=== PATIENT | female | born 1995 | race Caucasian/White ===

== ENCOUNTER 2025-02-25 21:28 | Outpatient (CLI) | payer MEDICAID, SELFPAY ==
--- OUTSIDE RECORDS SUMMARY | 2025-02-25 21:33 | XMS RPT_ITS | CCD ---
Author Organization [facility] Inform ion [facility] Care Team Providers Care Drug Abuse Worker Name Role Phone Major KETTLE COOK, Maren E Unavailable Unavailable Major KETTLE COOK, Maren E Unavailable Unavailable ARNOLD DIAL Attending Unavailable KELSEA WHITE Primary Care Unava ilable KELSEA WHITE Primary Care Unava ilable KAL SALVADOR, JANICE Attending Unavailabl e KELSEA WHITE Primary Care Unava ilable ARNOLD DIAL Attending Unavailable KELSEA WHITE Attending Unava ilable KELSEA WHITE Primary Care Unava ilable Amy Meyers CNM Attending Provider Halle Barker CNM Attending Provider Halle Barker CNM Referring Provider Dr. Kelsea Luz DO Attending Provider Jo WATTS, Dr. Moreno Attending Provider [phone] KELSEA WHITE DO Primary Care [facility] KELSEA DON Primary Care Unava ilable MAGDA SUAZO Attending Unavailable KELSEA VASQUEZ Referring Unavailab le KELSEA DON Primary Care Unava ilable KARI KAY Attending Unavailable KELSEA VASQUEZ Referring Unavailab le KELSEA WHITE DO Primary Care Un available DR JAY RAINES MD Attending Unavailab le JHON-KELSEA FLORENTINO DO Primary Care Un available KELSEA WHITE DO Attending Un available Heather Webber Attending Provider Dr. Tiffanie Osorio MD Referring Provider [phone] Amy Meyers CNM Attending Provider [phone] Kelsea Luz Attending UnavailTiffanie Pizano Attending Unavailable Jack HUERTA, Heather Attending Unavailable Amy Meyers Attending Unavailable Halle aBrker Attending Unavailable Halle Barker Referring Unavailable Tiffanie Osorio Attending Unavailable Amy Meyers Attending Unavailable Amy Meyers Attending Unavailable Kelsea Luz Attending UnavailAmy Roberts Attending Unavailable Amy Meyers Referring Unavailable Tiffanie Osorio Referring Unavailable Tiffanie Osorio Attending Unavailable Luigi, Amy Attending Unavailable Tiffanie Osorio Attending Unavailable Jack HUERTA, Heather Attending Unavailable Medications Current Medications Medication Drug Class(es) Dates Sig (Normalized) Sig (Original) Multivit 83-Btbx-Shclvu 1-Dha (Pnv-Dha) 27 mg iron-1 mg -300 mg capsule (9 sources) Start: 08-04-2024 Multivit 36-Rjxh-Rqfdjt 1-Dha (Pnv-Dha) 27 mg iron-1 mg -300 mg capsule Active NMA PO August 04, 2024 1:00am ondansetron 4 mg oral tablet (1 source) Serotonin-3 Receptor Antagonist Start: 10-30-2024 End: 11-02-2024 Zofran 4 mg oral tablet Dose : 4 mg = 1 tab(s), Oral, q8h, PRN Nausea/Vomiting, X 3 day(s), # 9 tab(s), 0 Refill(s), 11/02/24 4:30:00 PM EDT Start Date: 10/30/24 Stop Date: 11/02/24 Status: Ordered Quantity: 9.0 Unit: tab(s) Repeat number: 1 vitamin b6 10 mg oral tablet (9 sources) Start: 08-04-2024 take 1 tablet by mouth three times daily Pyridoxine (Vitamin B6) 10 mg tablet Active 10 mg PO THREE TIMES A DAY August 04, 2024 1:00am Completed/Discontinued Medications Medication Drug Class(es) Dates Sig (Normalized) Sig (Original) ibuprofen 200 mg oral tablet (2 sources) Nonsteroidal Anti-inflammatory Drug Start: 01-15-2017 ADDAPRIN 200 MG TABS PRN IBUPROFEN [id number] Maren E Pedrito KETTLE COOK Problems Active Problems Problem Classification Problem Date Documented Da te Episodic/Chronic Headache; including migraine (2 sources) Headache; including migraine; Translations: [Headache, unspecified] Onset: 05-22-2022 Immunizations and screening for infectious disease (1 source) Encounter for immunization; Translations: [Encounter for immunization] Onset: 01-01-2025 Episodic Nausea and vomiting (1 source) Nausea 07-13-2024 Episodic Nutritional deficiencies (1 source) Vitamin D deficiency 04-01-2022 Chronic Other complications of (20 sources) Maternal obesity complicating , childbirth and the puerperium, antepartum; Translations: [Obesity complicating , unspecified trimester] 08-21-2024 Chronic Comment on above: [id number] Other complications of (1 source) Obesity complicating , second trimester; Translations: [Obesity complicating , second trimester] Onset: 02-22-2025 Chronic Other complications of (1 source) Obesity complicating , unspecified trimester; Translations: [Obesity complicating , unspecified trimester] Onset: 10-20-2024 Chronic Other complications of (20 sources) H/O: depression; Translations: [History of depression, currently ] 08-04-2024 Episodic Other complications of (20 sources) RhD negative; Translations: [Other specified related conditions, unspecified trimester] 08-04-2024 Episodic Comment on above: O-, Rhogam @ 28wks(H usband is O+) O-, Rhogam @ 28wks(H usband is O+) given 12/20/24 Other complications of (1 source) Vomiting of ; Translations: [Vomiting of , unspecified] Onset: 10-30-2024 Episodic Other complications of (1 source) Vomiting of , unspecified; Translations: [Vomiting of , unspecified] Onset: 10-30-2024 Episodic Other complications of (1 source) Other specified related conditions, unspecified trimester; Translations: [Other specified related conditions, unspecified trimester] Onset: 02-22-2025 Episodic Other nutritional; endocrine; and metabolic disorders (1 source) Body mass index 30+ - obesity 04-01-2023 Chronic Other nutritional; endocrine; and metabolic disorders (1 source) Obesity 04-01-2023 Chronic Other and delivery including normal (20 sources) Normal ; Translations: [Encounter for supervision of normal , unspecified, unspecified trimester] Onset: 10-20-2024 08-21-2024 Episodic Comment on above: PRR, , DIANDRA 03/14, ADAM Olivares, Julio declined NIPT & Simon ier testing declined NIPT & Simon ier testing. low normal CL-repeat US 2 weeks. PRR, , DIANDRA 03/14,boy herve PC Elise, Julio Other upper respiratory disease (1 source) Allergic rhinitis 03-31-2021 Chronic Other upper respiratory disease (2 sources) Pain in throat; Translations: [Pain in throat] Onset: 05-22-2022 Episodic Other upper respiratory disease (2 sources) Nasal congestion; Translations: [Nasal congestion] Onset: 05-22-2022 Episodic Residual codes; unclassified (20 sources) Family history of malignant neoplasm of breast in first degree relative; Translations: [Family history of malignant neoplasm of breast] 08-04-2024 Episodic Comment on above: Mother 35yo- , Unknown if genetic testing was done Residual codes; unclassified (1 source) Family history of malignant neoplasm of breast; Translations: [Family history of malignant neoplasm of breast] Onset: 02-22-2025 Episodic Residual codes; unclassified (1 source) Unspecified blood type, Rh negative; Translations: [Unspecified blood type, Rh negative] Onset: 02-22-2025 Episodic Residual codes; unclassified (1 source) 37 weeks gestation of ; Translations: [37 weeks gestation of ] Onset: 02-22-2025 Episodic Residual codes; unclassified (1 source) 36 weeks gestation of ; Translations: [36 weeks gestation of ] Onset: 02-16-2025 Episodic Residual codes; unclassified (1 source) 31 weeks gestation of ; Translations: [31 weeks gestation of ] Onset: 01-15-2025 Episodic Residual codes; unclassified (1 source) 29 weeks gestation of ; Translations: [29 weeks gestation of ] Onset: 01-01-2025 Episodic Residual codes; unclassified (1 source) 28 weeks gestation of ; Translations: [28 weeks gestation of ] Onset: 12-20-2024 Episodic Screening and history of mental health and substance abuse codes (1 source) Personal history of other mental and behavioral disorders; Translations: [Personal history of other mental and behavioral disorders] Onset: 02-22-2025 Episodic Unclassified (1 source) Contact with and (suspected) exposure to COVID-19; Translations: [Contact with and (suspected) exposure to COVID-19] Onset: 06-30-2021 Unclassified (1 source) Patient encounter status 03-31-2021 Unclassified (1 source) Other specified diseases and conditions complicating ; Translations: [Other specified diseases and conditions complicating ] Onset: 02-22-2025 Past or Other Problems Problem Classification Problem Date Documented Da te Episodic/Chronic Crushing injury or internal injury (2 sources) Crushing injury of right ring finger, initial encounter; Translations: [Crushing injury of right ring finger, initial encounter] Onset: 01-03-2017 01-15-2017 Episodic Open wounds of extremities (2 sources) Unspecified open wound of right ring finger with damage to nail, initial encounter; Translations: [Unspecified open wound of right ring finger with damage to nail, initial encounter] Onset: 01-15-2017 01-15-2017 Episodic Other screening for suspected conditions (not mental disorders or infectious disease) (1 source) Encounter for screening for malignant neoplasm of cervix; Translations: [Encounter for screening for malignant neoplasm of cervix] Onset: 08-30-2024 Episodic Residual codes; unclassified (1 source) 19 weeks gestation of ; Translations: [19 weeks gestation of ] Onset: 10-20-2024 Episodic Residual codes; unclassified (1 source) 10 weeks gestation of ; Translations: [10 weeks gestation of ] Onset: 08-30-2024 Episodic Unclassified (1 source) Contact with and (suspected) exposure to COVID-19; Translations: [Contact with and (suspected) exposure to COVID-19] Onset: 06-30-2021 Results Test Name Value Interpretation Reference Range Facility Chief Inspector Office Visit Reporton 02-22-2025 Chief Inspector Office Visit Report [facility] [address] [place] [id number] OFFICE VISIT Date of Service: 02/22/25 MR#: [id number] Acct: [id number] Name: RADHA DOUGLAS Rep #: [id number] : 1995 Provider: Dr. Kelsea Matthews DO Age/Sex: 29/F Location: [facility] [place] Status: Signed Intake Vital Signs 01/15/25 10:03 02/16/25 09:25 02/22/25 09:59 Height 5 ft 8 in 5 ft 8 in 5 ft 8 in Weight: 213 lb 2 oz BMI 32.3 BP 122/75 H Intake Visit Reasons: 37 wk ob Chief Complaint: 37 Week OB Clerk To Justice Required: No Is patient in pain?: No Allergies No Known Allergies Allergy (Unverified 02/22/25 10:00) Medications ???Medication ???Instructions ???Recorded ???Confirmed ???Type multivitamin no.47-iron fum 27 cap PO 08/04/24 02/22/25 History mg-folate no.1 1 mg-dha 300 mg capsule (PNV-DHA) pyridoxine (vitamin B6) 10 mg 10 mg PO TID 08/04/24 02/22/25 His tory tablet Last Menstrual Period: 06/07/24 Zika: Zika virus screening: Negative : No PFSH PFSH Medical History Seasonal allergies Family History Mother Cancer, Onset Age: 19 cervical Breast cancer, Onset Age: 35 Grandmother Diabetes Maternal Type 1 Social History adopted: No household members: spouse and children housing: house number of children: 1 current occupational status: employed 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 pets and animals: Yes pets and animals: dog(s) history of recent travel: No sexually active: Yes Smoking Status: Never smoker alcohol intake: never substance use type: does not use well-balanced diet: daily or most days caffeine: No eating out: 1-3 times/week during the past year weight has: remained stable what type of physical activity do you participate in: none cristobal/mormon: Yarsanism seatbelt use: always do you feel safe at home: Yes additional social history: Julio History 2 Elective abortions Hx Para 1 Spontaneous abortions Hx # Term Pregnancies Ectopic pregnancies Hx # Pregnancies Multiple births # of living children 1 Past Pregnancies Del. Date Name GA/Weeks Outcome Route Bth Weight Infant Gen Labor Lgth Anesthesia Del Locatn Provider FOB 12/15/20 [facility] 37 live - full term 7#8oz Male epidural Mónica C noemy Kim HPI 37 wk ob Details: RADHA DOUGLAS is a 29 year old who presents for routine OB visit. OB Visit DIANDRA Calculator Estimated Delivery Date Method Current WG Current Estimate 03/14/25 LMP (Certain) 37w 1d Other Estimates 03/20/25 Ultrasound #1 36w 2d Expected Delivery Route/Plan Labor Preferences- CB/BF classes: no labor support person: Enrique labor intervention preferences: [] pain management options preferred: limited cut cord/dad catch: yes : yes PP control planned: discussed discussed possible routes of delivery and associated risks: [] special requests: [] Specific Issue/Plans Covid status: [] Flu vaccine: [] Tdap vaccine: given Rhogam: given 12/20/24 LARC form signed: given 01/01/25 Problem list reviewed and updated with the most current plan of care details and appropriate orders placed. Relevant counseling for the gestational age provided. Continue routine care and follow up unless otherwise noted in visit notes/problem list details Initial Weight: 195 lb Date -???-???-???-???- ???-???-???-???-? ??-???-???-???- EGA Weight BP Urine Prot -???-???-???-???- ???-???-???-???-? ??-???-???-???- Glucose FHR FuHt Pres Dilation -???-???-???-???- ???-???-???-???-? ??-???-???-???- Effaced St Visit Note 08/18/24 -???-???-???-???- ???-???-???-???-? ??-???-???-???- 10w 2d 195 lb 6 oz (+6 oz) 122/57 -???-???-???-???- ???-???-???-???-? ??-???-???-???- 178 -???-???-???-???- ???-???-???-???-? ??-???-???-???- KW- CRL 2.63 cm. measuring 9.3 weeks. Declines NIPT. 09/21/24 -???-???-???-???- ???-???-???-???-? ??-???-???-???- 15w 1d 191 lb 6 oz (-3 lb 10 oz) 122/73 Negative -???-???-???-???- ???-???-???-???-? ??-???-???-???- Negative 145 -???-???-???-???- ???-???-???-???-? ??-???-???-???- JV- no cramp ing or spotting. has the complaint of shortness of breath at times. has some air hunger of complaints. 10/20/24 -???-???-???-???- ???-???-???-???-? ??-???-???-???- 19w 2d 193 lb 8 oz (-1 lb 8 oz) 107/61 Negative -???-???-???-???- ???-???-???-???-? ??-???-???-???- Negative 145 -???-???-???-???- ???-???-???-???-? ??-???-???-???- Sm- no vb cr amping 11/13/24 -???-???-???-???- ???-???-???-???-? ??-???-???-???- 22w 5d 197 lb 2 oz (+2 lb 2 oz) 110 (more content not included)... Normal [facility] Rule out Beta Strep (Grp. B) on 02-18-2025 HARJEET Group B Beta Streptococcus is not isolated. Normal [facility] Comment on above: Performed By: #### M [id number] #### [facility] [address] [place], [place], [address] Chief Inspector Office Visit Reporton 02-16-2025 Chief Inspector Office Visit Report [facility] [address], [address] [place] [address] OFFICE VISIT Date of Service: 02/16/25 MR#: [id number] Acct: [id number] Name: RADHA DOUGLAS Antonette Rep #: [id number] : 1995 Provider: LUIS Brar ams Age/Sex: 29/F Location[place] [facility] Status: Signed Intake Vital Signs 01/15/25 10:03 01/29/25 08:53 02/16/25 09:25 Height 5 ft 8 in 5 ft 8 in 5 ft 8 in Weight: 210 lb 3 oz BMI 31.9 BP 121/80 H Intake Visit Reasons: 36 wk ob Chief Complaint: 36wk OB Clerk To Justice Required: No Is patient in pain?: No Allergies No Known Allergies Allergy (Unverified 02/16/25 09:22) Medications ???Medication ???Instructions ???Recorded ???Confirmed ???Type multivitamin no.47-iron fum 27 cap PO 08/04/24 02/16/25 History mg-folate no.1 1 mg-dha 300 mg capsule (PNV-DHA) pyridoxine (vitamin B6) 10 mg 10 mg PO TID 08/04/24 02/16/25 His tory tablet Last Menstrual Period: 06/07/24 : No PFSH PFSH Medical History Seasonal allergies Family History Mother Cancer, Onset Age: 19 cervical Breast cancer, Onset Age: 35 Grandmother Diabetes Maternal Type 1 Social History adopted: No household members: spouse and children housing: house number of children: 1 current occupational status: employed 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 pets and animals: Yes pets and animals: dog(s) history of recent travel: No sexually active: Yes Smoking Status: Never smoker alcohol intake: never substance use type: does not use well-balanced diet: daily or most days caffeine: No eating out: 1-3 times/week during the past year weight has: remained stable what type of physical activity do you participate in: none cristobal/mormon: Yarsanism seatbelt use: always do you feel safe at home: Yes additional social history: Julio History 2 Elective abortions Hx Para 1 Spontaneous abortions Hx # Term Pregnancies Ectopic pregnancies Hx # Pregnancies Multiple births # of living children 1 Past Pregnancies Del. Date Name GA/Weeks Outcome Route Bth Weight Infant Gen Labor Lgth Anesthesia Del Locatn Provider FOB 12/15/20 [facility] 37 live - full term 7#8oz Male epidural Mónica Kim HPI 36 wk ob Details: RADHA DOUGLAS is a 29 year old who presents for routine OB visit. OB Visit DIANDRA Calculator Estimated Delivery Date Method Current WG Current Estimate 03/14/25 LMP (Certain) 36w 2d Other Estimates 03/20/25 Ultrasound #1 35w 3d Expected Delivery Route/Plan Labor Preferences- CB/BF classes: no labor support person: Enrique labor intervention preferences: [] pain management options preferred: limited cut cord/dad catch: yes : yes PP control planned: discussed discussed possible routes of delivery and associated risks: [] special requests: [] Specific Issue/Plans Covid status: [] Flu vaccine: [] Tdap vaccine: given Rhogam: given 12/20/24 LARC form signed: given 01/01/25 Problem list reviewed and updated with the most current plan of care details and appropriate orders placed. Relevant counseling for the gestational age provided. Continue routine care and follow up unless otherwise noted in visit notes/problem list details Initial Weight: 195 lb Date -???-???-???-???- ???-???-???-???-? ??-???-???-???- EGA Weight BP Urine Prot -???-???-???-???- ???-???-???-???-? ??-???-???-???- Glucose FHR FuHt Pres Dilation -???-???-???-???- ???-???-???-???-? ??-???-???-???- Effaced St Visit Note 08/18/24 -???-???-???-???- ???-???-???-???-? ??-???-???-???- 10w 2d 195 lb 6 oz (+6 oz) 122/57 -???-???-???-???- ???-???-???-???-? ??-???-???-???- 178 -???-???-???-???- ???-???-???-???-? ??-???-???-???- KW- CRL 2.63 cm. measuring 9.3 weeks. Declines NIPT. 09/21/24 -???-???-???-???- ???-???-???-???-? ??-???-???-???- 15w 1d 191 lb 6 oz (-3 lb 10 oz) 122/73 Negative -???-???-???-???- ???-???-???-???-? ??-???-???-???- Negative 145 -???-???-???-???- ???-???-???-???-? ??-???-???-???- JV- no cramp ing or spotting. has the complaint of shortness of breath at times. has some air hunger of complaints. 10/20/24 -???-???-???-???- ???-???-???-???-? ??-???-???-???- 19w 2d 193 lb 8 oz (-1 lb 8 oz) 107/61 Negative -???-???-???-???- ???-???-???-???-? ??-???-???-???- Negative 145 -???-???-???-???- ???-???-???-???-? ??-???-???-???- Sm- no vb cr amping 11/13/24 -???-???-???-???- ???-???-???-???-? ??-???-???-???- 22w 5d 197 lb 2 oz (+2 lb 2 oz) 110/68 Negative -???-???-???-???- ???-???-???-???-? ??-???-???-???- Neg (more content not included)... Normal [facility] - Chemistry and C hemistry - challengeOrdered By: Amy Meyers on 01-29-2025 Glucose Ql (U) Negative [facility] - UrinalysisOrder ed By: Amy Meyers on 01-29-2025 Protein Ql (U) Negative [facility] Chief Inspector Office Visit Reporton 01-29-2025 Chief Inspector Office Visit Report [facility] [address], [address] [place] [address] OFFICE VISIT Date of Service: 01/29/25 MR#: [id number] Acct: [id number] Name: RADHA DOUGLAS Rep #: [id number] : 1995 Provider: LUIS Brar ams Age/Sex: 29/F Location: [facility] [place] Status: Signed Intake Vital Signs 11/13/24 13:28 01/15/25 10:03 01/29/25 08:53 Height 5 ft 8 in 5 ft 8 in 5 ft 8 in Weight: 204 lb 8 oz BMI 31.1 BP 121/72 H Intake Visit Reasons: 34wk ob Chief Complaint: 34wk ob Clerk To Justice Required: No Is patient in pain?: No Allergies No Known Allergies Allergy (Unverified 01/29/25 08:51) Medications ???Medication ???Instructions ???Recorded ???Confirmed ???Type multivitamin no.47-iron fum 27 cap PO 08/04/24 01/29/25 History mg-folate no.1 1 mg-dha 300 mg capsule (PNV-DHA) pyridoxine (vitamin B6) 10 mg 10 mg PO TID 08/04/24 01/29/25 His tory tablet Last Menstrual Period: 06/07/24 : No PFSH PFSH Medical History Seasonal allergies Family History Mother Cancer, Onset Age: 19 cervical Breast cancer, Onset Age: 35 Grandmother Diabetes Maternal Type 1 Social History adopted: No household members: spouse and children housing: house number of children: 1 current occupational status: employed 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 pets and animals: Yes pets and animals: dog(s) history of recent travel: No sexually active: Yes Smoking Status: Never smoker alcohol intake: never substance use type: does not use well-balanced diet: daily or most days caffeine: No eating out: 1-3 times/week during the past year weight has: remained stable what type of physical activity do you participate in: none cristobal/mormon: Yarsanism seatbelt use: always do you feel safe at home: Yes additional social history: Julio History 2 Elective abortions Hx Para 1 Spontaneous abortions Hx # Term Pregnancies Ectopic pregnancies Hx # Pregnancies Multiple births # of living children 1 Past Pregnancies Del. Date Name GA/Weeks Outcome Route Bth Weight Gen Labor Lgth Anesthesia Del Locatn Provider FOB 12/15/20 [facility] 37 live - full term 7#8oz Male epidural Mónica Hart noemy Kim HPI 34wk ob Details: RADHA DOUGLAS is a 29 year old who presents for routine OB visit. OB Visit DIANDRA Calculator Estimated Delivery Date Method Current WG Current Estimate 03/14/25 LMP (Certain) 33w 5d Other Estimates 03/20/25 Ultrasound #1 32w 6d Expected Delivery Route/Plan Labor Preferences- CB/BF classes: no labor support person: Enrique labor intervention preferences: [] pain management options preferred: limited cut cord/dad catch: yes : yes PP control planned: discussed discussed possible routes of delivery and associated risks: [] special requests: [] Specific Issue/Plans Covid status: [] Flu vaccine: [] Tdap vaccine: given Rhogam: given 12/20/24 LARC form signed: given 01/01/25 Problem list reviewed and updated with the most current plan of care details and appropriate orders placed. Relevant counseling for the gestational age provided. Continue routine care and follow up unless otherwise noted in visit notes/problem list details Initial Weight: 195 lb Date -???-???-???-???- ???-???-???-???-? ??-???-???-???- EGA Weight BP Urine Prot -???-???-???-???- ???-???-???-???-? ??-???-???-???- Glucose FHR FuHt Pres Dilation -???-???-???-???- ???-???-???-???-? ??-???-???-???- Effaced St Visit Note 08/18/24 -???-???-???-???- ???-???-???-???-? ??-???-???-???- 10w 2d 195 lb 6 oz (+6 oz) 122/57 -???-???-???-???- ???-???-???-???-? ??-???-???-???- 178 -???-???-???-???- ???-???-???-???-? ??-???-???-???- KW- CRL 2.63 cm. measuring 9.3 weeks. Declines NIPT. 09/21/24 -???-???-???-???- ???-???-???-???-? ??-???-???-???- 15w 1d 191 lb 6 oz (-3 lb 10 oz) 122/73 Negative -???-???-???-???- ???-???-???-???-? ??-???-???-???- Negative 145 -???-???-???-???- ???-???-???-???-? ??-???-???-???- JV- no cramp ing or spotting. has the complaint of shortness of breath at times. has some air hunger of complaints. 10/20/24 -???-???-???-???- ???-???-???-???-? ??-???-???-???- 19w 2d 193 lb 8 oz (-1 lb 8 oz) 107/61 Negative -???-???-???-???- ???-???-???-???-? ??-???-???-???- Negative 145 -???-???-???-???- ???-???-???-???-? ??-???-???-???- Sm- no vb cr amping 11/13/24 -???-???-???-???- ???-???-???-???-? ??-???-???-???- 22w 5d 197 lb 2 oz (+2 lb 2 oz) 110/68 Negative -???-???-???-???- ???-???-???-???-? ??-???-???-???- Negat (more content not included)... Normal [facility] - Chemistry and C hemistry - challengeOrdered By: Tiffanie Osorio on 01-15-2025 Glucose Ql (U) Negative [facility] - UrinalysisOrder ed By: Tiffanie Osorio on 01-15-2025 Protein Ql (U) Negative [facility] Chief Inspector Office Visit Reporton 01-15-2025 Chief Inspector Office Visit Report [facility] [address], [address] [place] [address] OFFICE VISIT Date of Service: 01/15/25 MR#: [id number] Acct: [id number] Name: EDELRADHA STEVENSON Antonette Rep #: [id number] : 1995 Provider: Dr. Tiffanie rahman MD Age/Sex: 29/F Location: [facility] [place] Status: Signed Intake Vital Signs 11/13/24 13:28 01/01/25 10:03 01/15/25 10:03 Height 5 ft 8 in 5 ft 8 in 5 ft 8 in Weight: 205 lb 3 oz BMI 31.1 BP 120/74 Intake Visit Reasons: 32wk ob Clerk To Justice Required: No Is patient in pain?: No Allergies No Known Allergies Allergy (Unverified 01/15/25 10:04) Medications ???Medication ???Instructions ???Recorded ???Confirmed ???Type multivitamin no.47-iron fum 27 cap PO 08/04/24 01/15/25 History mg-folate no.1 1 mg-dha 300 mg capsule (PNV-DHA) pyridoxine (vitamin B6) 10 mg 10 mg PO TID 08/04/24 01/15/25 His tory tablet Last Menstrual Period: 06/07/24 Zika: Zika virus screening: Negative : No PFSH PFSH Medical History Seasonal allergies Family History Mother Cancer, Onset Age: 19 cervical Breast cancer, Onset Age: 35 Grandmother Diabetes Maternal Type 1 Social History adopted: No household members: spouse and children housing: house number of children: 1 current occupational status: employed 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 pets and animals: Yes pets and animals: dog(s) history of recent travel: No sexually active: Yes Smoking Status: Never smoker alcohol intake: never substance use type: does not use well-balanced diet: daily or most days caffeine: No eating out: 1-3 times/week during the past year weight has: remained stable what type of physical activity do you participate in: none cristobal/mormon: Yarsanism seatbelt use: always do you feel safe at home: Yes additional social history: Julio History 2 Elective abortions Hx Para 1 Spontaneous abortions Hx # Term Pregnancies Ectopic pregnancies Hx # Pregnancies Multiple births # of living children 1 Past Pregnancies Del. Date Name GA/Weeks Outcome Route Bth Weight Infant Gen Labor Lgth Anesthesia Del Locatn Provider FOB 12/15/20 Elise 37 live - full term 7#8oz Male epidural Mónica Kim HPI 32wk ob Details: RADHA DOUGLAS is a 29 year old who presents for routine OB visit. OB Visit DIANDRA Calculator Estimated Delivery Date Method Current WG Current Estimate 03/14/25 LMP (Certain) 31w 5d Other Estimates 03/20/25 Ultrasound #1 30w 6d Expected Delivery Route/Plan Labor Preferences- CB/BF classes: no labor support person: Enrique labor intervention preferences: [] pain management options preferred: limited cut cord/dad catch: yes : yes PP control planned: discussed discussed possible routes of delivery and associated risks: [] special requests: [] Specific Issue/Plans Covid status: [] Flu vaccine: [] Tdap vaccine: given Rhogam: given 12/20/24 LARC form signed: given 01/01/25 Problem list reviewed and updated with the most current plan of care details and appropriate orders placed. Relevant counseling for the gestational age provided. Continue routine care and follow up unless otherwise noted in visit notes/problem list details Initial Weight: 195 lb Date -???-???-???-???- ???-???-???-???-? ??-???-???-???- EGA Weight BP Urine Prot -???-???-???-???- ???-???-???-???-? ??-???-???-???- Glucose FHR FuHt Pres Dilation -???-???-???-???- ???-???-???-???-? ??-???-???-???- Effaced St Visit Note 08/18/24 -???-???-???-???- ???-???-???-???-? ??-???-???-???- 10w 2d 195 lb 6 oz (+6 oz) 122/57 -???-???-???-???- ???-???-???-???-? ??-???-???-???- 178 -???-???-???-???- ???-???-???-???-? ??-???-???-???- KW- CRL 2.63 cm. measuring 9.3 weeks. Declines NIPT. 09/21/24 -???-???-???-???- ???-???-???-???-? ??-???-???-???- 15w 1d 191 lb 6 oz (-3 lb 10 oz) 122/73 Negative -???-???-???-???- ???-???-???-???-? ??-???-???-???- Negative 145 -???-???-???-???- ???-???-???-???-? ??-???-???-???- JV- no cramp ing or spotting. has the complaint of shortness of breath at times. has some air hunger of complaints. 10/20/24 -???-???-???-???- ???-???-???-???-? ??-???-???-???- 19w 2d 193 lb 8 oz (-1 lb 8 oz) 107/61 Negative -???-???-???-???- ???-???-???-???-? ??-???-???-???- Negative 145 -???-???-???-???- ???-???-???-???-? ??-???-???-???- Sm- no vb cr amping 11/13/24 -???-???-???-???- ???-???-???-???-? ??-???-???-???- 22w 5d 197 lb 2 oz (+2 lb 2 oz) 110/68 Negative -???-???-???-???- ???-???-???-? (more content not included)... Normal [facility] - Chemistry and C hemistry - challengeOrdered By: Heather Santiago on 01-01-2025 Glucose Ql (U) Negative [facility] - UrinalysisOrder ed By: Heather Santiago on 01-01-2025 Protein Ql (U) Negative [facility] Chief Inspector Office Visit Reporton 01-01-2025 Chief Inspector Office Visit Report [facility] [address], [address] [place] [address] OFFICE VISIT Date of Service: 01/01/25 MR#: [id number] Acct: [id number] Name: RADHA DOUGLAS Rep #: [id number] : 1995 Provider: ESTEBAN guallpa Age/Sex: 29/F Location: [facility] Status: Signed with Addenda ADDENDUM by Alexandra Saucedo on 01/01/25 at 1020 Office Procedure Documentation entered by Alexandra Saucedo 01/01/25 10:20: Immunizations Adacel(Tdap Adolesn/Adult)(PF ) 2 Lf-(2.5-5-3-5)-5 Lf/0.5 mL IM syringe Performing Provider: Heather Santiago NP, ESTEBAN Performing Location: [facility] Administered by: Alexandra Saucedo on 01/01/25 10:19 Dose Route Admin Location Dispensed Lot Number Expiration Date NDC Man ufacturer 0.5 mL IM Left Arm (SQ) 0.5 mL [id number] 11/05/26 05063-180-51 [employer] PASTEUR VIS Given Date VIS Provided VIS Publication Date 01/01/25 Single Vaccine 24 Eligibility Eligibility Date Funding Source None Date _ cc: * Signed Intake Vital Signs 11/13/24 13:28 12/20/24 14:57 01/01/25 10:03 Height 5 ft 8 in 5 ft 8 in 5 ft 8 in Weight: 201 lb BMI 30.5 BP 123/81 H Intake Visit Reasons: 30wk ob Clerk To Justice Required: No Is patient in pain?: No Allergies No Known Allergies Allergy (Unverified 01/01/25 10:04) Medications ???Medication ???Instructions ???Recorded ???Confirmed ???Type multivitamin no.47-iron fum 27 cap PO 08/04/24 01/01/25 History mg-folate no.1 1 mg-dha 300 mg capsule (PNV-DHA) pyridoxine (vitamin B6) 10 mg 10 mg PO TID 08/04/24 01/01/25 His tory tablet Last Menstrual Period: 06/07/24 Zika: Zika virus screening: Negative : No Have you fallen in the past year?: No PFSH PFSH Medical History Seasonal allergies Family History Mother Cancer, Onset Age: 19 cervical Breast cancer, Onset Age: 35 Grandmother Diabetes Maternal Type 1 Social History adopted: No household members: spouse and children housing: house number of children: 1 current occupational status: employed 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 pets and animals: Yes pets and animals: dog(s) history of recent travel: No sexually active: Yes Smoking Status: Never smoker alcohol intake: never substance use type: does not use well-balanced diet: daily or most days caffeine: No eating out: 1-3 times/week during the past year weight has: remained stable what type of physical activity do you participate in: none cristobal/mormon: Yarsanism seatbelt use: always do you feel safe at home: Yes additional social history: Julio History 2 Elective abortions Hx Para 1 Spontaneous abortions Hx # Term Pregnancies Ectopic pregnancies Hx # Pregnancies Multiple births # of living children 1 Past Pregnancies Del. Date Name GA/Weeks Outcome Route Bth Weight Gen Labor Lgth Anesthesia Del Locatn Provider FOB 12/15/20 Elise 37 live - full term 7#8oz Male epidural Mónica Kim HPI 30wk ob Details: RADHA DOUGLAS is a 29 year old who presents for routine OB visit. OB Visit DIANDRA Calculator Estimated Delivery Date Method Current WG Current Estimate 03/14/25 LMP (Certain) 29w 5d Other Estimates 03/20/25 Ultrasound #1 28w 6d Expected Delivery Route/Plan Labor Preferences- CB/BF classes: no labor support person: Enrique labor intervention preferences: [] pain management options preferred: limited cut cord/dad catch: yes : yes PP control planned: discussed discussed possible routes of delivery and associated risks: [] special requests: [] Specific Issue/Plans Covid status: [] Flu vaccine: [] Tdap vaccine: [] Rhogam: given 12/20/24 LARC form signed: given 01/01/25 Problem list reviewed and updated with the most current plan of care details and appropriate orders placed. Relevant counseling for the gestational age provided. Continue routine care and follow up unless otherwise noted in visit notes/problem list details Initial Weight: 195 lb Date -???-???-???-???- ???-???-???-???-? ??-???-???-???- EGA Weight BP Urine Prot -???-???-???-???- ???-???-???-???-? ??-???-???-???- Glucose FHR FuHt Pres Dilation -???-???-???-???- ???-???-???-???-? ??-???-???-???- Effaced St Visit Note 08/18/24 -???-???-???-???- ???-???-???-???-? ??-???-???-???- 10w 2d 195 lb 6 oz (+6 oz) 122/57 -???-???-???-???- ???-???-???-???-? ??-???-???-???- 178 -???-???-???-???- ???-???-???-???-? ??-???-???-???- KW- CRL 2.63 cm. measuring (more content not included)... Normal [facility] Absolute lymphocyte countOrd ered By: Tiffanie Osorio on 12-20-2024 Lymphocytes Auto (Unsp spec) [#/Vol] 2.22 10*3/uL 0.83-4.51 [facility] Absolute neutrophil countOrd ered By: Tiffanie Osorio on 12-20-2024 Neutrophils (Bld) [#/Vol] 10.5 10*3/uL High 2.0-7.7 [facility] Automated lymphocyte count a s percentage of total leukocytesOrdered By: Tiffanie Osorio on 12-20-2024 Lymphocytes/100 WBC Auto (Un sp spec) 16.0 % Low 19-41 [facility] Basophil percentageOrdered B y: Tiffanie Osorio on 12-20-2024 Basophils/100 WBC (Bld) 0.2 % 0-1 [facility] CBC W/Diff, Automatedon 12-05 Absolute Lymph 2.22 X10 3/uL Normal 0.83-4.51 [facility] Comment on above: Performed By: #### B TS, L501.9985, L3890.6006, L100.0100, L509.8002, L509.4006, L3890.6102, L3890.6301 #### [facility] [address] [facility] [place], [address] Absolute Neut 10.5 X10 3/uL High 2.0-7.7 [facility] Comment on above: Performed By: #### B TS, L501.9985, L3890.6006, L100.0100, L509.8002, L509.4006, L3890.6102, L3890.6301 #### [facility] [address] [place], [address] Basophils/100 WBC (Bld) 0.2 % Normal 0-1 [facility] Comment on above: Performed By: #### B TS, L501.9985, L3890.6006, L100.0100, L509.8002, L509.4006, L3890.6102, L3890.6301 #### [facility] [address] [place], [address] Eosinophils/100 WBC (Bld) 0.6 % Normal 0-5 [facility] Comment on above: Performed By: #### B TS, L501.9985, L3890.6006, L100.0100, L509.8002, L509.4006, L3890.6102, L3890.6301 #### [facility] [address] [place], [address] Erythrocyte distribution wid th (RBC) [Ratio] 14.2 % Normal 11.6-14.6 [facility] Comment on above: Performed By: #### B TS, L501.9985, L3890.6006, L100.0100, L509.8002, L509.4006, L3890.6102, L3890.6301 #### [facility] [address] [place], [address] Hematocrit (Bld) [Volume fraction] 38.3 % Normal 37-47 [facility] Comment on above: Performed By: #### B TS, L501.9985, L3890.6006, L100.0100, L509.8002, L509.4006, L3890.6102, L3890.6301 #### [facility] [address] [place], [address] Hemoglobin (Bld) [Mass/Vol] 12.9 g/dL Normal 12.0-15. 0 [facility] Comment on above: Performed By: #### B TS, L501.9985, L3890.6006, L100.0100, L509.8002, L509.4006, L3890.6102, L3890.6301 #### [facility] [address] [place], [address] IG% 0.800 Normal 0.0-0.9 [facility] Comment on above: Result Comment: IG% - Immature Granulocytes (promyelocytes, myelocytes and metamyelocytes) > 1% indicates that a LEFT SHIFT is Present. Performed By: #### B TS, L501.9985, L3890.6006, L100.0100, L509.8002, L509.4006, L3890.6102, L3890.6301 #### [facility] [address] [place], [address] Lymphocytes/100 WBC (Bld) 16.0 % Low 19-41 [facility] Comment on above: Performed By: #### B TS, L501.9985, L3890.6006, L100.0100, L509.8002, L509.4006, L3890.6102, L3890.6301 #### [facility] [address] [place], [address] MCH (RBC) [Entitic mass] 31.5 pg Normal 27.0-32.0 [facility] Comment on above: Performed By: #### B TS, L501.9985, L3890.6006, L100.0100, L509.8002, L509.4006, L3890.6102, L3890.6301 #### [facility] [address] [place], [address] MCHC (RBC) [Mass/Vol] 33.7 g/dL Normal 32-36 [facility] Comment on above: Performed By: #### B TS, L501.9985, L3890.6006, L100.0100, L509.8002, L509.4006, L3890.6102, L3890.6301 #### [facility] [address] [place], [address] MCV (RBC) [Entitic vol] 93.6 fL Normal 81-99 [facility] Comment on above: Performed By: #### B TS, L501.9985, L3890.6006, L100.0100, L509.8002, L509.4006, L3890.6102, L3890.6301 #### [facility] [address] [place], [address] Monocytes/100 WBC (Bld) 6.4 % Normal 0-10 [facility] Comment on above: Performed By: #### B TS, L501.9985, L3890.6006, L100.0100, L509.8002, L509.4006, L3890.6102, L3890.6301 #### [facility] [address] [place], [address] Neutrophils/100 WBC (Bld) 76.0 % High 47-70 [facility] Comment on above: Performed By: #### B TS, L501.9985, L3890.6006, L100.0100, L509.8002, L509.4006, L3890.6102, L3890.6301 #### [facility] [address] [place], [address] Nucleated RBC (Bld) [#/Vol] 0 10*3/uL Normal 0-5 [facility] Comment on above: Performed By: #### B TS, L501.9985, L3890.6006, L100.0100, L509.8002, L509.4006, L3890.6102, L3890.6301 #### [facility] [address] [place], [address] Platelet mean volume (Bld) [Entitic vol] 10.7 fL Normal 6.2-12.0 [facility] Comment on above: Performed By: #### B TS, L501.9985, L3890.6006, L100.0100, L509.8002, L509.4006, L3890.6102, L3890.6301 #### [facility] [address] [place], [address] Platelets (Bld) [#/Vol] 210 10*3/uL Normal 150-450 [facility] Comment on above: Performed By: #### B TS, L501.9985, L3890.6006, L100.0100, L509.8002, L509.4006, L3890.6102, L3890.6301 #### [facility] [address] [place], [address] RBC (Bld) [#/Vol] 4.09 10*6/uL Low 4.2-5.4 [facility] Comment on above: Performed By: #### B TS, L501.9985, L3890.6006, L100.0100, L509.8002, L509.4006, L3890.6102, L3890.6301 #### [facility] [address] [place], [address] RDW SD 48.9 fl High 35.1-43.9 [facility] Comment on above: Performed By: #### B TS, L501.9985, L3890.6006, L100.0100, L509.8002, L509.4006, L3890.6102, L3890.6301 #### [facility] [address] [place], [address] WBC (Bld) [#/Vol] 13.9 10*3/uL High 4.4-11.0 [facility] Comment on above: Performed By: #### B TS, L501.9985, L3890.6006, L100.0100, L509.8002, L509.4006, L3890.6102, L3890.6301 #### [facility] [address] [place], [address] Eosinophil percentageOrdered By: Tiffanie Osorio on 12-20-2024 Eosinophils/100 WBC (Bld) 0.6 % 0-5 [facility] Erythrocyte distribution wid th ratioOrdered By: Tiffanie Jo on 12-20-2024 Erythrocyte distribution wid th (RBC) [Ratio] 14.2 % 11.6-14.6 [facility] Erythrocyte distribution wid th standard deviationOrdered By: Tiffanie Jo on 12-20-2024 Erythrocyte distribution wid th (RBC) [Ratio] 48.9 fl High 35.1-43.9 [facility] Glucose Challenge Gest 1H 50 nathanael 12-20-2024 GLU GEST 50g 1H 108 mg/dL Normal 70-140 [facility] Comment on above: Performed By: #### B TS, L501.9985, L3890.6006, L100.0100, L509.8002, L509.4006, L3890.6102, L3890.6301 #### [facility] [address] [place], [address] Glucose measurement at [facility] post-dose gestational glucose tolerance testOrdered By: Tiffanie Osorio on 12-20-2024 Glucose [Mass/Vol] 108 mg/dL 70-140 [facility] HIVon 12-20-2024 HIV Non-Reactive Normal Nonreactive [facility] Comment on above: Result Comment: Non- Reactive Reactive Repeatedly reactive samples must be confirmed according to CDC recommended confirmatory algorithms. The subresults for either HIVAG or AHIV can be used as an aid in the selection of the confirmation algorithm for reactive samples. Send out specimens with Reactive results to [facility] for confirmation. Order the HIV antibody detection and differentiation: lc#[id number] Performed By: #### B TS, L501.9985, L3890.6006, L100.0100, L509.8002, L509.4006, L3890.6102, L3890.6301 #### [facility] [address] [place], [place], [address] Hematocrit Auto (Bld) [Volum e fraction]Ordered By: Tiffanie Osorio on 12-20-2024 Hematocrit (Bld) [Volume fraction] 38.3 % 37-47 [facility] Hemoglobin measurementOrdere d By: Tiffanie Osorio on 12-20-2024 Hemoglobin (Bld) [Mass/Vol] 12.9 g/dL 12.0-15. 0 [facility] Immature granulocytes/100 WB C Auto (Bld)Ordered By: Tiffanie Osorio on 12-20-2024 Immature granulocytes/100 WB C (Bld) 0.800 % 0.0-0.9 [facility] Comment on above: IG% - Immature Granu locytes (promyelocytes, myelocytes and metamyelocytes) > 1% indicates that a LEFT SHIFT is Present. Laboratory - Chemistry and C hemistry - challengeOrdered By: Tiffanie Osorio on 12-20-2024 Glucose Ql (U) Negative [facility] - UrinalysisOrder ed By: Tiffanie Osorio on 12-20-2024 Protein Ql (U) Negative [facility] MCV (mean corpuscular volume ) determinationOrdered By: Tiffanie Osorio on 12-20-2024 MCV (RBC) [Entitic vol] 93.6 fL 81-99 [facility] Mean corpuscular hemoglobin (MCH) determinationOrdered By: Tiffanie Osorio on 12-20-2024 MCH (RBC) [Entitic mass] 31.5 pg 27.0-32.0 [facility] Mean corpuscular hemoglobin concentration (MCHC) determinationOrdered By: Tiffanie Osorio on 12-20-2024 MCHC (RBC) [Mass/Vol] 33.7 g/dL 32-36 [facility] Mean platelet volume determi nationOrdered By: Tiffanie Osorio on 12-20-2024 Platelet mean volume (Bld) [Entitic vol] 10.7 fL 6.2-12.0 [facility] Monocyte percentageOrdered B y: Tiffanie Osorio on 12-20-2024 Monocytes/100 WBC (Bld) 6.4 % 0-10 [facility] Neutrophil percentageOrdered By: Tiffanie Osorio on 12-20-2024 Neutrophils/100 WBC (Bld) 76.0 % High 47-70 [facility] No Panel InformationOrdered By: Tiffanie Osorio on 12-20-2024 HIV (1&2) Antibody Non-Reactive Nonreactive [facility] Comment on above: Non-ReactiveReactive Repeatedly reactive samples must be confirmed according to CDC recommended confirmatory algorithms. The subresults for either HIVAG or AHIV can be used as an aid in the selection of the confirmation algorithm for reactive samples.Send out specimens with Reactive results to [facility] for confirmation.Order the HIV antibody detection and differentiation: #[id number] Nucleated red blood cell per centageOrdered By: Tiffanie Osorio on 12-20-2024 Nucleated RBC/100 WBC (Bld) [Ratio] 0 % 0-5 [facility] Chief Inspector Office Visit Reporton 12-20-2024 Chief Inspector Office Visit Report [facility], [address] [place] [address] OFFICE VISIT Date of Service: 12/20/24 MR#: [id number] Acct: [id number] Name: EDELRADHA STEVENSON Antonette Rep #: [id number] : 1995 Provider: Dr. Tiffanie rahman MD Age/Sex: 29/F Location: [facility] Status: Signed Intake Vital Signs 10/20/24 14:17 11/13/24 13:28 12/20/24 14:57 12/20/24 15:15 Height 5 ft 8 in 5 ft 8 in 5 ft 8 in Weight: 201 lb BMI 30.5 BP 117/7 L 117/74 Intake Visit Reasons: 28 WK OB GLUCOSE/RHOGAM Clerk To Justice Required: No Is patient in pain?: No Allergies No Known Allergies Allergy (Unverified 12/20/24 14:59) Medications ???Medication ???Instructions ???Recorded ???Confirmed ???Type multivitamin no.47-iron fum 27 cap PO 08/04/24 12/20/24 History mg-folate no.1 1 mg-dha 300 mg capsule (PNV-DHA) pyridoxine (vitamin B6) 10 mg 10 mg PO TID 08/04/24 12/20/24 His tory tablet Last Menstrual Period: 06/07/24 Zika: Zika virus screening: Negative : No PFSH PFSH Medical History Seasonal allergies Family History Mother Cancer, Onset Age: 19 cervical Breast cancer, Onset Age: 35 Grandmother Diabetes Maternal Type 1 Social History adopted: No household members: spouse and children housing: house number of children: 1 current occupational status: employed 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 pets and animals: Yes pets and animals: dog(s) history of recent travel: No sexually active: Yes Smoking Status: Never smoker alcohol intake: never substance use type: does not use well-balanced diet: daily or most days caffeine: No eating out: 1-3 times/week during the past year weight has: remained stable what type of physical activity do you participate in: none cristobal/mormon: Yarsanism seatbelt use: always do you feel safe at home: Yes additional social history: Julio History 2 Elective abortions Hx Para 1 Spontaneous abortions Hx # Term Pregnancies Ectopic pregnancies Hx # Pregnancies Multiple births # of living children 1 Past Pregnancies Del. Date Name GA/Weeks Outcome Route Bth Weight Gen Labor Lgth Anesthesia Del Locatn Provider FOB 12/15/20 [facility] 37 live - full term 7#8oz Male epidural Mónicaazael Woodward Julio HPI 28 WK OB GLUCOSE/RHOGAM Details: RADHA DOUGLAS is a 29 year old who presents for routine OB visit. OB Visit DIANDRA Calculator Estimated Delivery Date Method Current WG Current Estimate 03/14/25 LMP (Certain) 28w 0d Other Estimates 03/20/25 Ultrasound #1 27w 1d Expected Delivery Route/Plan Labor Preferences- CB/BF classes: [] labor support person: [] labor intervention preferences: [] pain management options preferred: [] cut cord/dad catch: [] : [] PP control planned: [] discussed possible routes of delivery and associated risks: [] special requests: [] Specific Issue/Plans Covid status: [] Flu vaccine: [] Tdap vaccine: [] Rhogam: [] LARC form signed: [] Problem list reviewed and updated with the most current plan of care details and appropriate orders placed. Relevant counseling for the gestational age provided. Continue routine care and follow up unless otherwise noted in visit notes/problem list details Initial Weight: 195 lb Date -???-???-???-???- ???-???-???-???-? ??-???-???-???- EGA Weight BP Urine Prot -???-???-???-???- ???-???-???-???-? ??-???-???-???- Glucose FHR FuHt Pres Dilation -???-???-???-???- ???-???-???-???-? ??-???-???-???- Effaced St Visit Note 08/18/24 -???-???-???-???- ???-???-???-???-? ??-???-???-???- 10w 2d 195 lb 6 oz (+6 oz) 122/57 -???-???-???-???- ???-???-???-???-? ??-???-???-???- 178 -???-???-???-???- ???-???-???-???-? ??-???-???-???- KW- CRL 2.63 cm. measuring 9.3 weeks. Declines NIPT. 09/21/24 -???-???-???-???- ???-???-???-???-? ??-???-???-???- 15w 1d 191 lb 6 oz (-3 lb 10 oz) 122/73 Negative -???-???-???-???- ???-???-???-???-? ??-???-???-???- Negative 145 -???-???-???-???- ???-???-???-???-? ??-???-???-???- JV- no cramp ing or spotting. has the complaint of shortness of breath at times. has some air hunger of complaints. 10/20/24 -???-???-???-???- ???-???-???-???-? ??-???-???-???- 19w 2d 193 lb 8 oz (-1 lb 8 oz) 107/61 Negative -???-???-???-???- ???-???-???-???-? ??-???-???-???- Negative 145 -???-???-???-???- ???-???-???-???-? ??-???-???-???- Sm- no vb cr amping 11/13/24 -???-???-???-???- ???-???-???-???-? ??-???-???-???- 22w 5d 197 lb 2 oz (+2 lb 2 oz) 110/68 Negative -???-???-???-???- ?? (more content not included)... Normal [facility] Platelet countOrdered By: Taran Osorio on 12-20-2024 Platelets (Bld) [#/Vol] 210 10*3/uL 150-450 [facility] RBC Auto (Bld) [#/Vol]Ordere d By: Tiffanie Osorio on 12-20-2024 RBC (Bld) [#/Vol] 4.09 10*6/uL Low 4.2-5.4 [facility] Syphilis Antibodieson 2024 Syphilis Abs Non-Reactive Normal Nonreactive [facility] Comment on above: Performed By: #### B TS, L501.9985, L3890.6006, L100.0100, L509.8002, L509.4006, L3890.6102, L3890.6301 #### [facility] [address] [place], [address] Type AND Screenon 12-20-2024 Ab SCREEN GEL Negative Normal [facility] Comment on above: Order Comment: PN Performed By: #### B TS, L501.9985, L3890.6006, L100.0100, L509.8002, L509.4006, L3890.6102, L3890.6301 #### [facility] [address] [place], [address] White blood cell (WBC) count Ordered By: Tiffanie Osorio on 12-20-2024 WBC (Bld) [#/Vol] 13.9 10*3/uL High 4.4-11.0 [facility] - Chemistry and C hemistry - challengeOrdered By: Heather Santiago on 11-13-2024 Glucose Ql (U) Negative [facility] - UrinalysisOrder ed By: Heather Santiago on 11-13-2024 Protein Ql (U) Negative [facility] Chief Inspector Office Visit Reporton 11-13-2024 Chief Inspector Office Visit Report [facility] [address], [address] [place] [address] OFFICE VISIT Date of Service: 11/13/24 MR#: [id number] Acct: [id number] Name: RADHA DOUGLAS Rep #: [id number] : 1995 Provider: ESTEBAN guallpa Age/Sex: 29/F Location: [facility] Status: Signed Intake Vital Signs 10/20/24 14:17 11/13/24 13:28 Height 5 ft 8 in 5 ft 8 in Weight: 197 lb 2 oz BMI 29.9 BP 110/68 Intake Visit Reasons: 22 WK OB Chief Complaint: 22 Week OB Clerk To Justice Required: No Is patient in pain?: No Allergies No Known Allergies Allergy (Unverified 11/13/24 13:29) Medications ???Medication ???Instructions ???Recorded ???Confirmed ???Type multivitamin no.47-iron fum 27 cap PO 08/04/24 11/13/24 History mg-folate no.1 1 mg-dha 300 mg capsule (PNV-DHA) pyridoxine (vitamin B6) 10 mg 10 mg PO TID 08/04/24 11/13/24 His tory tablet Last Menstrual Period: 06/07/24 Zika: Zika virus screening: Negative : No PFSH PFSH Medical History Seasonal allergies Family History Mother Cancer, Onset Age: 19 cervical Breast cancer, Onset Age: 35 Grandmother Diabetes Maternal Type 1 Social History adopted: No household members: spouse and children housing: house number of children: 1 current occupational status: employed 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 pets and animals: Yes pets and animals: dog(s) history of recent travel: No sexually active: Yes Smoking Status: Never smoker alcohol intake: never substance use type: does not use well-balanced diet: daily or most days caffeine: No eating out: 1-3 times/week during the past year weight has: remained stable what type of physical activity do you participate in: none cristobal/mormon: Yarsanism seatbelt use: always do you feel safe at home: Yes additional social history: Julio History 2 Elective abortions Hx Para 1 Spontaneous abortions Hx # Term Pregnancies Ectopic pregnancies Hx # Pregnancies Multiple births # of living children 1 Past Pregnancies Del. Date Name GA/Weeks Outcome Route Bth Weight Infant Gen Labor Lgth Anesthesia Del Locatn Provider FOB 12/15/20 Elise 37 live - full term 7#8oz Male epidural Mónica Kim HPI 22 WK OB Details: RADHA DOUGLAS is a 29 year old who presents for routine OB visit. OB Visit DIANDRA Calculator Estimated Delivery Date Method Current WG Current Estimate 03/14/25 LMP (Certain) 22w 5d Other Estimates 03/20/25 Ultrasound #1 21w 6d Expected Delivery Route/Plan Labor Preferences- CB/BF classes: [] labor support person: [] labor intervention preferences: [] pain management options preferred: [] cut cord/dad catch: [] : [] PP control planned: [] discussed possible routes of delivery and associated risks: [] special requests: [] Specific Issue/Plans Covid status: [] Flu vaccine: [] Tdap vaccine: [] Rhogam: [] LARC form signed: [] Problem list reviewed and updated with the most current plan of care details and appropriate orders placed. Relevant counseling for the gestational age provided. Continue routine care and follow up unless otherwise noted in visit notes/problem list details Initial Weight: 195 lb Date -???-???-???-???- ???-???-???-???-? ??-???-???-???- EGA Weight BP Urine Prot -???-???-???-???- ???-???-???-???-? ??-???-???-???- Glucose FHR FuHt Pres Dilation -???-???-???-???- ???-???-???-???-? ??-???-???-???- Effaced St Visit Note 08/18/24 -???-???-???-???- ???-???-???-???-? ??-???-???-???- 10w 2d 195 lb 6 oz (+6 oz) 122/57 -???-???-???-???- ???-???-???-???-? ??-???-???-???- 178 -???-???-???-???- ???-???-???-???-? ??-???-???-???- KW- CRL 2.63 cm. measuring 9.3 weeks. Declines NIPT. 09/21/24 -???-???-???-???- ???-???-???-???-? ??-???-???-???- 15w 1d 191 lb 6 oz (-3 lb 10 oz) 122/73 Negative -???-???-???-???- ???-???-???-???-? ??-???-???-???- Negative 145 -???-???-???-???- ???-???-???-???-? ??-???-???-???- JV- no cramp ing or spotting. has the complaint of shortness of breath at times. has some air hunger of complaints. 10/20/24 -???-???-???-???- ???-???-???-???-? ??-???-???-???- 19w 2d 193 lb 8 oz (-1 lb 8 oz) 107/61 Negative -???-???-???-???- ???-???-???-???-? ??-???-???-???- Negative 145 -???-???-???-???- ???-???-???-???-? ??-???-???-???- Sm- no vb cr amping 11/13/24 -???-???-???-???- ???-???-???-???-? ??-???-???-???- 22w 5d 197 lb 2 oz (+2 lb 2 oz) 110/68 Negative -???-???-???-???- ???-???-???-???-? ??-???-???-???- Negative 143 (more content not included)... Normal [facility] .Auto Diffon 10-30-2024 Basophil, Absolute 0.0 10 3/mcL Normal 0.0-0.3 [facility] MAIN Comment on above: Performed By: #### M DW, LIP, ANEU, GFR, ADIFF, CMP, CBC #### [address] [address] Basophils/100 WBC (Bld) 0.1 % Normal 0.0-2.5 [facility] MAIN Comment on above: Performed By: #### M DW, LIP, ANEU, GFR, ADIFF, CMP, CBC #### [address] [address] Eosinophil, Absolute 0.0 10 3/mcL Normal 0.0-0.7 [facility] MAIN Comment on above: Performed By: #### M DW, LIP, ANEU, GFR, ADIFF, CMP, CBC #### [address] [address] Eosinophils/100 WBC (Bld) 0.2 % Normal 0.0-6.0 [facility] MAIN Comment on above: Performed By: #### M DW, LIP, ANEU, GFR, ADIFF, CMP, CBC #### [address] [address] Lymphocyte, Absolute 0.5 10 3/mcL Low 0.9-4.3 [facility] MAIN Comment on above: Performed By: #### M DW, LIP, ANEU, GFR, ADIFF, CMP, CBC #### [address] [address] Lymphocytes/100 WBC (Bld) 2.8 % Low 20.0-40.0 [facility] MAIN Comment on above: Performed By: #### M DW, LIP, ANEU, GFR, ADIFF, CMP, CBC #### [address] [address] Monocyte, Absolute 0.7 10 3/mcL Normal 0.1-1.4 [facility] MA[facility] Comment on above: Performed By: #### M DW, LIP, ANEU, GFR, ADIFF, CMP, CBC #### [address] [address] Monocytes/100 WBC (Bld) 3.8 % Normal 2.0-13.0 [facility] MAIN Comment on above: Performed By: #### M DW, LIP, ANEU, GFR, ADIFF, CMP, CBC #### [address] [address] Neutrophils/100 WBC (Bld) 93.1 % High 50.0-75.0 [facility] MAIN Comment on above: Performed By: #### M DW, LIP, ANEU, GFR, ADIFF, CMP, CBC #### [address] [address] .GFRon 10-30-2024 GFR/1.73 sq M.predicted ilya g non-blacks MDRD (S/P/Bld) [Vol rate/Area] mL/min/{1.73_m2} Normal [facility] MAIN Comment on above: Result Comment: Stages of Chronic Kidney Disease (CKD) Stage Description eGFR(ml/min/1.73 sq.m.) CKD 1 Normal kidney function or >=90 normal kindney function with possible kidney damage (ex. Proteinuria) CKD 2 Kidney damage with mild loss 60-89 of kidney function CKD 3a Mild to moderate loss of kidney 45-59 function CKD 3b Moderate to severe loss of 30-44 of kindey function CKD 4 Severe loss of kidney function 15-29 CKD 5 Kidney failure <15 Note: (go live 2024) the eGFR calculation was updated to the 2020 CKD-EPI creatinine equation without a race factor to calculate the eGFR results. Performed By: #### M DW, LIP, ANEU, GFR, ADIFF, CMP, CBC #### [address] [address] .MDWon 10-30-2024 Monocyte Distribution Width 16.44 Normal 0.00-20. 00 [facility] MAIN Comment on above: Result Comment: For ED adult patients suspected of sepsis, MDW<=20.0 does not rule out sepsis or risk of sepsis Performed By: #### M DW, LIP, ANEU, GFR, ADIFF, CMP, CBC #### [address] [address] .NEUABSon 10-30-2024 Neutrophil, Absolute 17.0 10 3/mcL High 2.3-8.1 [facility] MAIN Comment on above: Performed By: #### M DW, LIP, ANEU, GFR, ADIFF, CMP, CBC #### [place] [address] CBCon 10-30-2024 Erythrocyte distribution wid th (RBC) [Ratio] 14.2 % Normal 11.5-15.5 [facility] MAIN Comment on above: Performed By: #### M DW, LIP, ANEU, GFR, ADIFF, CMP, CBC #### [place] [address] Hematocrit (Bld) [Volume fraction] 39.6 % Normal 34.0-46.0 [facility] MAIN Comment on above: Performed By: #### M DW, LIP, ANEU, GFR, ADIFF, CMP, CBC #### [place] [address] Hgb 13.4 G/dL Normal 12.0-16.0 [facility] MAIN Comment on above: Performed By: #### M DW, LIP, ANEU, GFR, ADIFF, CMP, CBC #### [place] [address] MCH (RBC) [Entitic mass] 31.1 pg Normal 27.0-33.0 [facility] MAIN Comment on above: Performed By: #### M DW, LIP, ANEU, GFR, ADIFF, CMP, CBC #### [place] [address] MCHC 33.9 G/dL Normal 32.0-36.0 [facility] MAIN Comment on above: Performed By: #### M DW, LIP, ANEU, GFR, ADIFF, CMP, CBC #### [place] [address] MCV (RBC) [Entitic vol] 92.0 fL Normal 80.0-99.0 [facility] MAIN Comment on above: Performed By: #### M DW, LIP, ANEU, GFR, ADIFF, CMP, CBC #### [place] [address] Platelet 189 10 3/mcL Normal 150-450 [facility] MA[facility] Comment on above: Performed By: #### M DW, LIP, ANEU, GFR, ADIFF, CMP, CBC #### [place] [address] Platelet mean volume (Bld) [Entitic vol] 8.6 fL Normal 6.6-10.5 [facility] MA[facility] Comment on above: Performed By: #### M DW, LIP, ANEU, GFR, ADIFF, CMP, CBC #### [place] [address] RBC 4.30 10 6/mcL Normal 4.10-5.30 [facility] MA[facility] Comment on above: Performed By: #### M DW, LIP, ANEU, GFR, ADIFF, CMP, CBC #### [place] [address] WBC 18.2 10 3/mcL High 4.5-10.8 [facility] Comment on above: Performed By: #### M DW, LIP, ANEU, GFR, ADIFF, CMP, CBC #### [place] [address] CMPon 10-30-2024 Albumin Level 3.1 G/dL Low 3.2-4.8 [facility] MA[facility] Comment on above: Performed By: #### M DW, LIP, ANEU, GFR, ADIFF, CMP, CBC #### [place] [address] Albumin/Globulin [Mass ratio] 0.9 {ratio} Normal 0.9-1 .6 [facility] MA[facility] Comment on above: Performed By: #### M DW, LIP, ANEU, GFR, ADIFF, CMP, CBC #### [place] [address] ALP [Catalytic activity/Vol] 58 U/L Normal 38-126 [facility] MA[facility] Comment on above: Performed By: #### M DW, LIP, ANEU, GFR, ADIFF, CMP, CBC #### [place] [address] ALT [Catalytic activity/Vol] 16 U/L Normal 10-49 [facility] MA[facility] Comment on above: Performed By: #### M DW, LIP, ANEU, GFR, ADIFF, CMP, CBC #### [address] [address] AST [Catalytic activity/Vol] 18 U/L Normal 8-34 [facility] MA[facility] Comment on above: Performed By: #### M DW, LIP, ANEU, GFR, ADIFF, CMP, CBC #### [address] [address] Bili Total 0.50 mg/dL Normal 0.20-1.20 [facility] MA[facility] Comment on above: Result Comment: Use of this assay is not recommended for patients undergoing treatment with eltrombopag due to the potential for falsely elevated results. Performed By: #### M DW, LIP, ANEU, GFR, ADIFF, CMP, CBC #### [place] [id number] BUN/Creatinine Ratio 16.3 ratio Normal 10.0-22.0 [facility] MA[facility] Comment on above: Performed By: #### M DW, LIP, ANEU, GFR, ADIFF, CMP, CBC #### [place] [id number] Calcium [Mass/Vol] 8.7 mg/dL Normal 8.7-10.4 [facility] MAIN Comment on above: Performed By: #### M DW, LIP, ANEU, GFR, ADIFF, CMP, CBC #### [address] [address] Chloride [Moles/Vol] 107 mmol/L Normal 98-110 [facility] MA[facility] Comment on above: Performed By: #### M DW, LIP, ANEU, GFR, ADIFF, CMP, CBC #### [address] [address] CO2 [Moles/Vol] 23 mmol/L Normal 22-32 [facility] MA[facility] Comment on above: Performed By: #### M DW, LIP, ANEU, GFR, ADIFF, CMP, CBC #### [address] [address] Creatinine [Mass/Vol] 0.49 mg/dL Low 0.50-1.20 [facility] MAIN Comment on above: Result Comment: Test ing performed on [employer] analyzer using enzymatic creatinine methodology. Performed By: #### M DW, LIP, ANEU, GFR, ADIFF, CMP, CBC #### [address] [address] Electrolyte Balance 9.0 mEq/L Normal 4.0-15.0 [facility] MAIN Comment on above: Performed By: #### M DW, LIP, ANEU, GFR, ADIFF, CMP, CBC #### [address] [address] Globulin 3.4 G/dL Normal 2.5-4.2 [facility] Comment on above: Performed By: #### M DW, LIP, ANEU, GFR, ADIFF, CMP, CBC #### [address] [address] Glucose [Mass/Vol] 107 mg/dL Normal 70-110 [facility] MAIN Comment on above: Performed By: #### M DW, LIP, ANEU, GFR, ADIFF, CMP, CBC #### [place] [id number] Potassium [Moles/Vol] 3.4 mmol/L Low 3.5-5.0 [facility] MAIN Comment on above: Performed By: #### M DW, LIP, ANEU, GFR, ADIFF, CMP, CBC #### [address] [address] Sodium [Moles/Vol] 139 mmol/L Normal 136-145 [facility] MAIN Comment on above: Performed By: #### M DW, LIP, ANEU, GFR, ADIFF, CMP, CBC #### [address] [address] Total Protein 6.5 G/dL Normal 5.7-8.2 [facility] MA[facility] Comment on above: Performed By: #### M DW, LIP, ANEU, GFR, ADIFF, CMP, CBC #### [address] [address] Urea nitrogen [Mass/Vol] 8.0 mg/dL Normal 8.0-22.0 [facility] MA[facility] Comment on above: Performed By: #### M DW, LIP, ANEU, GFR, ADIFF, CMP, CBC #### [address] [address] LABORATORYOrdered By: Sandy Gutierrez on 10-30-2024 Bilirubin Urine Dipstick 1+ Small (Abnormal) (10/30/24 2:57 PM) [facility] Work Phone: Blood Urine Dipstick Negative (10/30/24 2:57 PM) [facility] Work Phone: Glucose Urine Dipstick Negative (10/30/24 2:57 PM) [facility] Work Phone: Ketones Urine Dipstick 4+ (160 mg/dl) (Abnormal) (10/30/24 2:57 PM) [facility] Work Phone: Leukocytes Urine Dipstick Negative (10/30/24 2:57 PM) [facility] Work Phone: Nitrite Urine Dipstick Negative (10/30/24 2:57 PM) [facility] Work Phone: pH Urine Dipstick 6 (10/30/24 2:57 PM) [facility] Work Phone: Protein Urine Dipstick 1+ (30mg/dl) (Abnormal) (10/30/24 2:57 PM) [facility] Work Phone: Specific Dunning Urine Dipstick >=1.030 (10/30/24 2:57 PM) [facility] Work Phone: Urobilinogen Urine Dipstick 0.2 mg/dl (10/30/24 2:57 PM) [facility] Work Phone: LABORATORYOrdered By: SYSTEM SYSTEM on 10-30-2024 Albumin BCP dye [Mass/Vol] 3.1 G/dL Low 3 .2 - 4.8 G/dL ADM SS Albumin/Globulin [Mass ratio] 0.9 {ratio} Normal 0.9 - 1.6 ratio ADM SS ALP [Catalytic activity/Vol] 58 U/L Normal 38 - 12 6 U/L ADM SS ALT No additional P-5'-P [Catalytic activity/Vol] 16 U/L Normal 10 - 49 U/L AH ADM SS AST [Catalytic activity/Vol] 18 U/L Normal 8 - 34 U/L AH ADM SS Basophils (Bld) [#/Vol] 0.0 103/mcL Normal 0.0 - 0.3 10^3/mcL Workflow SS Basophils/100 WBC (Bld) 0.1 % Normal 0.0 - 2.5 % Workflow SS Bilirubin [Mass/Vol] 0.50 mg/dL Normal 0.20 - 1.20 mg/dL ADM SS Comment on above: Interpretive Data: U se of this assay is not recommended for patients undergoing treatment with eltrombopag due to the potential for falsely elevated results. Calcium [Mass/Vol] 8.7 mg/dL Normal 8.7 - 10. 4 mg/dL ADM SS Chloride [Moles/Vol] 107 mmol/L Normal 98 - 11 0 mEq/L ADM SS CO2 [Moles/Vol] 23 mmol/L Normal 22 - 32 mEq/L ADM SS Creatinine [Mass/Vol] 0.49 mg/dL Low 0.50 - 1.20 mg/dL ADM SS Comment on above: Interpretive Data: T esting performed on [employer] analyzer using enzymatic creatinine methodology. Electrolyte Balance 9.0 mEq/L Normal 4.0 - 15 .0 mEq/L ADM SS Eosinophils (Bld) [#/Vol] 0.0 103/mcL Normal 0. 0 - 0.7 10^3/mcL Workflow SS Eosinophils/100 WBC (Bld) 0.2 % Normal 0.0 - 6.0 % Workflow SS Erythrocyte distribution wid th (RBC) [Ratio] 14.2 % Normal 11.5 - 15.5 % Workflow SS Estimated Glomerular Filtration Rate ml/min/1.73sqm Invalid Interpretation Code ADM SS Comment on above: Interpretive Data: Stages of Chronic Kidney Disease (CKD) Stage Description eGFR(ml/min/1.73 sq.m.) CKD 1 Normal kidney function or >=90 normal kindney function with possible kidney damage (ex. Proteinuria) CKD 2 Kidney damage with mild loss 60-89 of kidney function CKD 3a Mild to moderate loss of kidney 45-59 function CKD 3b Moderate to severe loss of 30-44 of kindey function CKD 4 Severe loss of kidney function 15-29 CKD 5 Kidney failure <15 Note: (go live 2024) the eGFR calculation was updated to the 2020 CKD-EPI creatinine equation without a race factor to calculate the eGFR results. Globulin 3.4 G/dL Normal 2.5 - 4.2 G/dL AH ADM SS Glucose [Mass/Vol] 107 mg/dL Normal 70 - 110 mg/dL AH ADM SS Hematocrit (Bld) [Volume fraction] 39.6 % Normal 34.0 - 46.0 % AH Workflow SS Hemoglobin (Bld) [Mass/Vol] 13.4 G/dL Normal 12.0 - 16.0 G/dL AH Workflow SS Lipase [Catalytic activity/Vol] 32 U/L Normal 12 - 53 U/L AH ADM SS Lymphocytes (Bld) [#/Vol] 0.5 103/mcL Low 0. 9 - 4.3 10^3/mcL AH Workflow SS Lymphocytes/100 WBC (Bld) 2.8 % Low 20 .0 - 40.0 % AH Workflow SS MCH (RBC) [Entitic mass] 31.1 pg Normal 27. 0 - 33.0 pg AH Workflow SS MCHC 33.9 G/dL Normal 32.0 - 36.0 G/dL AH Workflow SS MCV (RBC) [Entitic vol] 92.0 fL Normal 80.0 - 99.0 fL AH Workflow SS Monocyte distribution width Auto (Bld) [Entitic vol] 16.44 1 Normal 0.00 - 20.00 AH Work flow SS Comment on above: Result Comment: For ED adult patients suspected of sepsis, MDW<=20.0 does not rule out sepsis or risk of sepsis Monocytes (Bld) [#/Vol] 0.7 103/mcL Normal 0.1 - 1.4 10^3/mcL AH Workflow SS Monocytes/100 WBC (Bld) 3.8 % Normal 2.0 - 13.0 % AH Workflow SS Neutrophils (Bld) [#/Vol] 17.0 103/mcL High 2. 3 - 8.1 10^3/mcL AH Workflow SS Neutrophils/100 WBC (Bld) 93.1 % High 50 .0 - 75.0 % AH Workflow SS Platelet mean volume (Bld) [Entitic vol] 8.6 fL Normal 6.6 - 10.5 fL AH Workflow SS Platelets (Bld) [#/Vol] 189 103/mcL Normal 150 - 450 10^3/mcL AH Workflow SS Potassium [Moles/Vol] 3.4 mmol/L Low 3.5 - 5.0 mEq/L AH ADM SS Protein [Mass/Vol] 6.5 G/dL Normal 5.7 - 8.2 G/dL AH ADM SS RBC (Bld) [#/Vol] 4.30 106/mcL Normal 4.10 - 5.3 0 10^6/mcL AH Workflow SS Sodium [Moles/Vol] 139 mmol/L Normal 136 - 145 mEq/L AH ADM SS Urea nitrogen [Mass/Vol] 8.0 mg/dL Normal 8.0 - 22.0 mg/dL AH ADM SS Urea nitrogen/Creatinine [Ma ss ratio] 16.3 ratio Normal 10.0 - 22.0 ratio AH ADM SS WBC (Bld) [#/Vol] 18.2 103/mcL High 4.5 - 10.8 10^3/mcL AH Workflow SS LIPon 10-30-2024 Lipase Level 32 U/L Normal 12-53 [facility] MAIN Comment on above: Performed By: #### M DW, LIP, ANEU, GFR, ADIFF, CMP, CBC #### [place] [address] Laboratory - Chemistry and C hemistry - challengeOrdered By: Tiffanie Osorio on 10-20-2024 Glucose Ql (U) Negative [facility] - UrinalysisOrder ed By: Tiffanie Osorio on 10-20-2024 Protein Ql (U) Negative [facility] Chief Inspector Office Visit Reporton 10-20-2024 Chief Inspector Office Visit Report [facility] [address], [address] [place] [address] OFFICE VISIT Date of Service: 10/20/24 MR#: [id number] Acct: [id number] Name: RADHA DOUGLAS Antonette Rep #: [id number] : 1995 Provider: Dr. Tiffanie rahman MD Age/Sex: 29/F Location: [facility] Status: Signed Intake Vital Signs 08/18/24 13:43 09/21/24 13:59 10/20/24 14:17 Height 5 ft 8 in 5 ft 8 in 5 ft 8 in Weight: 193 lb 8 oz BMI 29.4 BP 107/61 Intake Visit Reasons: 18wk ob Clerk To Justice Required: No Is patient in pain?: No Feel stressed/tense/ne rvous/anxious/dif ficulty sleeping: not at all Allergies No Known Allergies Allergy (Unverified 10/20/24 14:18) Medications ???Medication ???Instructions ???Recorded ???Confirmed ???Type multivitamin no.47-iron fum 27 cap PO 08/04/24 10/20/24 History mg-folate no.1 1 mg-dha 300 mg capsule (PNV-DHA) pyridoxine (vitamin B6) 10 mg 10 mg PO TID 08/04/24 10/20/24 His tory tablet Last Menstrual Period: 06/07/24 Zika: Zika virus screening: Negative : No PFSH PFSH Medical History Seasonal allergies Family History Mother Cancer, Onset Age: 19 cervical Breast cancer, Onset Age: 35 Grandmother Diabetes Maternal Type 1 Social History adopted: No household members: spouse and children housing: house number of children: 1 current occupational status: employed 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 pets and animals: Yes pets and animals: dog(s) history of recent travel: No sexually active: Yes Smoking Status: Never smoker alcohol intake: never substance use type: does not use well-balanced diet: daily or most days caffeine: No eating out: 1-3 times/week during the past year weight has: remained stable what type of physical activity do you participate in: none critsobal/mormon: Yarsanism seatbelt use: always do you feel safe at home: Yes additional social history: Julio History 2 Elective abortions Hx Para 1 Spontaneous abortions Hx # Term Pregnancies Ectopic pregnancies Hx # Pregnancies Multiple births # of living children 1 Past Pregnancies Del. Date Name GA/Weeks Outcome Route Bth Weight Infant Gen Labor Lgth Anesthesia Del Locatn Provider FOB 12/15/20 [facility] 37 live - full term 7#8oz Male epidural Mónica Kim HPI 18wk ob Details: RADHA DOUGLAS is a 29 year old who presents for routine OB visit. OB Visit DIANDRA Calculator Estimated Delivery Date Method Current WG Current Estimate 03/14/25 LMP (Certain) 19w 2d Other Estimates 03/20/25 Ultrasound #1 18w 3d Expected Delivery Route/Plan Labor Preferences- CB/BF classes: [] labor support person: [] labor intervention preferences: [] pain management options preferred: [] cut cord/dad catch: [] : [] PP control planned: [] discussed possible routes of delivery and associated risks: [] special requests: [] Specific Issue/Plans Covid status: [] Flu vaccine: [] Tdap vaccine: [] Rhogam: [] LARC form signed: [] Problem list reviewed and updated with the most current plan of care details and appropriate orders placed. Relevant counseling for the gestational age provided. Continue routine care and follow up unless otherwise noted in visit notes/problem list details Initial Weight: 195 lb Date -???-???-???-???- ???-???-???-???-? ??-???-???-???- EGA Weight BP Urine Prot -???-???-???-???- ???-???-???-???-? ??-???-???-???- Glucose FHR FuHt Pres Dilation -???-???-???-???- ???-???-???-???-? ??-???-???-???- Effaced St Visit Note 08/18/24 -???-???-???-???- ???-???-???-???-? ??-???-???-???- 10w 2d 195 lb 6 oz (+6 oz) 122/57 -???-???-???-???- ???-???-???-???-? ??-???-???-???- 178 -???-???-???-???- ???-???-???-???-? ??-???-???-???- KW- CRL 2.63 cm. measuring 9.3 weeks. Declines NIPT. 09/21/24 -???-???-???-???- ???-???-???-???-? ??-???-???-???- 15w 1d 191 lb 6 oz (-3 lb 10 oz) 122/73 Negative -???-???-???-???- ???-???-???-???-? ??-???-???-???- Negative 145 -???-???-???-???- ???-???-???-???-? ??-???-???-???- JV- no cramp ing or spotting. has the complaint of shortness of breath at times. has some air hunger of complaints. 10/20/24 -???-???-???-???- ???-???-???-???-? ??-???-???-???- 19w 2d 193 lb 8 oz (-1 lb 8 oz) 107/61 Negative -???-???-???-???- ???-???-???-???-? ??-???-???-???- Negative 145 -???-???-???-???- ???-???-???-???-? ??-???-???-???- Sm- no vb cr amping ACOG First Trimester First Trimester: Desire for , Alcohol, Tobacco Cessation, Illicit/Recreatio nal (more content not included)... Normal [facility] - Chemistry and C hemistry - challengeOrdered By: Kelsea Conrad on 09-21-2024 Glucose Ql (U) Negative [facility] - UrinalysisOrder ed By: Kelsea Conrad on 09-21-2024 Protein Ql (U) Negative [facility] Chief Inspector Office Visit Reporton 09-21-2024 Chief Inspector Office Visit Report [facility]'s [address], [address] [place] [address] OFFICE VISIT Date of Service: 09/21/24 MR#: [id number] Acct: [id number] Name: RADHA DOUGLAS Rep #: [id number] : 1995 Provider: Dr. Kelsea Matthews DO Age/Sex: 28/F Location: [facility] Status: Signed Intake Vital Signs 08/18/24 13:43 09/21/24 13:59 Height 5 ft 8 in 5 ft 8 in Weight: 191 lb 6 oz BMI 29.0 BP 122/73 H Intake Visit Reasons: 14wk OB Chief Complaint: 14 Week OB Clerk To Justice Required: No Is patient in pain?: No Allergies No Known Allergies Allergy (Unverified 09/21/24 14:01) Medications ???Medication ???Instructions ???Recorded ???Confirmed ???Type multivitamin no.47-iron fum 27 cap PO 08/04/24 09/21/24 History mg-folate no.1 1 mg-dha 300 mg capsule (PNV-DHA) pyridoxine (vitamin B6) 10 mg 10 mg PO TID 08/04/24 09/21/24 His tory tablet Last Menstrual Period: 06/07/24 Zika: Zika virus screening: Negative : No PFSH PFSH Medical History Seasonal allergies Family History Mother Cancer, Onset Age: 19 cervical Breast cancer, Onset Age: 35 Grandmother Diabetes Maternal Type 1 Social History adopted: No household members: spouse and children housing: house number of children: 1 current occupational status: employed 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 pets and animals: Yes pets and animals: dog(s) history of recent travel: No sexually active: Yes Smoking Status: Never smoker alcohol intake: never substance use type: does not use well-balanced diet: daily or most days caffeine: No eating out: 1-3 times/week during the past year weight has: remained stable what type of physical activity do you participate in: none cristobal/mormon: Yarsanism seatbelt use: always do you feel safe at home: Yes additional social history: Julio History 2 Elective abortions Hx Para 1 Spontaneous abortions Hx # Term Pregnancies Ectopic pregnancies Hx # Pregnancies Multiple births # of living children 1 Past Pregnancies Del. Date Name GA/Weeks Outcome Route Bth Weight Infant Gen Labor Lgth Anesthesia Del Locatn Provider FOB 12/15/20 [facility] 37 live - full term 7#8oz Male epidural Mónica Hart noemy Kim HPI 14wk OB Details: RADHA DOUGLAS is a 28 year old who presents for routine OB visit. OB Visit DIANDRA Calculator Estimated Delivery Date Method Current WG Current Estimate 03/14/25 LMP (Certain) 15w 1d Other Estimates 03/20/25 Ultrasound #1 14w 2d Expected Delivery Route/Plan Labor Preferences- CB/BF classes: [] labor support person: [] labor intervention preferences: [] pain management options preferred: [] cut cord/dad catch: [] : [] PP control planned: [] discussed possible routes of delivery and associated risks: [] special requests: [] Specific Issue/Plans Covid status: [] Flu vaccine: [] Tdap vaccine: [] Rhogam: [] LARC form signed: [] Problem list reviewed and updated with the most current plan of care details and appropriate orders placed. Relevant counseling for the gestational age provided. Continue routine care and follow up unless otherwise noted in visit notes/problem list details Initial Weight: 195 lb Date -???-???-???-???- ???-???-???-???-? ??-???-???-???- EGA Weight BP Urine Prot -???-???-???-???- ???-???-???-???-? ??-???-???-???- Glucose FHR FuHt Pres Dilation -???-???-???-???- ???-???-???-???-? ??-???-???-???- Effaced St Visit Note 08/18/24 -???-???-???-???- ???-???-???-???-? ??-???-???-???- 10w 2d 195 lb 6 oz (+6 oz) 122/57 -???-???-???-???- ???-???-???-???-? ??-???-???-???- 178 -???-???-???-???- ???-???-???-???-? ??-???-???-???- KW- CRL 2.63 cm. measuring 9.3 weeks. Declines NIPT. 09/21/24 -???-???-???-???- ???-???-???-???-? ??-???-???-???- 15w 1d 191 lb 6 oz (-3 lb 10 oz) 122/73 Negative -???-???-???-???- ???-???-???-???-? ??-???-???-???- Negative 145 -???-???-???-???- ???-???-???-???-? ??-???-???-???- JV- no cramp ing or spotting. has the complaint of shortness of breath at times. has some air hunger of complaints. ACOG First Trimester First Trimester: Desire for , Alcohol, Tobacco Cessation, Illicit/Recreatio nal Drug/Substance Use, Intimate Partner Violence, Barriers to care, Anticipated Course of Care, Use of Any medications, Sexual activity, Exercise, Dental Care, Sauna/Hot tub use, Seat Belt use, Childbirth classes/Hospital facilities, Travel, Indications for Ultrasound and Screening for Aneuploidy; (more content not included)... Normal [facility] PAP I-G w/rfx hrHPV-Aptimaon 08-24-2024 ADEQ Comment Normal . [facility] Comment on above: Order Comment: Speci men Comment: [id number] Comment: Source.............CervixSpecimen Comment: LMP / Prev Treat...[id number] Comment: No. of containers..01 ThinPrep Vial Result Comment: Sati sfactory for evaluation. Endocervical and/or squamous metaplastic cells (endocervical component) are present. Performed By: #### B TS, L501.9985, L3890.6006, L100.0100, L509.8002, L509.4006, L3890.6102, L3890.6301 #### [facility] [address] [place], [place], [id number] COMM . Normal . [facility] Comment on above: Order Comment: Speci men Comment: [id number] Comment: Source.............CervixSpecimen Comment: LMP / Prev Treat...[id number] Comment: No. of containers..01 ThinPrep Vial Performed By: #### B TS, L501.9985, L3890.6006, L100.0100, L509.8002, L509.4006, L3890.6102, L3890.6301 #### [facility] [address] [place], [place], [id number] COMMENT Comment Normal . [facility] Comment on above: Order Comment: Speci men Comment: [id number] Comment: Source.............CervixSpecimen Comment: LMP / Prev Treat...[id number] Comment: No. of containers..01 ThinPrep Vial Result Comment: This liquid based ThinPrep(R) pap test was screened with the use of an image guided system. Performed By: #### B TS, L501.9985, L3890.6006, L100.0100, L509.8002, L509.4006, L3890.6102, L3890.6301 #### [facility] [address] [place], [place], [id number] DIAG Comment Normal . [facility] Comment on above: Order Comment: Speci men Comment: [id number] Comment: Source.............CervixSpecimen Comment: LMP / Prev Treat...[id number] Comment: No. of containers..01 ThinPrep Vial Result Comment: NEGA TIVE FOR INTRAEPITHELIAL LESION OR MALIGNANCY. Performed By: #### B TS, L501.9985, L3890.6006, L100.0100, L509.8002, L509.4006, L3890.6102, L3890.6301 #### [facility] [address] [place], [place], [id number] HPV RFLX Comment Normal . [facility] Comment on above: Order Comment: Speci men Comment: [id number] Comment: Source.............CervixSpecimen Comment: LMP / Prev Treat...[id number] Comment: No. of containers..01 ThinPrep Vial Result Comment: The HPV DNA reflex criteria were not met with this specimen result therefore, no HPV testing was performed. Performed at: [address] [id number] Newspaper Delivery Driver: Sonam Leon MD, Phone: [phone] Performed at: [address] [id number] Newspaper Delivery Driver: Kyra Anderson MD, Phone: [phone] Performed By: #### B TS, L501.9985, L3890.6006, L100.0100, L509.8002, L509.4006, L3890.6102, L3890.6301 #### [facility] [address] [place], [place], [id number] PAPSMR Comment Normal . [facility] Comment on above: Order Comment: Speci men Comment: [id number] Comment: Source.............CervixSpecimen Comment: LMP / Prev Treat...[id number] Comment: No. of containers..01 ThinPrep Vial Result Comment: The Pap smear is a screening test designed to aid in the detection of premalignant and malignant conditions of the uterine cervix. It is not a diagnostic procedure and should not be used as the sole means of detecting cervical cancer. Both false-positive and false-negative reports do occur. Performed By: #### B TS, L501.9985, L3890.6006, L100.0100, L509.8002, L509.4006, L3890.6102, L3890.6301 #### [facility] [address] [place], [place], [address] PERFORM Comment Normal . [facility] Comment on above: Order Comment: Speci men Comment: [id number] Comment: Source.............CervixSpecimen Comment: LMP / Prev Treat...[id number] Comment: No. of containers..01 ThinPrep Vial Result Comment: Denisse Marino, Plan Manager (ASCP) Performed By: #### B TS, L501.9985, L3890.6006, L100.0100, L509.8002, L509.4006, L3890.6102, L3890.6301 #### [facility] [address] [place], [place], [address] Chlamydia/GC SHANTE aptimaon CHLAMY,NUC ACID Negative Normal Negative [facility] Comment on above: Performed By: #### B TS, L501.9985, L3890.6006, L100.0100, L509.8002, L509.4006, L3890.6102, L3890.6301 #### [facility] [address] [place], [address] GC BY NUC ACID Negative Normal Negative [facility] Comment on above: Result Comment: Perf ormed at: =G - [facility] [address] [id number] Newspaper Delivery Driver: Kyra Anderson MD, Phone: [phone] Performed By: #### B TS, L501.9985, L3890.6006, L100.0100, L509.8002, L509.4006, L3890.6102, L3890.6301 #### [facility] [address] [place], [address] Urine Cultureon 08-20-2024 URC Mixed Gram Positive Organisms [place] Count 50,000-80,000 MIXC Mixed contaminants. Submit a new specimen if indicated. Normal [facility] Comment on above: Performed By: #### M 100.2200, L7400.0353, L7000.1800 #### [facility] [address] [place], [address] Absolute lymphocyte countOrd ered By: Amy Meyers on 08-18-2024 Lymphocytes Auto (Unsp spec) [#/Vol] 2.17 10*3/uL 0.83-4.51 [facility] Absolute neutrophil countOrd ered By: Amy Meyers on 08-18-2024 Neutrophils (Bld) [#/Vol] 7.0 10*3/uL 2.0-7.7 [facility] Automated lymphocyte count a s percentage of total leukocytesOrdered By: Amy Meyers on 08-18-2024 Lymphocytes/100 WBC Auto (Un sp spec) 21.6 % 19-41 [facility] Basophil percentageOrdered B y: Amy Meyers on 08-18-2024 Basophils/100 WBC (Bld) 0.5 % 0-1 [facility] C. trachomatis rRNA SHANTE+prob e Ql (Unsp spec)Ordered By: Amy Meyers on 08-18-2024 Chlamydia DNA (SHANTE) Negative Negative [facility] CBC W/Diff, Automatedon 08-05 Absolute Lymph 2.17 X10 3/uL Normal 0.83-4.51 [facility] Comment on above: Performed By: #### B TS, L501.9985, L3890.6006, L100.0100, L509.8002, L509.4006, L3890.6102, L3890.6301 #### [facility] [address] [place], [address] Absolute Neut 7.0 X10 3/uL Normal 2.0-7.7 [facility] Comment on above: Performed By: #### B TS, L501.9985, L3890.6006, L100.0100, L509.8002, L509.4006, L3890.6102, L3890.6301 #### [facility] [address] [place], [address] Basophils/100 WBC (Bld) 0.5 % Normal 0-1 [facility] Comment on above: Performed By: #### B TS, L501.9985, L3890.6006, L100.0100, L509.8002, L509.4006, L3890.6102, L3890.6301 #### [facility] [address] [place], [address] Eosinophils/100 WBC (Bld) 0.7 % Normal 0-5 [facility] Comment on above: Performed By: #### B TS, L501.9985, L3890.6006, L100.0100, L509.8002, L509.4006, L3890.6102, L3890.6301 #### [facility] [address] [place], [address] Erythrocyte distribution wid th (RBC) [Ratio] 13.2 % Normal 11.6-14.6 [facility] Comment on above: Performed By: #### B TS, L501.9985, L3890.6006, L100.0100, L509.8002, L509.4006, L3890.6102, L3890.6301 #### [facility] [address] [place], [address] Hematocrit (Bld) [Volume fraction] 41.0 % Normal 37-47 [facility] Comment on above: Performed By: #### B TS, L501.9985, L3890.6006, L100.0100, L509.8002, L509.4006, L3890.6102, L3890.6301 #### [facility] [address] [place], [address] Hemoglobin (Bld) [Mass/Vol] 14.1 g/dL Normal 12.0-15. 0 [facility] Comment on above: Performed By: #### B TS, L501.9985, L3890.6006, L100.0100, L509.8002, L509.4006, L3890.6102, L3890.6301 #### [facility] [address] [place], [address] IG% 0.200 Normal 0.0-0.9 [facility] Comment on above: Result Comment: IG% - Immature Granulocytes (promyelocytes, myelocytes and metamyelocytes) > 1% indicates that a LEFT SHIFT is Present. Performed By: #### B TS, L501.9985, L3890.6006, L100.0100, L509.8002, L509.4006, L3890.6102, L3890.6301 #### [facility] [address] [place], [address] Lymphocytes/100 WBC (Bld) 21.6 % Normal 19-41 [facility] Comment on above: Performed By: #### B TS, L501.9985, L3890.6006, L100.0100, L509.8002, L509.4006, L3890.6102, L3890.6301 #### [facility] [address] [place], [address] MCH (RBC) [Entitic mass] 31.3 pg Normal 27.0-32.0 [facility] Comment on above: Performed By: #### B TS, L501.9985, L3890.6006, L100.0100, L509.8002, L509.4006, L3890.6102, L3890.6301 #### [facility] [address] [place], [address] MCHC (RBC) [Mass/Vol] 34.4 g/dL Normal 32-36 [facility] Comment on above: Performed By: #### B TS, L501.9985, L3890.6006, L100.0100, L509.8002, L509.4006, L3890.6102, L3890.6301 #### [facility] [address] [place], [address] MCV (RBC) [Entitic vol] 91.1 fL Normal 81-99 [facility] Comment on above: Performed By: #### B TS, L501.9985, L3890.6006, L100.0100, L509.8002, L509.4006, L3890.6102, L3890.6301 #### [facility] [address] [place], [address] Monocytes/100 WBC (Bld) 7.2 % Normal 0-10 [facility] Comment on above: Performed By: #### B TS, L501.9985, L3890.6006, L100.0100, L509.8002, L509.4006, L3890.6102, L3890.6301 #### [facility] [address] [place], [address] Neutrophils/100 WBC (Bld) 69.8 % Normal 47-70 [facility] Comment on above: Performed By: #### B TS, L501.9985, L3890.6006, L100.0100, L509.8002, L509.4006, L3890.6102, L3890.6301 #### [facility] [address] [place], [address] Nucleated RBC (Bld) [#/Vol] 0 10*3/uL Normal 0-5 [facility] Comment on above: Performed By: #### B TS, L501.9985, L3890.6006, L100.0100, L509.8002, L509.4006, L3890.6102, L3890.6301 #### [facility] [address] [place], [address] Platelet mean volume (Bld) [Entitic vol] 10.5 fL Normal 6.2-12.0 [facility] Comment on above: Performed By: #### B TS, L501.9985, L3890.6006, L100.0100, L509.8002, L509.4006, L3890.6102, L3890.6301 #### [facility] [address] [place], [address] Platelets (Bld) [#/Vol] 249 10*3/uL Normal 150-450 [facility] Comment on above: Performed By: #### B TS, L501.9985, L3890.6006, L100.0100, L509.8002, L509.4006, L3890.6102, L3890.6301 #### [facility] [address] [place], [address] RBC (Bld) [#/Vol] 4.50 10*6/uL Normal 4.2-5.4 [facility] Comment on above: Performed By: #### B TS, L501.9985, L3890.6006, L100.0100, L509.8002, L509.4006, L3890.6102, L3890.6301 #### [facility] [address] [place], [address] RDW SD 43.5 fl Normal 35.1-43.9 [facility] Comment on above: Performed By: #### B TS, L501.9985, L3890.6006, L100.0100, L509.8002, L509.4006, L3890.6102, L3890.6301 #### [facility] [address] [place], [address] WBC (Bld) [#/Vol] 10.1 10*3/uL Normal 4.4-11.0 [facility] Comment on above: Performed By: #### B TS, L501.9985, L3890.6006, L100.0100, L509.8002, L509.4006, L3890.6102, L3890.6301 #### [facility] [address] [place], [address] Cervical or vagninal specime n microscopic examination by cytology stain (reported asOrdered By: Amy Meyers on 08-18-2024 Cytology report Cyto stain D oc (Cvx/Vag) Comment . [facility] Comment on above: The Pap smear is a s creening test designed to aid in thedetection of premalignant and malignant conditions of theuterine cervix. It is not a diagnostic procedure andshould not be used as the sole means of detecting cervicalcancer. Both false-positive and false-negative reports dooccur. Chlamydia trachomatis rRNA d etection by probe and target amplification methodOrdered By: Amy Meyers on 08-18-2024 C. trachomatis rRNA SHANTE+prob e Ql (Unsp spec) Negative Negative [facility] Mandarin Chinese Teacher Cyto stain Nom (C vx/Vag) [ID]Ordered By: Amy Meyers on 08-18-2024 Pap Smear Performed By Comment . [facility] Comment on above: Myriam blair, Plan Manager (ASCP) Cytology report Cyto stain D oc (Cvx/Vag)Ordered By: Amy Meyers on 08-18-2024 Thin Prep Pap Smear Comment . [facility] Comment on above: The Pap smear is a s creening test designed to aid in thedetection of premalignant and malignant conditions of theuterine cervix. It is not a diagnostic procedure andshould not be used as the sole means of detecting cervicalcancer. Both false-positive and false-negative reports dooccur. Eosinophil percentageOrdered By: mAy Meyers on 08-18-2024 Eosinophils/100 WBC (Bld) 0.7 % 0-5 [facility] Erythrocyte distribution wid th ratioOrdered By: Amy Meyers on 08-18-2024 Erythrocyte distribution wid th (RBC) [Ratio] 13.2 % 11.6-14.6 [facility] Erythrocyte distribution wid th standard deviationOrdered By: Amy Meyers on 08-18-2024 Erythrocyte distribution wid th (RBC) [Entitic vol] 43.5 fL 35.1-43.9 [facility] Erythrocyte distribution wid th (RBC) [Ratio] 43.5 fl 35.1-43.9 [facility] HBV surface Ag Ql (S)Ordered By: Amy Meyers on 08-18-2024 Hepatitis B Surface Antigen Non-Reactive Nonrea ctive [facility] Comment on above: Reactive: Presumptiv e evidence of HBV. Repeatedly reactive samples must be confirmed using a neutralization test ([email or web address] HBsAg Confirmatory Test)Non-Reactive: HBsAg not detected; does not exclude the possibility of exposure to HBV Hematocrit Auto (Bld) [Volum e fraction]Ordered By: Amy Meyers on 08-18-2024 Hematocrit (Bld) [Volume fraction] 41.0 % 37-47 [facility] Hemoglobin A1con 08-18-2024 HbA1c (Bld) [Mass fraction] 5.1 % Low <=5.6 [facility] Comment on above: Performed By: #### B TS, L501.9985, L3890.6006, L100.0100, L509.8002, L509.4006, L3890.6102, L3890.6301 #### [facility] [place], [address] Hemoglobin A1c percentageOrd ered By: Amy Meyers on 08-18-2024 HbA1c (Bld) [Mass fraction] 5.1 % Low >5.7 [facility] Hemoglobin measurementOrdere d By: Amy Meyers on 08-18-2024 Hemoglobin (Bld) [Mass/Vol] 14.1 g/dL 12.0-15. 0 [facility] Hepatitis C antibodyOrdered By: Amy Meyers on 08-18-2024 Hepatitis C Antibody Non-Reactive Nonreactive [facility] Comment on above: Reactive: Presumptiv e evidence of antibodies to HCV. Follow CDC recommendations for supplemental testing.Non-Reactive: Antibodies to HCV were not detected; does not exclude the possibility of exposure to HCVReactive Results are presumptive evidence of antibodies to HCV. Follow CDC recommendations for supplemental testing.Order confirmation testing: HCV Quant by PCR testing - HCVPCR #[id number] Non Reactive: < 0.8 Equivocal: >/= 0.8 to < 1.0 Reactive: >/= 1.0The CDC requires that a reactive/equivocal HCV antibody result be sent out for confirmation. HCV Quant by PCR testing. Image-guided ThinPrep PapOrd ered By: Amy Meyers on 08-18-2024 Pap Smear Note Comment . [facility] Comment on above: This liquid based Th inPrep(R) pap test was screened withthe use of an image guided system. Image-guided liquid-based Pa pOrdered By: Amy Meyers on 08-18-2024 Pap Smear Diagnosis Comment . [facility] Comment on above: NEGATIVE FOR INTRAEP ITHELIAL LESION OR MALIGNANCY. Image-guided liquid-based ce rvical Pap w high-risk HPV+reflex to HPV 16+18Ordered By: Amy Meyers on 08-18-2024 Human Papillomavirus Screen Comment . [facility] Comment on above: The HPV DNA reflex c riteria were not met with this specimenresult therefore, no HPV testing was performed.Performed at: [address] [id number] Director: Sonam Leon MD, Phone: [phone] at: WB - [facility] [address] [place] [id number] Director: Kyra Anderson MD, Phone: [phone] Immature granulocytes/100 WB C Auto (Bld)Ordered By: Amy Meyers on 08-18-2024 Immature granulocytes/100 WB C (Bld) 0.200 % 0.0-0.9 [facility] Comment on above: IG% - Immature Granu locytes (promyelocytes, myelocytes and metamyelocytes) > 1% indicates that a LEFT SHIFT is Present. L3890.6006on 08-18-2024 HIV Non-Reactive Normal Nonreactive [facility] Comment on above: Result Comment: Non- Reactive Reactive Repeatedly reactive samples must be confirmed according to CDC recommended confirmatory algorithms. The subresults for either HIVAG or AHIV can be used as an aid in the selection of the confirmation algorithm for reactive samples. Send out specimens with Reactive results to [facility] for confirmation. Order the HIV antibody detection and differentiation: [id number] Performed By: #### B TS, L501.9985, L3890.6006, L100.0100, L509.8002, L509.4006, L3890.6102, L3890.6301 #### [facility] [address] [facility] [place], [place], [address] L3890.6102on 08-18-2024 HEP B Surf Ag Non-Reactive Normal Nonreactive [facility] Comment on above: Result Comment: Reac tive: Presumptive evidence of HBV. Repeatedly reactive samples must be confirmed using a neutralization test ([employer] HBsAg Confirmatory Test) Non-Reactive: HBsAg not detected; does not exclude the possibility of exposure to HBV Performed By: #### B TS, L501.9985, L3890.6006, L100.0100, L509.8002, L509.4006, L3890.6102, L3890.6301 #### [facility] [address] [place], [place], [id number] L3890.6301on 08-18-2024 Hepatitis C Ab Non-Reactive Normal Nonreactive [facility] Comment on above: Result Comment: Reac tive: Presumptive evidence of antibodies to HCV. Follow CDC recommendations for supplemental testing. Non-Reactive: Antibodies to HCV were not detected; does not exclude the possibility of exposure to HCV Reactive Results are presumptive evidence of antibodies to HCV. Follow CDC recommendations for supplemental testing. Order confirmation testing: HCV Quant by PCR testing - HCVPCR #[id number] Non Reactive: < 0.8 Equivocal: >/= 0.8 to < 1.0 Reactive: >/= 1.0 The CDC requires that a reactive/equivocal HCV antibody result be sent out for confirmation. HCV Quant by PCR testing. Performed By: #### B TS, L501.9985, L3890.6006, L100.0100, L509.8002, L509.4006, L3890.6102, L3890.6301 #### [facility] [address] [facility] [place], [place], [id number] L509.4006on 08-18-2024 Rubella IgG REAC [facility] Comment on above: Result Comment: Anti body Result: Interpretation Non-Reactive: Non-Immune Reactive: Immune The following results were obtained with the [employer] Rubella IgG assay. Results from assays of other manufacturers cannot be used interchangeably. Performed By: #### B TS, L501.9985, L3890.6006, L100.0100, L509.8002, L509.4006, L3890.6102, L3890.6301 #### [facility] [address] [place], [place], [address] L509.8002on 08-18-2024 Syphilis Abs Non-Reactive Normal [facility] Comment on above: Performed By: #### B TS, L501.9985, L3890.6006, L100.0100, L509.8002, L509.4006, L3890.6102, L3890.6301 #### [facility] [address] [facility] [place], [place], [id number] Laboratory - CytologyOrdered By: Amy Meyers on 08-18-2024 Mandarin Chinese Teacher Cyto stain Nom (Cvx/Vag) [ID] Comment . [facility] Comment on above: Myriam blair, Plan Manager (ASCP) Laboratory - Microbiology an d Antimicrobial susceptibilityOrdered By: Amy Meyers on 08-18-2024 HBV surface Ag Ql (S) Non-Reactive Nonreactive [facility] Comment on above: Reactive: Presumptiv e evidence of HBV. Repeatedly reactive samples must be confirmed using a neutralization test ([email or web address] HBsAg Confirmatory Test)Non-Reactive: HBsAg not detected; does not exclude the possibility of exposure to HBV Laboratory - Miscellaneous t estsOrdered By: Amy Meyers on 08-18-2024 Service comment (Unsp spec) [Interp] . . [facility] Lymphocytes Auto (Unsp spec) [#/Vol]Ordered By: Amy Meyers on 08-18-2024 Lymphocytes (Bld) [#/Vol] 2.17 10*3/uL 0.83-4.5 1 [facility] Lymphocytes/100 WBC Auto (Un sp spec)Ordered By: Amy Meyers on 08-18-2024 Lymphocytes/100 WBC (Bld) 21.6 % 19-41 [facility] MCV (mean corpuscular volume ) determinationOrdered By: Amy Meyers on 08-18-2024 MCV (RBC) [Entitic vol] 91.1 fL 81-99 [facility] Mean corpuscular hemoglobin (MCH) determinationOrdered By: Amy Meyers on 08-18-2024 MCH (RBC) [Entitic mass] 31.3 pg 27.0-32.0 [facility] Mean corpuscular hemoglobin concentration (MCHC) determinationOrdered By: Amy Meyers on 08-18-2024 MCHC (RBC) [Mass/Vol] 34.4 g/dL 32-36 [facility] Mean platelet volume determi nationOrdered By: Amy Meyers on 08-18-2024 Platelet mean volume (Bld) [Entitic vol] 10.5 fL 6.2-12.0 [facility] Monocyte percentageOrdered B y: Amy Meyers on 08-18-2024 Monocytes/100 WBC (Bld) 7.2 % 0-10 [facility] Neisseria gonorrhoeae nuclei c acid detection by amplified probe techniqueOrdered By: Amy Meyers on 08-18-2024 N. gonorrhoeae DNA SHANTE+probe Ql (Unsp spec) Negative Negative [facility] Comment on above: Performed at: =[address] [id number] Director: Kyra Anderson MD, Phone: [phone] Neutrophil percentageOrdered By: Amy Meyers on 08-18-2024 Neutrophils/100 WBC (Bld) 69.8 % 47-70 [facility] No Panel InformationOrdered By: Amy Meyers on 08-18-2024 Pap Smear Specimen Adequacy Comment . [facility] Comment on above: Satisfactory for winifred luation. Endocervical and/or squamous metaplasticcells (endocervical component) are present. HIV (1&2) Antibody Non-Reactive Nonreactive [facility] Comment on above: Non-ReactiveReactive Repeatedly reactive samples must be confirmed according to CDC recommended confirmatory algorithms. The subresults for either HIVAG or AHIV can be used as an aid in the selection of the confirmation algorithm for reactive samples.Send out specimens with Reactive results to [facility] for confirmation.Order the HIV antibody detection and differentiation: #[id number] Nucleated red blood cell per centageOrdered By: Amy Meyers on 08-18-2024 Nucleated RBC/100 WBC (Bld) [Ratio] 0 % 0-5 [facility] Chief Inspector Office Visit Reporton 08-18-2024 Chief Inspector Office Visit Report [facility] [address], [address] [place] [address] OFFICE VISIT Date of Service: 08/18/24 MR#: [id number] Acct: [id number] Name: RADHA DOUGLAS Rep #: [id number] : 1995 Provider: LUIS Brar ams Age/Sex: 28/F Location[place] [facility] Status: Signed Intake Vital Signs 08/18/24 13:43 Height 5 ft 8 in Weight: 195 lb 6 oz BMI 29.7 BP 122/57 H Intake Visit Reasons: 10WK NOB LMP 06/07/24 Chief Complaint: New OB Is patient in pain?: No Allergies No Known Allergies Allergy (Unverified 08/18/24 13:37) Medications ???Medication ???Instructions ???Recorded ???Confirmed ???Type multivitamin no.47-iron fum 27 cap PO 08/04/24 08/18/24 History mg-folate no.1 1 mg-dha 300 mg capsule (PNV-DHA) pyridoxine (vitamin B6) 10 mg 10 mg PO TID 08/04/24 08/18/24 His tory tablet Last Menstrual Period: 06/07/24 : Yes PFSH PFSH Medical History Seasonal allergies Family History Mother Cancer, Onset Age: 19 cervical Breast cancer, Onset Age: 35 Grandmother Diabetes Maternal Type 1 Social History adopted: No household members: spouse and children housing: house number of children: 1 service: No current occupational status: employed 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 pets and animals: Yes pets and animals: dog(s) history of recent travel: No sexually active: Yes Smoking Status: Never smoker alcohol intake: never substance use type: does not use well-balanced diet: daily or most days caffeine: No eating out: 1-3 times/week during the past year weight has: remained stable what type of physical activity do you participate in: none cristobal/mormon: Yarsanism seatbelt use: always do you feel safe at home: Yes additional social history: Julio History 2 Elective abortions Hx Para 1 Spontaneous abortions Hx # Term Pregnancies Ectopic pregnancies Hx # Pregnancies Multiple births # of living children 1 Past Pregnancies Del. Date Name GA/Weeks Outcome Route Bth Weight Infant Gen Labor Lgth Anesthesia Del Locatn Provider FOB 12/15/20 Elise 37 live - full term 7#8oz Male epidural Mónica Kim HPI 10WK NOB LMP 06/07/24 Details: RADHA DOUGLAS is a 28 year old who presents for New OB visit. OB Visit DIANDRA Calculator Estimated Delivery Date Method Current WG Current Estimate 03/14/25 LMP (Certain) 10w 2d Other Estimates 03/20/25 Ultrasound #1 9w 3d Comments: HIV: Urine Culture: Sequential Screen: NIPT Screen: Estimated Due Date: 03/14/25 Expected Delivery Route/Plan Labor Preferences- CB/BF classes: [] labor support person: [] labor intervention preferences: [] pain management options preferred: [] cut cord/dad catch: [] : [] PP control planned: [] discussed possible routes of delivery and associated risks: [] special requests: [] Specific Issue/Plans Covid status: [] Flu vaccine: [] Tdap vaccine: [] Rhogam: [] LARC form signed: [] Problem list reviewed and updated with the most current plan of care details and appropriate orders placed. Relevant counseling for the gestational age provided. Continue routine care and follow up unless otherwise noted in visit notes/problem list details Initial Weight: 195 lb Date -???-???-???-???- ???-???-???-???-? ??-???-???-???- EGA Weight BP Urine Prot -???-???-???-???- ???-???-???-???-? ??-???-???-???- Glucose FHR FuHt Pres Dilation -???-???-???-???- ???-???-???-???-? ??-???-???-???- Effaced St Visit Note 08/18/24 -???-???-???-???- ???-???-???-???-? ??-???-???-???- 10w 2d 195 lb 6 oz (+6 oz) 122/57 -???-???-???-???- ???-???-???-???-? ??-???-???-???- 178 -???-???-???-???- ???-???-???-???-? ??-???-???-???- KW- CRL 2.63 cm. measuring 9.3 weeks. Declines NIPT. Menstrual History Last Menstrual Period: 06/07/24 Reported LMP: definite Normal amount/duration: Yes Frequency in days: 28-30 On hormonal BC at conception: No hCG+: 07/07/24 Antepartum Record Genetic Screening: Congenital Heart Defect: Other, Neural Tube Defect: Other, Hemoglobinopathy Or Carrier: Other, Cystic Fibrosis: Other, Chromosome Abnormality: Other, Christ-Sachs: Other, Hemophilia: Other, Intellectual Disability/Autism : Partner (Brother), Recurrent Loss/Stillbirth: Other, Other Structural Defect: Other, Other Genetic Disease: Other and Maternal Metabolic Disorder: Other Infection History: Live with someone with TB or Exposed to TB: No, Patient or Partner has history of Genital Herpes: No, Rash (more content not included)... Normal [facility] Platelet countOrdered By: Jeyson Meyers on 08-18-2024 Platelets (Bld) [#/Vol] 249 10*3/uL 150-450 [facility] RBC Auto (Bld) [#/Vol]Ordere d By: Amy Meyers on 08-18-2024 RBC (Bld) [#/Vol] 4.50 10*6/uL 4.2-5.4 [facility] Rubella immune status determ ination by IgG antibody assayOrdered By: Amy Meyers on 08-18-2024 Rubella IgG Antibody REAC Nonreactive [facility] Comment on above: Antibody Result: Int erpretationNon-Reactive: Non-ImmuneReactive: ImmuneThe following results were obtained with the [email or web address] Rubella IgG assay. Results from assays of other manufacturers cannot be used interchangeably. Service comment (Unsp spec) [Interp]Ordered By: Amy Meyers on 08-18-2024 Pap Smear Comment (3) . . [facility] T. pallidum abOrdered By: Jeyson Meyers on 08-18-2024 Syphilis Total Antibody Non-Reactive Nonreactiv e [facility] Type AND Screenon 08-18-2024 ABO and Rh group Nom (Bld) Blood group O Rh(D) negative Normal [facility] Comment on above: Order Comment: PN Performed By: #### B TS, L501.9985, L3890.6006, L100.0100, L509.8002, L509.4006, L3890.6102, L3890.6301 #### [facility] [address] [place], [address] Urine cultureOrdered By: Noble Meyers on 08-18-2024 Bacteria identified Cx Nom (U) Positive Abnormal [facility] White blood cell (WBC) count Ordered By: Amy Meyers on 08-18-2024 WBC (Bld) [#/Vol] 10.1 10*3/uL 4.4-11.0 [facility] HCGon 07-13-2024 Date of LMP unknown Normal [facility] Comment on above: Performed By: #### H CG #### [place] [id number] [place] [address] hCG, quantitative 416.6 mIU/mL Normal [facility] Comment on above: Result Comment: Adelso titative hCG reference ranges: Non adults. . . . . . . . . . .0 - 5 mIU/mL (All values referenced to 1st IRP / 3rd IS 75/537 standards.) females based on gestational age: 1 week. . . . . . . . . . . . . . . .5 - 50 mIU/mL 2 weeks . . . . . . . . . . . . . . .50 - 500 mIU/mL 3 weeks . . . . . . . . . . . . . . .100 - 10,000 mIU/ml 4 weeks . . . . . . . . . . . . . . .1,000 - 30,000 mIU/mL 6-8 weeks . . . . . . . . . . . . . . .12,000 - 270,000 mIU/mL 12 weeks . . . . . . . . . . . . . . .15,000 - 220,000 mIU/mL 2nd trimester . . . . . . . . . . . .2,500 - 82,000 mIU/mL 3rd trimester . . . . . . . . . . . .2,400 - 50,000 mIU/mL Performed By: #### H CG #### [place] [address] [id number] 07-01-2021 Date of Onset [id number] Invalid Interpretation Code [facility] ([place]) Comment on above: Performed By: #### C OVID19 #### [place] [address] Employed in Healthcare No [facility] ([place]) Comment on above: Performed By: #### C OVID19 #### [place] [address] First Test No [facility] ([place]) Comment on above: Performed By: #### C OVID19 #### [place] [address] Hospitalized No [facility] ([place]) Comment on above: Performed By: #### C OVID19 #### [place] [address] ICU No [facility] ([place] Comment on above: Performed By: #### C OVID19 #### [place] [address] Not [facility] ([place]) Comment on above: Performed By: #### C OVID19 #### [place] [address] Resides in Congregate Care Setting No [facility] ([place]) Comment on above: Performed By: #### C OVID19 #### [place] [address] SARS-CoV-2 (COVID-19) RNA SHANTE+probe Ql (Unsp spec) Nasopharyngeal Normal [facility] ([place]) Comment on above: Performed By: #### C OVID19 #### [place] [address] SARS-CoV-2 (COVID-19) RNA SHANTE+probe Ql (Unsp spec) Positive Abnormal Negative [facility] ([place]) Comment on above: Performed By: #### C OVID19 #### [place] [address] SARS-CoV-2 (COVID-19) RNA SHANTE+probe Ql (Unsp spec) [facility] ([place]) Comment on above: Result Comment: This organism causes a reportable disease. Inection Control has been notified Results have been reported to the [place] Department of Health. This test is being used under the FDA EUA procedure. This assay has been validated in the [facility] for use with nasopharyngeal and oropharyngeal specimens in [facility] or [facility]. If a non-validated specimen or test collection method was used, please interpret the results with caution, especially if the test result is negative. A positive test result for COVID-19 indicates that RNA from SARS-CoV-2 was detected, and the patient is infected with the virus and presumed to be contagious. Laboratory test results should always be considered in the context of clinical observations and epidemiological data in making a final diagnosis and patient management decisions. Patient management should follow current CDC guidelines. All laboratories using this test must follow the standard testing and reporting guidelines according to their appropriate public health authorities. The BD SARS-CoV-2 Reagents for [employer] System is a real-time RT-PCR test intended for the qualitative detection of nucleic acid from the SARS-CoV-2 in nasopharyngeal and oropharyngeal swab samples. COVID-19 Int Performed By: #### C OVID19 #### [address] [address] Symptomatic as Defined by CDC Yes Normal [facility] ([place]) Comment on above: Performed By: #### C OVID19 #### [address] [address] Acetaminophen [Mass/volume] in Serum or Plasmaon 12-29-2020 Acetaminophen [Mass/Vol] 0.0 ug/mL Normal 0.0-30.0 [facility] Comment on above: Performed By: #### T 4, 4024-6, MPC, 3024-7, 3298-7, 5643-2 #### [facility] [address] Bacteria identified in Urine by Cultureon 12-29-2020 Bacteria identified Cx Nom (U) Bacteria identified in Urine by Culture Final report Bacteria identified in Urine by Culture Bacteria identified in Urine by Culture Comment Mixed urogenital hossein 25,000-50,000 colony forming units per mL Performed at: [facility] [id number] Newspaper Delivery Driver: Raphael Aj PhD, Phone: [phone] Normal [facility] Comment on above: Performed By: #### 6 30-4 #### LABORATORY [place] [id number] [facility] CBC W Auto Differential pane l (Bld)on 12-29-2020 BASOPHIL ABSOLUTE COUNT 0.07 x10*3/uL Normal 0.0-0.1 [facility] Comment on above: Performed By: #### 5 7021-8 #### [facility] [address] Basophils/100 WBC (Bld) 0.9 % Normal 0.0-1.1 [facility] Comment on above: Performed By: #### 5 7021-8 #### [facility] [address] EOS ABSOLUTE COUNT 0.03 x10*3/uL Normal 0.0-0.5 [facility] Comment on above: Performed By: #### 5 7021-8 #### [facility] [address] Eosinophils/100 WBC (Bld) 0.4 % Normal 0.0-6.0 [facility] Comment on above: Performed By: #### 5 7021-8 #### [facility] [address] Hematocrit (Bld) [Volume fraction] 41.0 % Normal 36.0-48.0 [facility] Comment on above: Performed By: #### 5 7021-8 #### [facility] [address] Hemoglobin (Bld) [Mass/Vol] 13.0 g/dL Normal 11.0-17. 0 [facility] Comment on above: Performed By: #### 5 7021-8 #### [facility] [place] [id number] [facility] IMMATURE GRAN ABSOLUTE COUNT 0.02 x10*3/uL Normal 0.0- 0.5 [facility] Comment on above: Performed By: #### 5 7021-8 #### [facility] [address] Immature granulocytes/100 WB C (Bld) 0.3 % Normal 0.0-2.99 [facility] Comment on above: Performed By: #### 5 7021-8 #### [facility] [place] [id number] [facility] LYMPHOCYTE ABSOLUTE COUNT 2.04 x10*3/uL Normal 0.5-3.2 [facility] Comment on above: Performed By: #### 5 7021-8 #### [facility] [place] [address] [facility] Lymphocytes/100 WBC (Bld) 26.1 % Normal 13.0-39.0 [facility] Comment on above: Performed By: #### 5 7021-8 #### [facility] [address] MCH (RBC) [Entitic mass] 27.4 pg Normal 26.0-33.0 [facility] Comment on above: Performed By: #### 5 7021-8 #### [facility] [address] MCV (RBC) [Entitic vol] 86.5 fL Normal 81.0-98.0 [facility] Comment on above: Performed By: #### 5 7021-8 #### [facility] [address] MEAN CORPUSCULAR HGB CONC 31.7 g/dl Normal 31.0-35.0 [facility] Comment on above: Performed By: #### 5 7021-8 #### [facility] [address] MONOCYTE ABSOLUTE COUNT 0.74 x10*3/uL Normal 0.0-1.0 [facility] Comment on above: Performed By: #### 5 7021-8 #### [facility] [place] [id number] [facility] Monocytes/100 WBC (Bld) 9.5 % Normal 4.0-13.0 [facility] Comment on above: Performed By: #### 5 7021-8 #### [facility] [address] NEUTROPHIL COUNT ABSOLUTE 4.91 x10*3/uL Normal 1.5-6.2 [facility] Comment on above: Performed By: #### 5 7021-8 #### [facility] [address] Neutrophils/100 WBC (Bld) 62.8 % Normal 47.0-76.0 [facility] Comment on above: Performed By: #### 5 7021-8 #### [facility] [address] NUCLEATED RBC ABSOLUTE COUNT 0.00 x10*3/uL Normal [facility] Comment on above: Performed By: #### 5 7021-8 #### [facility] [address] Nucleated RBC/100 WBC (Bld) [Ratio] 0.0 % Normal [facility] Comment on above: Performed By: #### 5 7021-8 #### [facility] [address] PLATELET COUNT 378 x10*3/uL Normal 150-400 [facility] Comment on above: Performed By: #### 5 7021-8 #### [facility] [address] Platelet mean volume (Bld) [Entitic vol] 9.8 fL Normal 9.0-12.1 [facility] Comment on above: Performed By: #### 5 7021-8 #### [facility] [address] RED BLOOD COUNT 4.74 x10*6/uL Normal 3.8-6.0 [facility] Comment on above: Performed By: #### 5 7021-8 #### [facility] [address] RED CELL DISTRIBUTION WIDTH 49.6 fL High 36.7-49. 4 [facility] Comment on above: Performed By: #### 5 7021-8 #### [facility] [address] WHITE BLOOD COUNT 7.81 X10*3/uL Normal 3.8-11.5 [facility] Comment on above: Performed By: #### 5 7021-8 #### [facility] [address] COMPREHENSIVE METABOLIC PANE Jed 12-29-2020 Albumin [Mass/Vol] 3.5 g/dL Normal 3.2-5.0 [facility] Comment on above: Performed By: #### T 4, 4024-6, MPC, 3024-7, 3298-7, 5643-2 #### [facility] [address] Albumin/Globulin [Mass ratio] 0.8 {ratio} Normal [facility] Comment on above: Performed By: #### T 4, 4024-6, MPC, 3024-7, 3298-7, 5643-2 #### [facility] [address] ALP [Catalytic activity/Vol] 136 U/L Normal 50-136 [facility] Comment on above: Performed By: #### T 4, 4024-6, MPC, 3024-7, 3298-7, 5643-2 #### [facility] [address] ALT [Catalytic activity/Vol] 27 U/L Low 30-65 [facility] Comment on above: Performed By: #### T 4, 4024-6, MPC, 3024-7, 3298-7, 5643-2 #### [facility] [address] Anion gap [Moles/Vol] 17 mmol/L Normal 10-20 [facility] Comment on above: Performed By: #### T 4, 4024-6, MPC, 3024-7, 3298-7, 5643-2 #### [facility] [address] AST [Catalytic activity/Vol] 16 U/L Normal 15-37 [facility] Comment on above: Performed By: #### T 4, 4024-6, MPC, 3024-7, 3298-7, 5643-2 #### [facility] [address] [address] Bilirubin [Mass/Vol] 0.6 mg/dL Normal 0.0-1.0 [facility] Comment on above: Performed By: #### T 4, 4024-6, MPC, 3024-7, 3298-7, 5643-2 #### [facility] [address] [address] Calcium [Mass/Vol] 8.7 mg/dL Normal 8.7-10.5 [facility] Comment on above: Performed By: #### T 4, 4024-6, [facility] [place], 3024-7, 3298-7, 5643-2 #### [facility] [address] Chloride [Moles/Vol] 101 mmol/L Normal 99-111 [facility] Comment on above: Performed By: #### T 4, 4024-6, [facility], 3024-7, 3298-7, 5643-2 #### [facility] [address] CO2 [Moles/Vol] 28 mmol/L Normal 21.0-32.0 [facility] Comment on above: Performed By: #### T 4, 4024-6, [facility] [place], 3024-7, 3298-7, 5643-2 #### [facility] [address] Creatinine [Mass/Vol] 0.7 mg/dL Normal 0.5-1.2 [facility] Comment on above: Performed By: #### T 4, 4024-6, [facility] [place], 3024-7, 3298-7, 5643-2 #### [facility] [address] [address] [place] GFR/1.73 sq M.predicted ilya g non-blacks MDRD (S/P/Bld) [Vol rate/Area] 108 mL/min/{1.73_m2} Normal >59 [facility] Comment on above: Performed By: #### T 4, 4024-6, [facility], 3024-7, 3298-7, 5643-2 #### [facility] [address] [address] [facility] Globulin (S) [Mass/Vol] 4.4 g/dL Normal 1.3-4.7 [facility] Comment on above: Performed By: #### T 4, 4024-6, MPC, 3024-7, 3298-7, 5643-2 #### [facility] [address] [address] [facility] Glucose [Mass/Vol] 71 mg/dL Normal 70-100 [facility] Comment on above: Performed By: #### T 4, 4024-6, MPC, 3024-7, 3298-7, 5643-2 #### [facility] [address] [address] [facility] Potassium [Moles/Vol] 3.6 mmol/L Normal 3.5-5.0 [facility] Comment on above: Performed By: #### T 4, 4024-6, MPC, 3024-7, 3298-7, 5643-2 #### [facility] [address] [address] [facility] Protein [Mass/Vol] 7.9 g/dL Normal 6.0-8.5 [facility] Comment on above: Performed By: #### T 4, 4024-6, MPC, 3024-7, 3298-7, 5643-2 #### [facility] [address] [address] [facility] Sodium [Moles/Vol] 142 mmol/L Normal 137-147 [facility] Comment on above: Performed By: #### T 4, 4024-6, [facility], 3024-7, 3298-7, 5643-2 #### [facility] [address] [address] [facility] Urea nitrogen [Mass/Vol] 12 mg/dL Normal 7-22 [facility] Comment on above: Performed By: #### T 4, 4024-6, [facility], 3024-7, 3298-7, 5643-2 #### [facility] [address] [address] [facility] Urea nitrogen/Creatinine [Ma ss ratio] 17.1 mg/mg Normal 11-29 [facility] Comment on above: Performed By: #### T 4, 4024-6, MPC, 3024-7, 3298-7, 5643-2 #### [facility] [place] [id number] [facility] Chest 1 vw AP or PAon 2020 Chest 1 vw AP or PA [place] [address] Diagnostic Imaging Radiology Report Name: RADHA LEWIS Pt Type: REG ER MR #: [id number] Room & Bed: Date of : 1995 Date of Service: 12/29/20 Age: 25 Ordering Doctor: Julio Pettit MD Sex: Female Family Doctor: Miscellaneous Physician Order #: [id number] Dictating Doctor: Colby Alejo Admit Date: Referring Doctor: Other Doctor: Additional Copies: === WHRPT:HIE EXAM: CHEST 1 VW AP OR PA HISTORY: BHU Clearance COMPARISON: None. TECHNIQUE: Portable chest was done at 8:09 PM. FINDINGS: Trachea, mediastinum and heart size are unremarkable. The lungs are clear and well aerated. No infiltrate or nodule or effusion or pneumothorax is noted. The diaphragm and bony elements are intact. IMPRESSION: Nonacute portable chest. THIS REPORT HAS BEEN ELECTRONICALLY SIGNED BY: 12/29/2020 21:15: Colby Alejo MD 12/29/208 DICTATED BY: Colby Alejo CC: CONFIDENTIALITY NOTICE: This report is for the sole use of the intended recipient and may contain confidential and privileged information. Any unauthorized review, use, disclosure or distribution is prohibited. If you are not the intended recipient, please contact [facility] at [phone] and destroy all copies of the original. Normal [facility] Choriogonadotropin (pregnanc y test) [Presence] in Urineon 12-29-2020 HCG ( test) Ql (U) Negative Normal Negative [facility] Comment on above: Performed By: #### T 4, 4024-6, [facility] [place], 3024-7, 3298-7, 5643-2 #### [facility] [address] Drugs identified Screen Nom (U)on 12-29-2020 Amphetamines Ql (U) Negative Normal Negative [facility] Comment on above: Performed By: #### T 4, 4024-6, [facility] [place], 3024-7, 3298-7, 5643-2 #### [facility] [address] Barbiturates Screen Ql (U) Negative Normal Negative [facility] Comment on above: Performed By: #### T 4, 4024-6, [facility] [place] [place], 3024-7, 3298-7, 5643-2 #### [facility] [address] Benzodiazepines Ql (U) Negative Normal Negative [facility] Comment on above: Performed By: #### T 4, 4024-6, [facility] [place], 3024-7, 3298-7, 5643-2 #### [facility] [address] Benzoylecgonine Screen Ql (U) Negative Normal Negati ve [facility] Comment on above: Performed By: #### T 4, 4024-6, [facility] [place], 3024-7, 3298-7, 5643-2 #### [facility] [address] Cannabinoids Screen Ql (U) Negative Normal Negative [facility] Comment on above: Result Comment: The urine drug screen is for diagnostic and treatment purposes only. Drug cross-reactivity may occur. A negative urine drug result does not indicate the absence of all drugs of abuse. A positive result does not presume impairment or intoxication of the patient. Confirmation of Positive Results must be ordered. CUTOFFS: AMPH 1000 ng/mL THEO 200 ng/mL RIVERA 200 ng/mL COCAINE 300 ng/mL ECSTACY 300 ng/mL OPIATE 300 ng/mL PCP 25 ng/mL THC 50 ng/mL Performed By: #### T 4, 4024-6, [facility], 3024-7, 3298-7, 5643-2 #### [facility] [address] Methylenedioxymethamphetamin e Screen Ql (U) Negative Normal Negative [facility] Comment on above: Performed By: #### T 4, 4024-6, [facility] [place], 3024-7, 329-7, 5643-2 #### [facility] [address] Opiates Screen Ql (U) Negative Normal Negative [facility] Comment on above: Performed By: #### T 4, 4024-6, [facility] [place], 3024-7, 329-7, 5643-2 #### CL[facility] [address] Phencyclidine Ql (U) Negative Normal Negative [facility] Comment on above: Performed By: #### T 4, 4024-6, [facility], 3024-7, 3297, 5643-2 #### [facility] [address] Ethanol [Mass/volume] in Ser um or Plasmaon 12-29-2020 Ethanol [Mass/Vol] mg/dL Normal [facility] Comment on above: Performed By: #### T 4, 4024-6, [facility], 302-7, 3297-7, 5643-2 #### [facility] [address] Microscopic observation LM N om (Urine sed)on 12-29-2020 Bacteria LM Ql (Urine sed) 1+ Normal Trace [facility] Comment on above: Performed By: #### T 4, 4024-6, [facility], 3024-7, 329-7, 5643-2 #### [facility] [address] Epithelial cells Ql (U) 0-5 Normal 0-5 W [facility] Comment on above: Performed By: #### T 4, 4024-6, [facility] [place], 3024-7, 3298-7, 5643-2 #### [facility] [address] Mucus Ql (Urine sed) 1+ Normal Negative [facility] Comment on above: Performed By: #### T 4, 4024-6, [facility], 3024-7, 3298-7, 5643-2 #### [facility] [address] RBC Ql (U) 0-3 Normal 0-3 [facility] Comment on above: Performed By: #### T 4, 4024-6, [facility] [place], 3024-7, 3298-7, 5643-2 #### [facility] [address] WBC Visual Ql (U) 5-10 Abnormal 0-5 [facility] Comment on above: Result Comment: REFL EX CULTURE IN PROGRESS Performed By: #### T 4, 4024-6, [facility] [place], 3024-7, 3298-7, 5643-2 #### [facility] [address] Physician Documentationon Physician Documentation [place] [id number] Medical Records Department ED Physician Documentation Name: RADHA LEWIS Pt Type: DEP ER MR #: [id number] Room AND Bed: Date of : 1995 Date of Service: 12/29/20 Age: 25 Ordering Doctor: Sex: Female Family Doctor: Miscellaneous Physician Order #: Dictating Doctor: Julio Pettit MD Admit Date: Referring Doctor: Other Doctor: Additional Copies: === ED HPI General Medical General Adult HPI Chief Complaint Altered Mental Status/Unresponsi ve Stated Complaint POST- MENTAL HEALTH ISSUES Time Seen by Provider 12/29/20 19:04 Information Source Patient Limitations No Limitations History of Present Illness HPI Narrative Patient presents to the ED requesting mental health evaluation. She is 2 weeks . She says she has not able to sleep. She has constant feelings of panic that something was going to happen to her baby. She is worried somebody might steal her child. She says people have been trying to break into her house. She says her doctor prescribed her medication but she has to started taking it and does not feel like it is helping. She feels depressed but also very anxious. He denies self-harm. She says she cannot live like this. Review of Systems - ED ROS All Systems reviewed and negative Except as Stated Constitutional Denies fever and chills Cardiovascular Denies chest pain and palpitations Respiratory Denies cough and dyspnea Gastrointestinal Denies abdominal pain, nausea, vomiting, diarrhea and constipation Genitourinary Denies dysuria and hematuria Musculoskeletal Denies arthralgia and myalgia Integumentary Denies rash and lesions Neurological Denies weakness and numbness Psychiatric Reports anxiety and depression Allergies/Adverse Reactions No Known Allergies Allergy (Unverified 12/29/20 18:53) Past Medical History Medical History (Updated 12/29/20 @ 22:50 by Julio Pettit MD) History of depression (Medical) Z87.59, Z86.59 Past Surgical History Surgical History No pertinent past surgical history (Surgical) Z78.9 Past Social History Chewing Tobacco Status: Never Smoking Status: Never Smoker Alcohol Use: Never Recreational Drug Use: Never Physical Exam Initial Vital Signs Vital Signs First Set: Vital Signs First Set Temp Pulse Resp BP Pulse Ox 98.8 F 81 18 126/81 98 12/29/20 18:33 12/29/20 18:33 12/29/20 18:33 12/29/20 18:33 12/29/20 18:33 General Limitations: Present No Limitations General Appearance: Present Alert and In No Apparent Distress Head Head: Present Atraumatic and Normocephalic Eye Eye Exam: Present PERRL and EOMI ENT ENT Exam: Present no evidence of ENT injury and Normal Nose Neck Neck: Present supple and normal inspection Chest Chest Exam: Present Normal Inspection and Symmetric Chest Wall Rise Respiratory Respiratory Exam: Present Normal Lung Sounds; Not Present Respiratory Distress Cardiovascular Cardiovascular/Ch est: Present normal peripheral pulses, regular rate, rhythm, no edema and no murmur Abdominal Exam Abdominal Exam: Present normal bowel sounds and non tender Extremities Exam Extremity Exam: Present Normal Inspection and Full ROM Neurological Exam Neurological Exam: Present Alert, Oriented X3 and CN II-XII Intact Psychiatric Psychiatric Exam: Present Anxious Expanded Psychiatric Expanded Psychiatric: Present Pressured Speech, Delusional, Paranoid and Flight of Ideas Skin Skin Exam: Present Warm/dry; Not Present Rash Course Vital Signs Last Vital Signs: Vital Signs - (Last Results) Temperature 98.8 F 12/29/20 18:33 Pulse Rate 57 L 12/29/20 22:59 Respiratory Rate 16 12/29/20 22:59 Blood Pressure 125/77 12/29/20 22:59 Pulse Oximetry 98 12/29/20 22:59 ED MDM General Medical MDM Narrative Medical Decision Making Narrative: Patient has depression it is having paranoid delusions and signs of hypomania. She has many social stressors. Vital signs are stable. She does not appear to be suffering from psychosis. Denies suicidal ideation. She received mental health evaluation. She does not meet inpatient hospitalization criteria. Next a follow-up was arranged. No sign of organic illness. Nursing Documentation I have reviewed the nursing documention and agree with what is charted: Yes Lab Data Result Diagrams: 12/29/20 19:30 12/29/20 19:30 Labs: Lab - All Tests (Last 24 hrs) 12/29/20 12/29/20 12/29/20 20:53 19:58 19:58 WBC RBC Hgb Hct MCV MCH MCHC RDW Plt Count MPV Abs Immat Gran (auto) Absolute Neuts (auto) Absolute Lymphs (auto) Absolute Monos (auto) Absolute Eos (auto) Absolute Basos (a (more content not included)... Normal [facility] SARS-CoV-2 (COVID-19) RNA [P resence] in Specimen by SHANTE with probe detectionon 12-29-2020 SARS-CoV-2 (COVID-19) RNA SHANTE+probe Ql (Unsp spec) Not detected Normal [facility] Comment on above: Order Comment: First Test?: YesEmployed in Healthcare: NoHospitalized?: NoICU?: No?: NoResident in a congregate care setting?: NoSymptomatic as defined by CDC?: No Result Comment: Test Method: Molecular PCR Test [facility] CLIA#: [id number] Performed By: #### T 4, 4024-6, [facility], 3024-7, 3298-7, 5643-2 #### [facility] [address] Salicylates [Mass/Vol]on SALICYLATE (ASPIRIN) 0.6 mg/dl Normal 0.0-20.0 [facility] Comment on above: Performed By: #### T 4, 4024-6, [facility], 3024-7, 3298-7, 5643-2 #### [facility] [address] T4on 12-29-2020 T4 [Mass/Vol] 14.2 ug/dL High 4.5-10.9 [facility] Comment on above: Performed By: #### T 4, 4024-6, [facility] [place], 3024-7, 3298-7, 5643-2 #### [facility] [address] Thyroxine (T4) free [Mass/vo lume] in Serum or Plasmaon 12-29-2020 Free T4 [Mass/Vol] 1.51 ng/dL Normal 0.89-1.76 [facility] Comment on above: Performed By: #### T 4, 4024-6, [facility] [place], 3024-7, 3298-7, 5643-2 #### [facility] [address] Urinalysis dipstick panel Au to test strip (U)on 12-29-2020 Appearance (U) CLEAR Normal Clear [facility] Comment on above: Performed By: #### T 4, 4024-6, [facility] [place], 3024-7, 3298-7, 5643-2 #### [facility] [address] Bilirubin Ql (U) Negative Normal Negative [facility] Comment on above: Performed By: #### T 4, 4024-6, [facility] [place], 3024-7, 3298-7, 5643-2 #### [facility] [address] Color (U) YELLOW Normal Yellow [facility] Comment on above: Performed By: #### T 4, 4024-6, [facility] [place], 3024-7, 3298-7, 5643-2 #### [facility] [address] Glucose Ql (U) Negative Normal Negative [facility] Comment on above: Performed By: #### T 4, 4024-6, [facility], 3024-7, 3298-7, 5643-2 #### [facility] [address] Ketones Auto test strip Ql (U) 15 Abnormal Negat jhon [facility] Comment on above: Performed By: #### T 4, 4024-6, [facility], 3024-7, 3298-7, 5643-2 #### [facility] [address] Leukocyte esterase Auto test strip Ql (U) MODERATE Abnormal Negative [facility] Comment on above: Performed By: #### T 4, 4024-6, [facility], 3024-7, 3298-7, 5643-2 #### [facility] [address] Nitrate Ql (U) Negative Normal Negative [facility] Comment on above: Performed By: #### T 4, 4024-6, [facility], 3024-7, 3298-7, 5643-2 #### [facility] [address] pH (U) 6.0 [pH] Normal 5.0-8.5 [facility] Comment on above: Performed By: #### T 4, 4024-6, [facility], 3024-7, 3298-7, 5643-2 #### [facility] [address] Protein Ql (U) Negative Normal Negative [facility] Comment on above: Performed By: #### T 4, 4024-6, [facility], 3024-7, 3298-7, 5643-2 #### [facility] [address] RBC Ql (U) SMALL Abnormal Negative [facility] Comment on above: Performed By: #### T 4, 4024-6, [facility], 3024-7, 3298-7, 5643-2 #### CL[facility] LABORATORY [address] [address] [facility] SPECIFIC GRAVITY,URINE 1.025 Normal 1.005-1.030 W [facility] Comment on above: Performed By: #### T 4, 4024-6, [facility] [place], 3024-7, 3298-7, 5643-2 #### [facility] [address] [address] [facility] Urinalysis dipstick W Reflex Culture panel (U) Normal [facility] Comment on above: Result Comment: IF T HE DIPSTICK NITRITE IS POSITIVE AND/OR GREATER THAN 5 WBC'S ARE SEEN MICROSCOPICALLY, THEN A URINE CULTURE IS ORDERED AND REPORTED Performed By: #### T 4, 4024-6, [facility] [place], 3024-7, 3298-7, 5643-2 #### CL[facility] [address] [address] Urobilinogen Ql (U) 4.0 Abnormal [facility] Comment on above: Performed By: #### T 4, 4024-6, [facility] [place], 3024-7, 3298-7, 5643-2 #### CL[facility] [address] [address] [facility] Office Visit: [facility]: 4th titi fernandez 01-15-2017 Documentation of current medications (procedure) Done Invalid Interpretation Code [facility] Work Phone: Fall risk assessment No [facility] Work Phone: Protein mass conc Done [facility] Work Phone: Tobacco smoking status NHIS Never smoker [facility] Work Phone: Tobacco use CPHS Never smoker Invalid Interpretation Code [facility] Work Phone: Vital Signs Date Time Vital Sign Value Performing Clinician Rhys ballesteros 02-16-2025 09:25-0400 Body height 172.[address] Tiffanie Osorio MD Work Phone: [facility] 02-16-2025 09:25-0400 Body mass index (BMI) [Ratio] 31.9 kg/m2 Dr. Tiffanie sOorio MD Work Phone: [facility] 02-16-2025 09:25-0400 Body weight 95.[address] Tiffanie Osorio MD Work Phone: [facility] 02-16-2025 09:25-0400 Diastolic blood pressure 80 mm[Hg] Dr. Tiffanie Osorio MD Work Phone: 4(638)307-469418 [place] [address] 02-16-2025 09:25-0400 Systolic blood pressure 121 mm[Hg] Dr. Tiffanie Osorio MD Work Phone: 6(163)804-873018 [place] [address] 01-29-2025 08:53-0400 Body height 172.[address] Tiffanie Osorio MD Work Phone: 1(439)834-746518 [place] [address] 01-29-2025 08:53-0400 Body mass index (BMI) [Ratio] 31.1 kg/m2 Dr. Tiffanie Osorio MD Work Phone: 2(154)065-437818 [place] [address] 01-29-2025 08:53-0400 Body weight 92.[address] Tiffanie Osorio MD Work Phone: 2(127)657-707818 [place] [address] 01-29-2025 08:53-0400 Diastolic blood pressure 72 mm[Hg] Dr. Tiffanie Osorio MD Work Phone: 0(912)024-458818 [place] [address] 01-29-2025 08:53-0400 Systolic blood pressure 121 mm[Hg] Dr. Tiffanie Osorio MD Work Phone: 3(170)555-861318 [place] [address] 01-15-2025 10:03-0400 Body height 172.[address] Tiffanie Osorio MD Work Phone: 4(041)157-534618 [place] [address] 01-15-2025 10:03-0400 Body mass index (BMI) [Ratio] 31.1 kg/m2 Dr. Tiffanie Osorio MD Work Phone: 4(541)831-310118 [place] [address] 01-15-2025 10:03-0400 Body weight 93.[address] Tiffanie Osorio MD Work Phone: 9(503)738-986718 [place] [address] 01-15-2025 10:03-0400 Diastolic blood pressure 74 mm[Hg] Dr. Tiffanie Osorio MD Work Phone: [facility] 01-15-2025 10:03-0400 Systolic blood pressure 120 mm[Hg] Dr. Tiffanie Osorio MD Work Phone: [facility] 01-01-2025 10:03-0400 Body height 172.[address] Tiffanie Osorio MD Work Phone: 0(551)655-086518 [place] [address] 01-01-2025 10:03-0400 Body mass index (BMI) [Ratio] 30.5 kg/m2 Dr. Tiffanie Osorio MD Work Phone: 1(385)579-661918 [place] [address] 01-01-2025 10:03-0400 Body weight 91.[address] Tiffanie Osorio MD Work Phone: [facility] 01-01-2025 10:03-0400 Diastolic blood pressure 81 mm[Hg] Dr. Tiffanie Osorio MD Work Phone: [facility] 01-01-2025 10:03-0400 Systolic blood pressure 123 mm[Hg] Dr. Tiffanie Osorio MD Work Phone: [facility] 12-20-2024 15:15-0400 Diastolic blood pressure 74 mm[Hg] Dr. Tiffanie Osorio MD Work Phone: 4(707)948-634318 [place] [address] 12-20-2024 15:15-0400 Systolic blood pressure 117 mm[Hg] Dr. Tiffanie Osorio MD Work Phone: [facility] 12-20-2024 14:57-0400 Body height 172.[address] Tiffanie Osorio MD Work Phone: [facility] 12-20-2024 14:57-0400 Body mass index (BMI) [Ratio] 30.5 kg/m2 Dr. Tiffanie Osorio MD Work Phone: [facility] 12-20-2024 14:57-0400 Body weight 91.[address] Tiffanie Osorio MD Work Phone: [facility] 11-13-2024 13:28-0400 Body height 172.72 cm Halle Barker CNM Work Phone: [facility] 11-13-2024 13:28-0400 Body mass index (BMI) [Ratio] 29.9 kg/m2 Hallediego Barker CNM Work Phone: [facility] 11-13-2024 13:28-0400 Body weight 89.41 kg Halle Barker CNM Work Phone: [facility] 11-13-2024 13:28-0400 Diastolic blood pressure 68 mm[Hg] Halle Barker CNM Work Phone: [facility] 11-13-2024 13:28-0400 Systolic blood pressure 110 mm[Hg] Halle Barker CNM Work Phone: [facility] 10-20-2024 14:17-0400 Body height 172.72 cm Halle Barker CNM Work Phone: [facility] 10-20-2024 14:17-0400 Body mass index (BMI) [Ratio] 29.4 kg/m2 Halle Barker CNM Work Phone: [facility] 10-20-2024 14:17-0400 Body weight 87.77 kg Hallediego Barker CNM Work Phone: [facility] 10-20-2024 14:17-0400 Diastolic blood pressure 61 mm[Hg] Halle Barker CNM Work Phone: [facility] 10-20-2024 14:17-0400 Systolic blood pressure 107 mm[Hg] Halle Barker CNM Work Phone: [facility] 09-21-2024 13:59-0400 Body mass index (BMI) [Ratio] 29 kg/m2 Hallediego Barker CNM Work Phone: [facility] 09-21-2024 13:59-0400 Body weight 86.8 kg Halle Barker CNM Work Phone: [facility] 09-21-2024 13:59-0400 Diastolic blood pressure 73 mm[Hg] Halle Barker CNM Work Phone: [facility] 09-21-2024 13:59-0400 Systolic blood pressure 122 mm[Hg] Halle Barker CNM Work Phone: [facility] 08-18-2024 13:43-0400 Body height 172.72 cm Halle Barker CNM Work Phone: [facility] 08-18-2024 13:43-0400 Body mass index (BMI) [Ratio] 29.7 kg/m2 Halle Barker CNM Work Phone: [facility] 08-18-2024 13:43-0400 Body weight 88.62 kg Halle Barker CNM Work Phone: [facility] 08-18-2024 13:43-0400 Diastolic blood pressure 57 mm[Hg] Halle Barker CNM Work Phone: [facility] 08-18-2024 13:43-0400 Systolic blood pressure 122 mm[Hg] Halle Barker CNM Work Phone: [facility] 01-15-2017 09:05-0400 BMI (Body Mass Index) 24.63 kg/m2 Maren Major LPN [facility] Work Phone: 01-15-2017 09:05-0400 Body Temperature 98.3 [degF] Maren Major LPN [facility] Work Phone: 01-15-2017 09:05-0400 BP Diastolic 52 mm[Hg] Maren Major LPN [facility] Work Phone: 01-15-2017 09:05-0400 BP Systolic 112 mm[Hg] Maren Major LPN [facility] Work Phone: 01-15-2017 09:05-0400 Height 172.72 cm Maren Major LPN [facility] Work Phone: 01-15-2017 09:05-0400 Pulse (Heart Rate) 79 /min Maren Major [facility] Work Phone: 01-15-2017 09:05-0400 Respiratory Rate 16 /min Maren Major [facility] Work Phone: 01-15-2017 09:05-0400 Weight 73.48 kg Maren Major [facility] Work Phone: Encounters Encounter Date Encounter Type Care Provider Facility Start: 03-01-2025 ambulatory Amy Meyers Facility :[facility] Start: 02-22-2025 End: 02-22-2025 ambulatory Kelsea Luz Facility:[facility] Start: 02-16-2025 End: 02-16-2025 Patient encounter procedure Amy Meyers [facility] -[facility] Work Phone: Start: 02-16-2025 End: 02-16-[address] Tiffanie Osorio MD Work Phone: -[facility] Start: 02-16-2025 End: 02-16-2025 ambulatory Amy Meyers Facility:[facility] Start: 01-29-2025 End: 01-29-2025 Patient encounter procedure Amy Meyers [facility] -[facility] Work Phone: Start: 01-29-2025 End: 01-29-[address] Tiffanie Osorio MD Work Phone: -[facility] Start: 01-15-2025 End: 01-15-[address] Tiffanie Osorio MD -[facility] Work Phone: Start: 01-15-2025 End: 01-15-[address] Tiffanie Osorio MD Work Phone: -[facility] Start: 01-01-2025 End: 01-01-[address] Tiffanie Osorio MD Work Phone: -[facility] Start: 01-01-2025 End: 01-01-2025 Patient encounter procedure Heather ORELLANA -[facility] Work Phone: Start: 12-20-2024 End: 12-20-[address] Tiffanie Osorio MD -[facility] Work Phone: Start: 12-20-2024 End: 12-20-[address] Tiffanie Osorio MD Work Phone: -[facility] Start: 12-20-2024 End: 12-20-2024 ambulatory Tiffanie Osorio Facility:[facility] Start: 11-13-2024 End: 11-13-2024 Patient encounter procedure Heather ORELLANA -[facility] Work Phone: Start: 11-13-2024 End: 11-13-2024 ambulatory Halle Barker CNM Work Phone: [facility] Work Phone: Start: 11-06-2024 End: 11-06-2024 ambulatory KELSEACOLT FERREIRA [facility] Start: 10-30-2024 End: 10-30-2024 Emergency department patient visit DR JAY RAINES MD [facility] Start: 10-23-2024 End: 10-23-2024 [facility]: 10-20-2024 End: 10-20-[address] Tiffanie Osorio MD -[facility] Work Phone: Start: 10-20-2024 End: 10-20-2024 ambulatory Halle Barker CNM Work Phone: [facility] Work Phone: Start: 09-21-2024 End: 09-21-[address] Kelsea Luz DO -[facility] Work Phone: Start: 09-21-2024 End: 09-21-2024 ambulatory Kelseacolt Callejasjamaal Conrad Facility:[facility] Start: 08-18-2024 End: 08-18-2024 ambulatory Halle Barker [facility] Work Phone: [facility] Work Phone: Start: 08-18-2024 End: 08-18-2024 Patient encounter procedure Halle Barker CNM -Lab, [facility] Start: 08-18-2024 End: 08-18-2024 Patient encounter procedure Amy Meyers CNM -[facility] Work Phone: Start: 08-18-2024 End: 08-18-2024 ambulatory Amy Meyers Facility:[facility] Start: 08-18-2024 End: 08-18-2024 ambulatory Halle Barker Facility:[facility] Start: 07-13-2024 End: 07-13-2024 ambulatory KELSEA WHITE DO Facility:[facility] Start: 05-22-2022 End: 05-27-2022 ambulatory ARNOLD DIAL Facility:[facility] Start: 08-25-2021 End: 08-25-2021 ambulatory KELSEA WHITE Facility:[facility] Start: 06-30-2021 End: 07-05-2021 ambulatory KELSEA WHITE Facility:[facility] Procedures Date Procedure Procedure Detail Performing Clinician Start: 12-20-2024 Serologic test for syphilis Dr. Tiffanie Osorio MD Work Phone: Start: 08-18-2024 Liquid based cervica l cytology screening Halle Barker [facility] Work Phone: Comment on above: NEGATIVE FOR INTRAEP ITHELIAL LESION OR MALIGNANCY. This liquid based Th inPrep(R) pap test was screened withthe use of an image guided system. The HPV DNA reflex c riteria were not met with this specimenresult therefore, no HPV testing was performed.Performed at: [facility] [employer] [id number] Director: Sonam Leon MD, Phone: [phone] at: [facility] [id number] Director: Kyra Anderson MD, Phone: [phone] Start: 08-18-2024 Hepatitis C antibody measurement Halle Barker [facility] Work Phone: Comment on above: Reactive: Presumptiv e evidence of antibodies to HCV. Follow CDC recommendations for supplemental testing.Non-Reactive: Antibodies to HCV were not detected; does not exclude the possibility of exposure to HCVReactive Results are presumptive evidence of antibodies to HCV. Follow CDC recommendations for supplemental testing.Order confirmation testing: HCV Quant by PCR testing - HCVPCR #[id number] Non Reactive: < 0.8 Equivocal: >/= 0.8 to < 1.0 Reactive: >/= 1.0The CDC requires that a reactive/equivocal HCV antibody result be sent out for confirmation. HCV Quant by PCR testing. Start: 08-18-2024 Rubella IgG measurement Halle Barker [facility] Work Phone: Comment on above: Antibody Result: Int erpretationNon-Reactive: Non- ImmuneReactive: ImmuneThe following results were obtained with the Elecs[employer] Rubella IgG assay. Results from assays of other manufacturers cannot be used interchangeably. Start: 08-18-2024 Serologic test for syphilis Halle Barker [facility] [place] Work Phone: Start: 08-18-2024 Urine culture Halle C sarita [facility] [place] Work Phone: None (qualifier value) DR KEN RAINES MD Plan of Treatment Date Care Activity Detail Author Start: 12-20-2024 CBC W Auto Different ial panel - Blood [facility] Start: 12-20-2024 Measurement of gluco se 2 hours after glucose challenge for glucose tolerance test [facility] Start: 12-20-2024 Serologic test for syphilis [facility] Start: 12-20-2024 [facility] Start: 01-15-2017 End: 01-15-2017 Appointment [facility] Work Phone: Erythrocyte mean cor puscular volume determination [facility] Hematocrit [Volume F raction] of Blood [facility] Hemoglobin [Mass/vol ume] in Blood [facility] Leukocytes [#/volume] in Blood [facility] Mean corpuscular hem oglobin concentration determination [facility] Mean corpuscular hem oglobin determination [facility] Neutrophil count [facility] Neutrophil percent d ifferential count [facility] Platelets [#/volume] in Blood [facility] Red blood cell count [facility] Red cell distributio n width determination [facility] Streptococcus agalac tiae [Presence] in Unspecified specimen by Organism specific culture [facility] Immunizations Immunization Date Immunization Notes Care Provider [facility] 01[facility]01[facility]2025 tetanus toxoid, reduced diphtheria toxoid, and acellular pertussis vaccine, adsorbed Dr. Tiffanie Osorio MD Work Phone: [facility] 04-01-2023 influenza, injectabl e, quadrivalent, contains preservative; Translations: [Fluarix PF Quadrivalent ] DR JAY RAINES MD [facility] 04-01-2022 influenza, injectabl e, quadrivalent, contains preservative; Translations: [Fluarix PF Quadrivalent ] DR JAY RAINES MD [facility] Payers Date Payer Category Payer Medicaid [id number] 2024 Private Health Insurance [id number] [id number] Self-pay 2024 Unknown [id number] 2024 Unknown [id number] 2022 Unknown [id number] 2021 Unknown [id number] 1995 Unknown [id number] 2.16.8 40.1.457327.3.579.2.627 1995 Unknown [id number] 2.16.8 40.1.898908.3.579.2.627 1995 Unknown [id number] 2.16.8 40.1.733734.3.579.2.627 1995 Unknown [id number] 2.16.8 40.1.865742.3.579.2.627 1995 Unknown [id number] 2.16. 840.1.346903.3.579.2.479 1995 Unknown [id number] 2.16. 840.1.503311.3.579.2.479 1995 Unknown [id number] 2.16. 840.1.302696.3.579.2.627 1995 Unknown [id number] 2.16.8 40.1.174753.3.579.2.627 Unknown [id number] 2.16.8 40.1.233269.3.579.2.462 Unknown [id number] 2.16.8 40.1.458794.3.579.2.462 Unknown [id number] 2.16.8 40.1.323161.3.579.2.462 Unknown [id number] 2.16.8 40.1.697630.3.579.2.462 Unknown [id number] 2.16.8 40.1.852013.3.579.2.462 Unknown [id number] 2.16.8 40.1.093366.3.579.2.462 Unknown [id number] 2.16.8 40.1.294167.3.579.2.462 Unknown [id number] 2.16.8 40.1.795055.3.579.2.462 Unknown [id number] 2.16.8 40.1.227895.3.579.2.462 Unknown [id number] 2.16.8 40.1.075185.3.579.2.462 Unknown [id number] 2.16.8 40.1.392750.3.579.2.462 Unknown [id number] 2.16.8 40.1.239045.3.579.2.462 Unknown [id number] 2.16.8 40.1.643890.3.579.2.462 Unknown [id number] 2.16.8 40.1.170083.3.579.2.462 Social History Date Type Detail Facility Start: 07-23-2020 End: 08-04-2024 Tobacco smoking status NHIS Never smoked tobacco (finding) [facility] Start: 07-16-2005 End: 08-29-2024 Sex Female (finding) [facility] Start: 1995 Sex Assigned At Female [facility] Sexual Orientation [facility] Clinical Notes 05-25-2022 to 02-16-2025 Note Date & Type Note Facility 02-16-2025 Progress note [facility] 01-29-2025 Progress note [facility] 01-15-2025 Progress note [facility] 01-01-2025 Progress note [facility] 12-20-2024 Progress note [facility] 12-20-2024 Progress note Note Date/Time December 20, 2024 3:17pm [facility] [address], [address] [place] [address] OFFICE VISIT Date of Service: 12/20/24 MR#: [id number] Acct: [id number] Name: RADHA DOUGLAS Rep #: [id number] : 1995 Provider: Dr. Reggie Osorio MD Age/Sex: 29/F Location: [facility] Status: Signed Intake Vital Signs 10/20/24 14:17 11/13/24 13:28 12/20/24 14:57 12/20/24 15:15 Height 5 ft 8 in 5 ft 8 in 5 ft 8 in Weight: 201 lb BMI 30.5 BP 117/7 L 117/74 Intake Visit Reasons: 28 WK OB GLUCOSE/RHOGAM Clerk To Justice Required: No Is patient in pain?: No Allergies No Known Allergies Allergy (Unverified 12/20/24 14:59) Medications ?Medication ?Instructions ?Recorded ?Confirmed ?Type multivitamin no.47-iron fum 27 cap PO 08/04/24 5 History mg-folate no.1 1 mg-dha 300 mg capsule (PNV-DHA) pyridoxine (vitamin B6) 10 mg 10 mg PO TID 08/04/24 History tablet Last Menstrual Period: 06/07/24 Zika: Zika virus screening: Negative : No PFSH PFSH Medical History Seasonal allergies Family History Mother Cancer, Onset Age: 19 cervical Breast cancer, Onset Age: 35 Grandmother Diabetes Maternal Type 1 Social History adopted: No household members: spouse and children housing: house number of children: 1 current occupational status: employed 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 pets and animals: Yes pets and animals: dog(s) history of recent travel: No sexually active: Yes Smoking Status: Never smoker alcohol intake: never substance use type: does not use well-balanced diet: daily or most days caffeine: No eating out: 1-3 times/week during the past year weight has: remained stable what type of physical activity do you participate in: none cristobal/mormon: Yarsanism seatbelt use: always do you feel safe at home: Yes additional social history: Julio History 2 Elective abortions Hx Para 1 Spontaneous abortions Hx # Term Pregnancies Ectopic pregnancies Hx # Pregnancies Multiple births # of living children 1 Past Pregnancies Del. Date Name GA/Weeks Outcome Route Bth Weight Infant Gen Labor Lgth Anesthesia Del Locatn Provider FOB 12/15/20 Elise 37 live - full term 7#8oz Male epidural Mónica Tiradokyler Kim HPI 28 WK OB GLUCOSE/RHOGAM Details: RADHA DOUGLAS is a 29 year old who presents for routine OB visit. OB Visit DIANDRA Calculator Estimated Delivery Date Method Current WG Current Estimate 03/14/25 LMP (Certain) 28w 0d Other Estimates 03/20/25 Ultrasound #1 27w 1d Expected Delivery Route/Plan Labor Preferences- CB/BF classes: [] labor support person: [] labor intervention preferences: [] pain management options preferred: [] cut cord/dad catch: [] : [] PP control planned: [] discussed possible routes of delivery and associated risks: [] special requests: [] Specific Issue/Plans Covid status: [] Flu vaccine: [] Tdap vaccine: [] Rhogam: [] LARC form signed: [] Problem list reviewed and updated with the most current plan of care details and appropriate orders placed. Relevant counseling for the gestational age provided. Continue routine care and follow up unless otherwise noted in visit notes/problem list details Initial Weight: 195 lb Date -?-?-?-?-?-?-?-?-?-?-?-?- EGA Weight BP Urine Prot -?-?-?-?-?-?-?-?-?-?-?-?- Glucose FHR FuHt Pres Dilation -?-?-?-?-?-?-?-?-?-?-?-?- Effaced St Visit Note 08/18/24 -?-?-?-?-?-?-?-?-?-?-?-?- 10w 2d 195 lb 6 oz (+6 oz) 122/57 -?-?-?-?-?-?-?-?-?-?-?-?- 178 -?-?-?-?-?-?-?-?-?-?-?-?- KW- CRL 2.63 cm. measuring 9.3 weeks. Declines NIPT. 09/21/24 -?-?-?-?-?-?-?-?-?-?-?-?- 15w 1d 191 lb 6 oz (-3 lb 10 oz) 122/73 Negative -?-?-?-?-?-?-?-?-?-?-?-?- Negative 145 -?-?-?-?-?-?-?-?-?-?-?-?- JV- no cramping or spotting. has the complaint of shortness of breath at times. has some air hunger of complaints. 10/20/24 -?-?-?-?-?-?-?-?-?-?-?-?- 19w 2d 193 lb 8 oz (-1 lb 8 oz) 107/61 Negative -?-?-?-?-?-?--?-?-?-?-?-?- Negative 145 -?-?-?-?-?-?-?-?-?-?-?-?- Sm- no vb crampi ng 11/13/24 -?-?-?-?-?-?-?-?-?-?-?-?- 22w 5d 197 lb 2 oz (+2 lb 2 oz) 110/68 Negative -?-?-?-?-?-?-?-?-?-?-?-?- Negative 143 -?-?-?-?-?-?-?-?-?-?-?-?- MH-No VB. Reji Whitman. Some constipation/new med list given and reviewed 12/20/24 -?-?-?-?-?-?-?-?-?-?-?-?- 28w 0d 201 lb (+6 lb) 117/7 117/74 Negative -?-?-?-?-?-?-?-?-?-?-?-?- Negative 140 28 -?-?-?-?-?-?-?-?-?-?-?-?- SM- n ovb lof go od fm no reuglar ctx cbc gct rhogam ACOG First Trimester First Trimester: Desire for , Alcohol, Tobacco Cessation, Illicit/Recreational Drug/Substance Use, Intimate Partner Violence, Barriers to care, Anticipated Course of Care, Use of Any medications, Sexual activity, Exercise, Dental Care, Sauna/Hot tub use, Seat Belt use, Childbirth classes/Hospital facilities, Travel, Indications for Ultrasound and Screening for Aneuploidy; Discussed Unstable Housing, Discussed Communication Barriers, Discussed Environmental/Work Hazards, Discussed Toxoplasmosis Precations and Discussed Second Trimester Second Trimester: Signs and Symptoms of Labor, Selecting a care provider, Reproductive Life Planning & Contreception, Care Planning, Depression/Anxiety and Intimate Partner Violence; Discussed Tobacco Cessation Third Trimester Third Trimester: Pain Management Plans, Labor support person(s), Immediate Larc, Signs and Symptoms of Preeclampsia, Feeding No , Education and Family Medical Leave or Disability Forms Office Procedures Injections Is this a patient provided medication?: No Office Meds RhoGAM Ultra-Filtered PLUS 1,500 unit (300 mcg) intramuscular syringe Performing Provider: Tiffanie Osorio MD Performing Location: [facility] Administered by: Heather Moy on 12/20/24 15:10 Dose Route Admin Location Dispensed Lot Number Expiration Date NDC Tabular Typist 1,500 unit IM BWC 1 ea [id number] 12/04/26 [id number] [facility] [employer] Medical Results POC Urinalysis 2 Dip (Clinic) Office Urine Glucose Negative Last Edit by Heather Moy on 12/20/24 15:13 Office Urine Protein Negative Last Edit by Heather Moy on 12/20/24 15:13 Coding Level of Care Code OB Routine Diagnoses Obesity affecting in second trimester, unspecified obesity type O99.212 Obesity type affecting : unspecified obesity Trimester: second trimester FH: breast cancer in first degree relative Z80.3 Encounter for supervision of other normal in second trimester Z34.82 Normal : other normal Trimester: second trimester 28 weeks gestation of Z3A.28 Weeks of gestation: 28 weeks Hx of depression, currently O99.891; Z86.59 Rh negative state in antepartum period O26.899; Z67.91 Assessment and Plan Assessment and Plan (1) Obesity affecting : Status: Acute Qualifiers: Obesity type affecting : unspecified obesity Trimester: second trimester Qualified Code(s): O99.212 - Obesity complicating , second trimester Comment: [id number] (2) FH: breast cancer in first degree relative: Status: Acute Comment: Mother 35yo-, Unknown if genetic testing was done (3) Supervision of normal : Status: Acute Qualifiers: Normal : other normal Trimester: second trimester Qualified Code(s): Z34.82 - Encounter for supervision of other normal , second trimester Comment: PRR, , DIANDRA 03/14/25, ADAM Olivares, Julio (4) : Status: Acute Qualifiers: Weeks of gestation: 28 weeks Qualified Code(s): Z3A.28 - 28 weeks gestation of Comment: declined NIPT & Carrier testing. low normal CL-repeat US 2 weeks. (5) Hx of depression, currently : Status: Acute (6) Rh negative state in antepartum period: Status: Acute Comment: O-, Rhogam @ 28wks( is O+) Orders: Orders CBC W/Diff, Automated Today Z34.82 - Encounter for supervision of other normal , second trimester Type & Screen Today O26.899 - Other specified related conditions, unspecified trimester, Z34.82 - Encounter for supervision of other normal , second trimester, Z67.91 - Unspecified blood type, Rh negative Glucose Challenge Gest 1H 50g Today Z13.1 - Encounter for screening for diabetes mellitus, Z34.82 - Encounter for supervision of other normal , second trimester HIV Today Z34.82 - Encounter for supervision of other normal , second trimester Syphilis Antibodies Today Z34.82 - Encounter for supervision of other normal , second trimester Rhogam Injection Today O26.899 - Other specified related conditions, unspecified trimester, Z67.91 - Unspecified blood type, Rh negative POC Urinalysis 2 Dip (Clinic) Today 12/20/24 6111 <Electronically signed by Tiffanie shepherd MD> Date _ Tiffanie Osorio MD Cosigner Signature: Date (if applicable) CC: ~ [facility] Work Phone: 1(188) 811-807605-26-2025 Hospital Discharge instructions Patient Education 10/30/2024 16:29:54 Vomiting (Adult) Vomiting (Adult) Vomiting is a common symptom that may be due to different causes. These include gastroenteritis (stomach flu), food poisoning and gastritis. There are other more serious causes of vomiting which may be hard to diagnose early in the illness. Therefore, it is important to watch for the warning signs listed below. The main danger from repeated vomiting is dehydration. This is due to excess loss of water and minerals from the body. When this occurs, your body fluids must be replaced. Home care If symptoms are severe, rest at home for the next 24 hours. Because your symptoms may be from an infection, wash your hands often and well. If soap and water are not available, use alcohol-based carton counter feeder to keep from spreading the infection to others. Wash your hands for at least 20 seconds. Humming the happy birthday song twice while you wash is aneasy way to make sure you've washed for 20 seconds. Wash your hands after using the toilet, before and after preparing food, before eating food, after changing a diaper, cleaning a wound, caring for a sick person, and blowing your nose, coughing, or sneezing. You should also wash your hands after caring for someone who is sick, touching pet food, ortreats, and touching an animal, or animal waste. You may use acetaminophen or NSAID medicines like ibuprofen or naproxen to control fever, unless another medicine was prescribed. If you have chronic liver or kidney disease or ever had a stomach ulcer or gastrointestinal bleeding, talk with your doctor before using these medicines. Aspirin should never be used in anyone under 18 years of age who is ill with a fever. It may cause severe liver damage. Don't use NSAID medicines if you are already taking one for another condition (like arthritis) or are on aspirin (such as for heart disease, or after a stroke) Don't use tobacco and or drink alcohol, which may worsen your symptoms. If medicines for vomiting were prescribed, take as directed. Once vomiting stops, then follow these guidelines: During the first 12 to 24 hours follow the diet below: Fruit juices. Apple, grape juice, clear fruit drinks, and electrolyte replacement drinks. Beverages. Soft drinks without caffeine; mineral water (plain or flavored), decaffeinated tea and coffee. Soups. Clear broth and bouillon Desserts. Plain gelatin, ice pops, and fruit juice bars. As you feel better, you may add 6 to 8 ounces of yogurt per day. During the next 24 hours you may add the following to the above: Hot cereal, plain toast, bread, rolls, crackers Plain noodles, rice, mashed potatoes, chicken noodle or rice soup Unsweetened canned fruit such as applesauce, bananas (avoid pineapple and citrus) Limit caffeine and chocolate. No spices or seasonings except salt. During the next 24 hours: Gradually resume a normal diet, as you feel better and your symptoms lessen. Follow-up care Follow up with your healthcare provider, or as advised. When to seek medical advice Call your healthcare provider right away if any of these occur: Constant right-sided lower belly pain or increasing general belly pain Continued vomiting (unable to keep liquids down) for 24 hours Vomiting blood or coffee grounds Swollen belly Frequent diarrhea (more than 5 times a day); blood (red or black color) or mucus in diarrhea Reduced urine output or extreme thirst Weakness, dizziness or fainting Unusually drowsy or confused Fever of 100.4 F (38 C) oral or higher, or as directed Yellow color of the eyes or skin 0626-1246 [employer]. [address] [place] [address], [place] [address]. All rights reserved. This information is not intended as a substitute for professional medical care. Always follow yourhealthcare professional's instructions. 10/30/2024 16:29:52 Self-Care for Vomiting and Diarrhea Self-Care for Vomiting and Diarrhea Vomiting and diarrhea can make you miserable. Your stomach and bowels are reacting to an irritant. This might be food, medicine, or a viral stomach flu. Vomiting and diarrhea are two ways your body can remove the problem from your system. Nausea is a symptom that discourages you from eating. This gives your stomach and bowels time to recover. To get back to normal, start with self-care to ease your discomfort. Drink liquids Drink or sip liquids to avoid losing too much fluid (dehydration): Clear liquids such as water or broth are the best choices. Don't have drinks with a lot of sugar in them, such as juices and sodas. These can make diarrhea worse. If you have severe vomiting, don't drink sport drinks, such as electrolyte solutions. These don't have the right mix of water, sugar, and minerals. They can also make the symptoms worse. In this situation, commercially available oral rehydration solutions are best. Suck on ice chips if the thought of drinking something makes you queasy. When you re able to eat again Tips include the following: As your appetite comes back, you can resume your normal diet. Ask your healthcare provider if you should stay away from any foods. Medicines Know the following about medicines: Vomiting and diarrhea are ways your body uses to rid itself of harmful substances such as bacteria.Don't use antidiarrheal or antivomiting (antiemetic) medicines unless your healthcare provider tells you to do so. Aspirin, medicine with aspirin, and many aspirin substitutes can irritate your stomach. So don't use them when you have stomach upset. Certain prescription and ddnk-mbq-qvrxyqr medicines can cause vomiting and diarrhea. Talk with yourhealthcare provider about any medicines you take that may be causing these symptoms. Certain rfsk-ntu-hyblkph antihistamines can help control nausea. Other medicines can help soothe stomach upset. Ask your healthcare provider which medicines may help you. When to call your healthcare provider Call your healthcare provider if you have: Bloody or black vomit or stools Severe, steady belly pain Vomiting with a severe headache or stiff neck Vomiting after a head injury Vomiting and diarrhea together for more than an hour An inability to hold down even sips of liquids for more than 12 hours Vomiting that lasts more than 24 hours Severe diarrhea that lasts more than 2 days Fever of 100.4 F (38.0 C) or higher, or as directed by your healthcare provider Yellowish color to your skin or the whites of your eyes Inability to urinate. In infants and young children, not making wet diapers. [phone] [employer]. [address] [place] [address]. All rights reserved. This information is not intended as a substitute for professional medical care. Always follow yourhealthcare professional's instructions. Follow Up Care 10/30/2024 12:35:31 With:Go to emergency room if symptoms worsen Address:Unknown When:2-4 days With:KELSEA WHITE DO Address: [address] [place] [phone] When:2-4 days [facility] 05-26-2025 Emergency department Discharge summary Discharge Instructions Thank you for allowing [facility] to assist you with your healthcare needs. The following is importantdischarge information regarding your hospital visit. Diagnosis from Today's Visit Vomiting during What to Do Next Instructions from Your Care Team You have been evaluated in the Emergency Department today for abdominal pain. Your evaluation did not show evidence of medical conditions requiring emergent intervention at this time. Please schedule an appointment with your primary care physician. Return to the Emergency Department if you experience worsening or uncontrolled pain, fevers 100.4 For greater, recurrent vomiting, inability to tolerate food or fluids by mouth, bloody stools or vomit, black or tarry stools, or any other concerning symptoms. Thank you for choosing us for your care. Discharge Return to Work, School, or Sports (Return to Work, School, or Sports) - Ordered -- within 1-2 days, May return to: work, 10/30/24 16:29:00 EDT Post Acute Orders No qualifying data available. You Need to Schedule the Following Appointments Follow Up with Go to emergency room if symptoms worsen When:Within 2-4 days Follow Up with KELSEA WHITE DO When:Within 2-4 days Where:[address] [place] [address]- [phone] Allergies [facility] Medications Please ask your primary doctor or pharmacist before taking any other medication not listed, including over the counter drugs, herbal medications, vitamins and or supplements as they may interact withyour home medications. What How Much When Instructions Last Dose New ondansetron (Zofran 4 mg oral tablet) 1 tab(s) by mouth Every 8 hours as needed for Nausea/Vomiting Duration: 3 Days Printed Prescription Please take this list to your next doctor s visit. Bring all medications you take, including over the counter medications, herbals and other supplements with you to your doctor s visit. Patients and families are reminded to discard old lists and to update any records with all medication providers or retail pharmacies. Education Materials Vomiting (Adult) Vomiting is a common symptom that may be due to different causes. These include gastroenteritis (stomach flu), food poisoning and gastritis. There are other more serious causes of vomiting which may be hard to diagnose early in the illness. Therefore, it is important to watch for the warning signs listed below. The main danger from repeated vomiting is dehydration. This is due to excess loss of water and minerals from the body. When this occurs, your body fluids must be replaced. Home care If symptoms are severe, rest at home for the next 24 hours. Because your symptoms may be from an infection, wash your hands often and well. If soap and water are not available, use alcohol-based carton counter feeder to keep from spreading the infection to others. Wash your hands for at least 20 seconds. Humming the happy birthday song twice while you wash is aneasy way to make sure you've washed for 20 seconds. Wash your hands after using the toilet, before and after preparing food, before eating food, after changing a diaper, cleaning a wound, caring for a sick person, and blowing your nose, coughing, or sneezing. You should also wash your hands after caring for someone who is sick, touching pet food, ortreats, and touching an animal, or animal waste. You may use acetaminophen or NSAID medicines like ibuprofen or naproxen to control fever, unless another medicine was prescribed. If you have chronic liver or kidney disease or ever had a stomach ulcer or gastrointestinal bleeding, talk with your doctor before using these medicines. Aspirin should never be used in anyone under 18 years of age who is ill with a fever. It may cause severe liver damage. Don't use NSAID medicines if you are already taking one for another condition (like arthritis) or are on aspirin (such as for heart disease, or after a stroke) Don't use tobacco and or drink alcohol, which may worsen your symptoms. If medicines for vomiting were prescribed, take as directed. Once vomiting stops, then follow these guidelines: During the first 12 to 24 hours follow the diet below: Fruit juices. Apple, grape juice, clear fruit drinks, and electrolyte replacement drinks. Beverages. Soft drinks without caffeine; mineral water (plain or flavored), decaffeinated tea and coffee. Soups. Clear broth and bouillon Desserts. Plain gelatin, ice pops, and fruit juice bars. As you feel better, you may add 6 to 8 ounces of yogurt per day. During the next 24 hours you may add the following to the above: Hot cereal, plain toast, bread, rolls, crackers Plain noodles, rice, mashed potatoes, chicken noodle or rice soup Unsweetened canned fruit such as applesauce, bananas (avoid pineapple and citrus) Limit caffeine and chocolate. No spices or seasonings except salt. During the next 24 hours: Gradually resume a normal diet, as you feel better and your symptoms lessen. Follow-up care Follow up with your healthcare provider, or as advised. When to seek medical advice Call your healthcare provider right away if any of these occur: Constant right-sided lower belly pain or increasing general belly pain Continued vomiting (unable to keep liquids down) for 24 hours Vomiting blood or coffee grounds Swollen belly Frequent diarrhea (more than 5 times a day); blood (red or black color) or mucus in diarrhea Reduced urine output or extreme thirst Weakness, dizziness or fainting Unusually drowsy or confused Fever of 100.4 F (38 C) oral or higher, or as directed Yellow color of the eyes or skin 7123-7706 [employer]. [address] [place] [address]. All rights reserved. This information is not intended as a substitute for professional medical care. Always follow yourhealthcare professional's instructions. Self-Care for Vomiting and Diarrhea Vomiting and diarrhea can make you miserable. Your stomach and bowels are reacting to an irritant. This might be food, medicine, or a viral stomach flu. Vomiting and diarrhea are two ways your body can remove the problem from your system. Nausea is a symptom that discourages you from eating. This gives your stomach and bowels time to recover. To get back to normal, start with self-care to ease your discomfort. Drink liquids Drink or sip liquids to avoid losing too much fluid (dehydration): Clear liquids such as water or broth are the best choices. Don't have drinks with a lot of sugar in them, such as juices and sodas. These can make diarrhea worse. If you have severe vomiting, don't drink sport drinks, such as electrolyte solutions. These don't have the right mix of water, sugar, and minerals. They can also make the symptoms worse. In this situation, commercially available oral rehydration solutions are best. Suck on ice chips if the thought of drinking something makes you queasy. When you re able to eat again Tips include the following: As your appetite comes back, you can resume your normal diet. Ask your healthcare provider if you should stay away from any foods. Medicines Know the following about medicines: Vomiting and diarrhea are ways your body uses to rid itself of harmful substances such as bacteria.Don't use antidiarrheal or antivomiting (antiemetic) medicines unless your healthcare provider tells you to do so. Aspirin, medicine with aspirin, and many aspirin substitutes can irritate your stomach. So don't use them when you have stomach upset. Certain prescription and hjpn-pbe-bdyxdtq medicines can cause vomiting and diarrhea. Talk with yourhealthcare provider about any medicines you take that may be causing these symptoms. Certain uhqs-qly-fbwyjcy antihistamines can help control nausea. Other medicines can help soothe stomach upset. Ask your healthcare provider which medicines may help you. When to call your healthcare provider Call your healthcare provider if you have: Bloody or black vomit or stools Severe, steady belly pain Vomiting with a severe headache or stiff neck Vomiting after a head injury Vomiting and diarrhea together for more than an hour An inability to hold down even sips of liquids for more than 12 hours Vomiting that lasts more than 24 hours Severe diarrhea that lasts more than 2 days Fever of 100.4 F (38.0 C) or higher, or as directed by your healthcare provider Yellowish color to your skin or the whites of your eyes Inability to urinate. In infants and young children, not making wet diapers. 9586-1586 [employer]. [address] [place] [address]. All rights reserved. This information is not intended as a substitute for professional medical care. Always follow yourhealthcare professional's instructions. Additional Information VACCINATE! IT SAVES LIVES! Members of the community who have not yet received the COVID-19 vaccine and would like to receive it can visit one of [facility] vaccine clinics. There are many vaccine clinic locations within the [facility]. For locations and available times, please visit www.gettheshot.coronavirus.[place].gov/. It is important to note that some COVID mobile vaccine clinics are held outdoors and may be canceled in rainy or stormy conditions. To learn more about pediatric vaccinations (ages 5-11), we invite you to visit the [facility] webpage. https://www.[email or web address].org/pages/8892-Ijxil-Rcggygxrihq-Wzcuatsddm-Vavtq-Tib stions.htmlTo learn more about the COVID-19 vaccine, we invite you to visit the CDC website for a list of frequently asked questions. https://www.cdc.gov/coronavirus/2019-ncov/vaccines/faq.html [employer] Patient Portal Access Instructions: Stay connected with your healthcare team and access your personal medical information anytime with the [employer] Patient Portal. If you would like a full copy of your medical records please contact the [facility] Medical Records Department Wednesday through Wednesday between 8a.m. and 4:30p.m. Please follow the directions below to access the portal: 1.Access the email account you provided upon registration to the hospital.2.Look for an invitation email from [facility].3.Open the email and access the invitation link: Accept Invitation to [employer]4.Fill in the required judd to create your account. Sign into [email or web address] with your username and password that you created in the above steps to stay up to date. You can then view a summary of results, a summary of your visits, and the ability to download your summaries to your computer or send the information securely to a physician. Remember that your healthcare information is confidential, so carefully consider who you will allow to register on the [employer] Patient Portal for access to your information. You can also access the [employer] Patient Portal on the [employer]. Simply click on Health Records under [employer] and then click on the [employer] logo. HOW TO SAFELY DISPOSE OF PRESCRIPTION MEDICATIONS Please use one of the following methods to safely dispose of your unused medications. 1.Use a drug disposal kit: the drug disposal pouch allows you to safely discard your old and unuseddrugs. Ask your nurse to give you one when you are discharged.2.Visit a local take-back location: Many local pharmacies and police departments have programs that collect old and unwanted prescriptiondrugs. Call your local pharmacy or go to http://bit.Mayday PAC/9G3Tz6e to find one close to you.3.Make use of household items: Use cat litter or old coffee grounds to dispose medications if other options arenot available. Mix your drugs with these household products, seal them in an airtight container andthrow it into the garbage. Call [facility]: [phone] to be sure your drugs can be disposed of in this way. Some medicines may require a different approach.4.Never flush your medications down the toilet. IF YOU HAVE BEEN PRESCRIBED AN OPIOIDS FOR PAIN If you have been prescribed an opioid (such as hydrocodone, oxycodone or morphine), it is critical to understand the possible side effects and risks of opioid pain medications. Even when taken as directed, opioids can have several side effects including: Tolerance, meaning you might need to take more of a medication for the same pain relief. Nausea, vomiting and/or constipation. Sleepiness, dizziness, dry mouth, confusion, depression or itching. Physical dependence, meaning you have withdrawal symptoms when a medication is stopped ? this can develop within a few days. KNOW YOUR RESPONSIBILITIES It is important to know exactly how much and how often to take the opioid pain medications you are prescribed. Never take opioids in higher amounts or more often than prescribed. Do not combine opioids with alcohol or other drugs that cause drowsiness, such as benzodiazepines, also known as benzos,including diazepam and alprazolam, muscle relaxants or sleep aids. Never sell or share prescriptionopioids. This is illegal. Store opioids in a secure place and out of reach of others (including children, family, friends and visitors). The last page(s) of this document has been signed and retained as a CHART COPY Signatures Patient Education Materials Vomiting (Adult) Self-Care for Vomiting and Diarrhea Medication Leaflets My discharge plan and instructions have been reviewed and explained to me and I,RADHA DOUGLAS M understand my current condition and have read and understand these discharge instructions. I have received a written copy of the plan/instructions. If I have questions, I am aware that I should contact my doctor. 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: Date/Time: Relationship to Patient: Witness Name/Signature: [id number]* Diagnosis Onset Date Resolution Status Admit Date FH: breast cancer in first degree relative acute October 20, 2024 2 :14pm Hx of depression, currently acute October 20 2:14pm Obesity affecting acute October 20, 2024 2:14pm acute October 20, 2024 2:14pm Rh negative state in antepar vinay period acute October 20, 2024 2 :14pm Supervision of normal acut e October 20, 2024 2:14pm FH: breast cancer in first degree relative acute November 13, 2024 1 :25pm Hx of depression, currently acute November 13 1:25pm Obesity affecting acute November 13, 2024 1:25pm acute November 13, 2024 1:25pm Rh negative state in antepar vinay period acute November 13, 2024 1 :25pm Supervision of normal acut e November 13, 2024 1:25pm FH: breast cancer in first degree relative acute December 20, 2024 2:55pm Hx of depression, currently acute December 20 2:55pm Obesity affecting acute December 20, 2024 2:55pm acute December 20 2:55pm Rh negative state in antepar vinay period acute December 20, 2024 2:55pm Supervision of normal acut e December 20, 2024 2:55pm Hx of depression, currently acute January 01 10:02am Obesity affecting acute January 01, 2025 10:02am acute January 01 10:02am Rh negative state in antepar vinay period acute January 01, 2025 10:02am Supervision of normal acut e January 01, 2025 10:02am FH: breast cancer in first degree relative acute January 15 10:01am Hx of depression, currently acute January 15, 2025 10:01am Obesity affecting acute January 15, 2025 10:01am acute January 15, 2 025 10:01am Rh negative state in antepar vinay period acute January 15 10:01am Supervision of normal acut e January 15, 2025 10:01am FH: breast cancer in first degree relative acute January 29 8:48am Hx of depression, currently acute January 29, 2025 8:48am Obesity affecting acute January 29, 2025 8:48am acute January 29, 2 025 8:48am Rh negative state in antepar vinay period acute January 29 8:48am Supervision of normal acut e January 29, 2025 8:48am [facility] Work Phone: 1(722) 354-528505-16-2025 Evaluation note* Diagnosis Onset Date Resolution Status Admit Date FH: breast cancer in first degree relative acute October 20, 2024 2 :14pm Hx of depression, currently acute October 20 2:14pm Obesity affecting acute October 20, 2024 2:14pm acute October 20, 2024 2:14pm Rh negative state in antepartum period acute October 20, 2024 2:14pm Supervision of normal acute October 20, 2024 2 :14pm FH: breast cancer in first degree relative acute November 13, 2024 1 :25pm Hx of depression, currently acute November 13 1:25pm Obesity affecting acute November 13, 2024 1:25pm acute November 13, 2024 1:25pm Rh negative state in antepartum period acute November 13, 2024 1:25pm Supervision of normal acute November 13, 2024 1 :25pm FH: breast cancer in first degree relative acute December 20, 2024 2:55pm Hx of depression, currently acute December 20 2:55pm Obesity affecting acute December 20, 2024 2:55pm acute December 20 2:55pm Rh negative state in antepartum period acute December 20 2:55pm Supervision of normal acute December 20, 2024 2:55pm Hx of depression, currently acute January 01 10:02am Obesity affecting acute January 01, 2025 10:02am acute January 01 10:02am Rh negative state in antepartum period acute January 01 10:02am Supervision of normal acute January 01, 2025 10:02am FH: breast cancer in first degree relative acute January 15 10:01am Hx of depression, currently acute January 15, 2025 10:01am Obesity affecting acute January 15, 2025 10:01am acute January 15, 025 10:01am Rh negative state in antepartum period acute January 15 025 10:01am Supervision of normal acute January 15 10:01am FH: breast cancer in first degree relative acute January 29 8:48am Hx of depression, currently acute January 29, 2025 8:48am Obesity affecting acute January 29, 2025 8:48am acute January 29, 8:48am Rh negative state in antepartum period acute January 29 8:48am Supervision of normal acute January 29 8:48am FH: breast cancer in first degree relative acute February 16, 2025 9:21am Hx of depression, currently acute February 9:21am Obesity affecting acute February 16, 2025 9:21am acute February 9:21am Rh negative state in antepartum period acute February 9:21am Supervision of normal acute February 16, 2025 9:21am [facility] Work Phone: 1(404) 442-886905-16-2025 [facility] [address] [place] [address], [address] [place] [address] OFFICE VISIT Date of Service: 10/20/24 MR#: [id number] Acct: [id number] Name: RADHA DOUGLAS Rep #: [id number] : 1995 Provider: Dr. Reggie Osorio MD Age/Sex: 29/F Location: [facility] Status: Signed Intake Vital Signs 08/18/24 13:43 09/21/24 13:59 10/20/24 14:17 Height 5 ft 8 in 5 ft 8 in 5 ft 8 in Weight: 193 lb 8 oz BMI 29.4 BP 107/61 Intake Visit Reasons: 18wk ob Clerk To Justice Required: No Is patient in pain?: No Feel stressed/tense/nervous/anxious/difficulty sleeping: not at all Allergies No Known Allergies Allergy (Unverified 10/20/24 14:18) Medications ?Medication ?Instructions ?Recorded ?Confirmed ?Type multivitamin no.47-iron fum 27 cap PO 08/04/24 5 History mg-folate no.1 1 mg-dha 300 mg capsule (PNV-DHA) pyridoxine (vitamin B6) 10 mg 10 mg PO TID 08/04/24 History tablet Last Menstrual Period: 06/07/24 Zika: Zika virus screening: Negative : No PFSH PFSH Medical History Seasonal allergies Family History Mother Cancer, Onset Age: 19 cervical Breast cancer, Onset Age: 35 Grandmother Diabetes Maternal Type 1 Social History adopted: No household members: spouse and children housing: house number of children: 1 current occupational status: employed 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 pets and animals: Yes pets and animals: dog(s) history of recent travel: No sexually active: Yes Smoking Status: Never smoker alcohol intake: never substance use type: does not use well-balanced diet: daily or most days caffeine: No eating out: 1-3 times/week during the past year weight has: remained stable what type of physical activity do you participate in: none cristobal/mormon: Yarsanism seatbelt use: always do you feel safe at home: Yes additional social history: Julio History 2 Elective abortions Hx Para 1 Spontaneous abortions Hx # Term Pregnancies Ectopic pregnancies Hx # Pregnancies Multiple births # of living children 1 Past Pregnancies Del. Date Name GA/Weeks Outcome Route Bth Weight Gen Labor Lgth Anesthesia Del Locatn Provider FOB 12/15/20 [facility] 37 live - full term 7#8oz Male epidural Mónicaazael Kim HPI 18wk ob Details: RADHA DOUGLAS is a 29 year old who presents for routine OB visit. OB Visit DIANDRA Calculator Estimated Delivery Date Method Current WG Current Estimate 03/14/25 LMP (Certain) 19w 2d Other Estimates 03/20/25 Ultrasound #1 18w 3d Expected Delivery Route/Plan Labor Preferences- CB/BF classes: [] labor support person: [] labor intervention preferences: [] pain management options preferred: [] cut cord/dad catch: [] : [] PP control planned: [] discussed possible routes of delivery and associated risks: [] special requests: [] Specific Issue/Plans Covid status: [] Flu vaccine: [] Tdap vaccine: [] Rhogam: [] LARC form signed: [] Problem list reviewed and updated with the most current plan of care details and appropriate ordersplaced. Relevant counseling for the gestational age provided. Continue routine care and follow up unless otherwise noted in visit notes/problem list details Initial Weight: 195 lb Date -?-?-?-?-?-?-?-?-?-?-?-?- EGA Weight BP Urine Prot -?-?-?-?-?-?-?-?-?-?-?-?- Glucose FHR FuHt Pres Dilation -?-?-?-?-?-?-?-?-?-?-?-?- Effaced St Visit Note 08/18/24 -?-?-?-?-?-?-?-?-?-?-?-?- 10w 2d 195 lb 6 oz (+6 oz) 122/57 -?-?-?-?-?-?-?-?-?-?-?-?- 178 -?-?-?-?-?-?-?-?-?-?-?-?- KW- CRL 2.63 cm. measuring 9.3 weeks. Declines NIPT. 09/21/24 -?-?-?-?-?-?-?-?-?-?-?-?- 15w 1d 191 lb 6 oz (-3 lb 10 oz) 122/73 Negative -?-?-?-?-?-?-?-?-?-?-?-?- Negative 145 -?-?-?-?-?-?-?-?-?-?-?-?- JV- no cramping or spotting. has the complaint of shortness of breath at times. has some air hunger of complaints. 10/20/24 -?-?-?-?-?-?-?-?-?-?-?-?- 19w 2d 193 lb 8 oz (-1 lb 8 oz) 107/61 Negative -?-?-?-?-?-?-?-?-?-?-?-?- Negative 145 -?-?-?-?-?-?-?-?-?-?-?-?- Sm- no vb crampi ng ACOG First Trimester First Trimester: Desire for , Alcohol, Tobacco Cessation, Illicit/Recreational Drug/Substance Use, Intimate Partner Violence, Barriers to care, Anticipated Course of Care, Use of Any medications, Sexual activity, Exercise, Dental Care, Sauna/Hot tub use, Seat Belt use, Childbirth c lasses/Hospital facilities, Travel, Indications for Ultrasound and Screening for Aneuploidy; Discussed Unstable Housing, Discussed Communication Barriers, Discussed Environmental/Work Hazards, Discussed Toxoplasmosis Precations and Discussed Second Trimester Second Trimester: Signs and Symptoms of Labor, Selecting a care provider, Reproductive Life Planning & Contreception, Care Planning, Depression/Anxiety and Intimate Partner Violence; Discussed Tobacco Cessation Third Trimester Third Trimester: Pain Management Plans, Labor support person(s), Immediate Larc, Signs and Symptoms of Preeclampsia, Infant Feeding No , Education and Family Medical Leave or Disability Forms Results POC Urinalysis 2 Dip (Clinic) Office Urine Glucose Negative Last Edit by Heather Moy on 10/20/24 14:23 Office Urine Protein Negative Last Edit by Heather Moy on 10/20/24 14:23 Coding Level of Care Code OB Routine Diagnoses Obesity affecting O99.210 FH: breast cancer in first degree relative Z80.3 Supervision of normal Z34.90 19 weeks gestation of Z3A.19 Weeks of gestation: 19 weeks Hx of depression, currently O99.891; Z86.59 Rh negative state in antepartum period O26.899; Z67.91 Assessment and Plan Assessment and Plan (1) Obesity affecting : Status: Acute Comment: [id number] (2) FH: breast cancer in first degree relative: Status: Acute Comment: Mother 35yo-, Unknown if genetic testing was done (3) Supervision of normal : Status: Acute Comment: PRR, , DIANDRA 03/14/25, PC Elise, Julio (4) : Status: Acute Qualifiers: Weeks of gestation: 19 weeks Qualified Code(s): Z3A.19 - 19 weeks gestation of Comment: declined NIPT & Carrier testing (5) Hx of depression, currently : Status: Acute (6) Rh negative state in antepartum period: Status: Acute Comment: O-, Rhogam @ 28wks( is O+) Orders: Orders POC Urinalysis 2 Dip (Clinic) Today 10/20/24 1435 cora WATTS> Date _ Tiffanie Osorio MD Cosigner Signature: Date (if applicable) CC: ~ [facility]05-16-2025 Progress note Author Tiffanie Osorio [facility] Note Date/Time October 20, 2024 2:35p [facility] [address], [address] [place] [address] OFFICE VISIT Date of Service: 10/20/24 MR#: [id number] Acct: [id number] Name: MISAELRADHA M Rep #: [id number] : 1995 Provider: Dr. Reggie Osorio MD Age/Sex: 29/F Location: [facility] Status: Signed Intake Vital Signs 08/18/24 13:43 09/21/24 13:59 10/20/24 14:17 Height 5 ft 8 in 5 ft 8 in 5 ft 8 in Weight: 193 lb 8 oz BMI 29.4 BP 107/61 Intake Visit Reasons: 18wk ob Clerk To Justice Required: No Is patient in pain?: No Feel stressed/tense/nervous/anxious/difficulty sleeping: not at all Allergies No Known Allergies Allergy (Unverified 10/20/24 14:18) Medications ?Medication ?Instructions ?Recorded ?Confirmed ?Type multivitamin no.47-iron fum 27 cap PO 08/04/24 5 History mg-folate no.1 1 mg-dha 300 mg capsule (PNV-DHA) pyridoxine (vitamin B6) 10 mg 10 mg PO TID 08/04/24 History tablet Last Menstrual Period: 06/07/24 Zika: Zika virus screening: Negative : No PFSH PFSH Medical History Seasonal allergies Family History Mother Cancer, Onset Age: 19 cervical Breast cancer, Onset Age: 35 Grandmother Diabetes Maternal Type 1 Social History adopted: No household members: spouse and children housing: house number of children: 1 current occupational status: employed 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 pets and animals: Yes pets and animals: dog(s) history of recent travel: No sexually active: Yes Smoking Status: Never smoker alcohol intake: never substance use type: does not use well-balanced diet: daily or most days caffeine: No eating out: 1-3 times/week during the past year weight has: remained stable what type of physical activity do you participate in: none cristobal/mormon: Yarsanism seatbelt use: always do you feel safe at home: Yes additional social history: Julio History 2 Elective abortions Hx Para 1 Spontaneous abortions Hx # Term Pregnancies Ectopic pregnancies Hx # Pregnancies Multiple births # of living children 1 Past Pregnancies Del. Date Name GA/Weeks Outcome Route Bth Weight Gen Labor Lgth Anesthesia Del Locatn Provider FOB 12/15/20 [facility] 37 live - full term 7#8oz Male epidural Mónicaerica Gaytanew HPI 18wk ob Details: RADHA DOUGLAS is a 29 year old who presents for routine OB visit. OB Visit DIANDRA Calculator Estimated Delivery Date Method Current WG Current Estimate 03/14/25 LMP (Certain) 19w 2d Other Estimates 03/20/25 Ultrasound #1 18w 3d Expected Delivery Route/Plan Labor Preferences- CB/BF classes: [] labor support person: [] labor intervention preferences: [] pain management options preferred: [] cut cord/dad catch: [] : [] PP control planned: [] discussed possible routes of delivery and associated risks: [] special requests: [] Specific Issue/Plans Covid status: [] Flu vaccine: [] Tdap vaccine: [] Rhogam: [] LARC form signed: [] Problem list reviewed and updated with the most current plan of care details and appropriate orders placed. Relevant counseling for the gestational age provided. Continue routine care and follow up unless otherwise noted in visit notes/problem list details Initial Weight: 195 lb Date -?-?-?-?-?-?-?-?-?-?-?-?- EGA Weight BP Urine Prot -?-?-?-?-?-?-?-?-?-?-?-?- Glucose FHR FuHt Pres Dilation -?-?-?-?-?-?-?-?-?-?-?-?- Effaced St Visit Note 08/18/24 -?-?-?-?-?-?-?-?-?-?-?-?- 10w 2d 195 lb 6 oz (+6 oz) 122/57 -?-?-?-?-?-?-?-?-?-?-?-?- 178 -?-?-?-?-?-?-?-?-?-?-?-?- KW- CRL 2.63 cm. measuring 9.3 weeks. Declines NIPT. 09/21/24 -?-?-?-?-?-?-?-?-?-?-?-?- 15w 1d 191 lb 6 oz (-3 lb 10 oz) 122/73 Negative -?-?-?-?-?-?-?-?-?-?-?-?- Negative 145 -?-?-?-?-?-?-?-?-?-?-?-?- JV- no cramping or spotting. has the complaint of shortness of breath at times. has some air hunger of complaints. 10/20/24 -?-?-?-?-?-?-?-?-?-?-?-?- 19w 2d 193 lb 8 oz (-1 lb 8 oz) 107/61 Negative -?-?-?-?-?-?-?-?-?-?-?-?- Negative 145 -?-?-?-?-?-?-?-?-?-?-?-?- Sm- no vb crampi ng ACOG First Trimester First Trimester: Desire for , Alcohol, Tobacco Cessation, Illicit/Recreational Drug/Substance Use, Intimate Partner Violence, Barriers to care, Anticipated Course of Care, Use of Any medications, Sexual activity, Exercise, Dental Care, Sauna/Hot tub use, Seat Belt use, Childbirth classes/Hospital facilities, Travel, Indications for Ultrasound and Screening for Aneuploidy; Discussed Unstable Housing, Discussed Communication Barriers, Discussed Environmental/Work Hazards, Discussed Toxoplasmosis Precations and Discussed Second Trimester Second Trimester: Signs and Symptoms of Labor, Selecting a care provider, Reproductive Life Planning & Contreception, Care Planning, Depression/Anxiety and Intimate Partner Violence; Discussed Tobacco Cessation Third Trimester Third Trimester: Pain Management Plans, Labor support person(s), Immediate Larc, Signs and Symptoms of Preeclampsia, Infant Feeding No , Education and Family Medical Leave or Disability Forms Results POC Urinalysis 2 Dip (Clinic) Office Urine Glucose Negative Last Edit by Heather Moy on 10/20/24 14:23 Office Urine Protein Negative Last Edit by Heather Moy on 10/20/24 14:23 Coding Level of Care Code OB Routine Diagnoses Obesity affecting O99.210 FH: breast cancer in first degree relative Z80.3 Supervision of normal Z34.90 19 weeks gestation of Z3A.19 Weeks of gestation: 19 weeks Hx of depression, currently O99.891; Z86.59 Rh negative state in antepartum period O26.899; Z67.91 Assessment and Plan Assessment and Plan (1) Obesity affecting : Status: Acute Comment: [id number] (2) FH: breast cancer in first degree relative: Status: Acute Comment: Mother 35yo-, Unknown if genetic testing was done (3) Supervision of normal : Status: Acute Comment: PRR, , DIANDRA 03/14/25, ADAM Olivares, Julio (4) : Status: Acute Qualifiers: Weeks of gestation: 19 weeks Qualified Code(s): Z3A.19 - 19 weeks gestation of Comment: declined NIPT & Carrier testing (5) Hx of depression, currently : Status: Acute (6) Rh negative state in antepartum period: Status: Acute Comment: O-, Rhogam @ 28wks( is O+) Orders: Orders POC Urinalysis 2 Dip (Clinic) Today 10/20/24 7883 <Electronically signed by Tiffanie shepherd MD> Date _ Tiffanie Canchola Signature: Date (if applicable) CC: ~ [email or web address] Work Phone: 1(426) 964-288304-17-2025 Evaluation note* Diagnosis Onset Date Resolution Status Admit Date FH: breast cancer in first degree relative acute September 21, 2024 1:56pm Hx of depression, currently acute September 21, 1:56pm Obesity affecting acute September 21, 2024 1:56pm acute September 21 1:56pm Rh negative state in antepar vinay period acute September 21, 2024 1:56pm Supervision of normal acut e September 21, 2024 1:56pm FH: breast cancer in first degree relative acute October 20, 2024 2 :14pm Hx of depression, currently acute October 20 2:14pm Obesity affecting acute October 20, 2024 2:14pm acute October 20, 2024 2:14pm Rh negative state in antepar vinay period acute October 20, 2024 2 :14pm Supervision of normal acut e October 20, 2024 2:14pm FH: breast cancer in first degree relative acute November 13, 2024 1 :25pm Hx of depression, currently acute November 13 1:25pm Obesity affecting acute November 13, 2024 1:25pm acute November 13, 2024 1:25pm Rh negative state in antepar vinay period acute November 13, 2024 1 :25pm Supervision of normal acut e November 13, 2024 1:25pm FH: breast cancer in first degree relative acute December 20, 2024 2:55pm Hx of depression, currently acute December 20 2:55pm Obesity affecting acute December 20, 2024 2:55pm acute December 20 2:55pm Rh negative state in antepar vinay period acute December 20, 2024 2:55pm Supervision of normal acut e December 20, 2024 2:55pm [facility] Work Phone: 1([phone]) 930-341804-17-2025 Evaluation note* Diagnosis Onset Date Resolution Status Admit Date FH: breast cancer in first degree relative acute September 21, 2024 1:56pm Hx of depression, currently acute September 21, 1:56pm Obesity affecting acute September 21, 2024 1:56pm acute September 21 1:56pm Rh negative state in antepar vinay period acute September 21, 2024 1:56pm Supervision of normal acut e September 21, 2024 1:56pm FH: breast cancer in first degree relative acute October 20, 2024 2 :14pm Hx of depression, currently acute October 20 2:14pm Obesity affecting acute October 20, 2024 2:14pm acute October 20, 2024 2:14pm Rh negative state in antepar vinay period acute October 20, 2024 2 :14pm Supervision of normal acut e October 20, 2024 2:14pm FH: breast cancer in first degree relative acute November 13, 2024 1 :25pm Hx of depression, currently acute November 13 1:25pm Obesity affecting acute November 13, 2024 1:25pm acute November 13, 2024 1:25pm Rh negative state in antepar vinay period acute November 13, 2024 1 :25pm Supervision of normal acut e November 13, 2024 1:25pm FH: breast cancer in first degree relative acute December 20, 2024 2:55pm Hx of depression, currently acute December 20 2:55pm Obesity affecting acute December 20, 2024 2:55pm acute December 20 2:55pm Rh negative state in antepar vinay period acute December 20, 2024 2:55pm Supervision of normal acut e December 20, 2024 2:55pm Hx of depression, currently acute January 01 10:02am Obesity affecting acute January 01, 2025 10:02am acute January 01 10:02am Rh negative state in antepar vinay period acute January 01, 2025 10:02am Supervision of normal acut e January 01, 2025 10:02am [facility] Work Phone: 1(279) 111-142304-17-2025 Evaluation note* Diagnosis Onset Date Resolution Status Admit Date FH: breast cancer in first degree relative acute September 21, 2024 1:56pm Hx of depression, currently acute September 21, 1:56pm Obesity affecting acute September 21, 2024 1:56pm acute September 21 1:56pm Rh negative state in antepar vinay period acute September 21, 2024 1:56pm Supervision of normal acut e September 21, 2024 1:56pm FH: breast cancer in first degree relative acute October 20, 2024 2 :14pm Hx of depression, currently acute October 20 2:14pm Obesity affecting acute October 20, 2024 2:14pm acute October 20, 2024 2:14pm Rh negative state in antepar vinay period acute October 20, 2024 2 :14pm Supervision of normal acut e October 20, 2024 2:14pm FH: breast cancer in first degree relative acute November 13, 2024 1 :25pm Hx of depression, currently acute November 13 1:25pm Obesity affecting acute November 13, 2024 1:25pm acute November 13, 2024 1:25pm Rh negative state in antepar vinay period acute November 13, 2024 1 :25pm Supervision of normal acut e November 13, 2024 1:25pm FH: breast cancer in first degree relative acute December 20, 2024 2:55pm Hx of depression, currently acute December 20 2:55pm Obesity affecting acute December 20, 2024 2:55pm acute December 20 2:55pm Rh negative state in antepar vinay period acute December 20, 2024 2:55pm Supervision of normal acut e December 20, 2024 2:55pm Hx of depression, currently acute January 01 10:02am Obesity affecting acute January 01, 2025 10:02am acute January 01 10:02am Rh negative state in antepar vinay period acute January 01, 2025 10:02am Supervision of normal acut e January 01, 2025 10:02am FH: breast cancer in first degree relative acute January 15 10:01am Hx of depression, currently acute January 15, 2025 10:01am Obesity affecting acute January 15, 2025 10:01am acute January 15, 2 025 10:01am Rh negative state in antepar vinay period acute January 15 10:01am Supervision of normal acut e January 15, 2025 10:01am [facility] Work Phone: 1(135) 957-320603-14-2025 NotePap Smear Specimen AdequacyMar 2024 11:59pmComment.Satisfactory for evaluation. Endocervical and/or squamous metaplasticcells (endocervical component)are present.[facility] INTER[facility]ACED A#[id number] HealthcareComment on above:Satisfactory for evaluation. Endocervical and/or squamous metaplasticcells (endocervical component)are present.08-18-2024 Evaluation note* Diagnosis Onset Date Resolution Status Admit Date FH: breast cancer in first degree relative acute August 18, 2024 1:31pm Hx of depression, currently acute August 18 2 025 1:31pm Obesity affecting acute August 18, 2024 1:31pm acute August 18 1:31pm Rh negative state in antepar vinay period acute August 18, 2024 1:31pm Supervision of normal acut e August 18, 2024 1:31pm [facility] Work Phone: 1([phone]) 978-849903-14-2025 Evaluation note* Diagnosis Onset Date Resolution Status Admit Date FH: breast cancer in first degree relative acute August 18, 2024 1:31pm Hx of depression, currently acute August 18, 2 025 1:31pm Obesity affecting acute August 18, 2024 1:31pm acute August 18 1:31pm Rh negative state in antepar vinay period acute August 18, 2024 1:31pm Supervision of normal acut e August 18, 2024 1:31pm FH: breast cancer in first degree relative acute September 21, 2024 1:56pm Hx of depression, currently acute September 21, 2 025 1:56pm Obesity affecting acute September 21, 2024 1:56pm acute September 21 1:56pm Rh negative state in antepar vinay period acute September 21, 2024 1:56pm Supervision of normal acut e September 21, 2024 1:56pm FH: breast cancer in first degree relative acute October 20, 2024 2 :14pm Hx of depression, currently acute October 20 2:14pm Obesity affecting acute October 20, 2024 2:14pm acute October 20, 2024 2:14pm Rh negative state in antepar vinay period acute October 20, 2024 2 :14pm Supervision of normal acut e October 20, 2024 2:14pm [facility] Work Phone: 1(533) 614-327103-14-2025 Evaluation note* Diagnosis Onset Date Resolution Status Admit Date FH: breast cancer in first degree relative acute August 18, 2024 1:31pm Hx of depression, currently acute August 18, 2 025 1:31pm Obesity affecting acute August 18, 2024 1:31pm acute August 18 1:31pm Rh negative state in antepar vinay period acute August 18, 2024 1:31pm Supervision of normal acut e August 18, 2024 1:31pm FH: breast cancer in first degree relative acute September 21, 2024 1:56pm Hx of depression, currently acute September 21, 2 025 1:56pm Obesity affecting acute September 21, 2024 1:56pm acute September 21 1:56pm Rh negative state in antepar vinay period acute September 21, 2024 1:56pm Supervision of normal acut e September 21, 2024 1:56pm FH: breast cancer in first degree relative acute October 20, 2024 2 :14pm Hx of depression, currently acute October 20 2:14pm Obesity affecting acute October 20, 2024 2:14pm acute October 20, 2024 2:14pm Rh negative state in antepar vinay period acute October 20, 2024 2 :14pm Supervision of normal acut e October 20, 2024 2:14pm FH: breast cancer in first degree relative acute November 13, 2024 1 :25pm Hx of depression, currently acute November 13 1:25pm Obesity affecting acute November 13, 2024 1:25pm acute November 13, 2024 1:25pm Rh negative state in antepar vinay period acute November 13, 2024 1 :25pm Supervision of normal acut e November 13, 2024 1:25pm [facility] Work Phone: [phone]) 812-771912-19-2022 Note. MICRO - Microbiology PROCEDURE: Culture Beta Strep Only [*1] SOURCE: Throat BODY SITE: Throat COLLECTED DATE/TIME: 05/22/2022 18:27 EST RECEIVED DATE/TIME: 05/23/2022 04:44 EST START DATE/TIME: 05/23/2022 04:44 EST FREE TEXT SOURCE: FINAL REPORTS Final Report [] Verified Date/Time/Personnel: 05/25/2022 07:27 EST No Beta Strep isolated at 48hrs. PRELIMINARY REPORTS Preliminary Report [] Verified Date/Time/Personnel: 05/24/2022 12:14 EST No beta Strep isolated at 24 hours. Performing Locations *1: This test was performed at: [facility], [address] [place] [address], [facility]- , [facility] ([place])Evaluation + Plan note No data available for this section [facility] Progress note Author Heather Santiago [facility] Note Date/Time January 01, 2025 10:1 6am [facility] [address] [place] [address], [address] [place] [address] OFFICE VISIT Date of Service: 01/01/25 MR#: [id number] Acct: [id number] Name: EDELGRAHAMRADHA M Rep #: [id number] : 1995 Provider: ESTEBAN Santiago Age/Sex: 29/F Location[place] [facility] Status: Signed with Addenda ADDENDUM by Alexandra Saucedo on 01/01/25 at 1020 Office Procedure Documentation entered by Alexandra Saucedo 01/01/25 10:20: Immunizations Adacel(Tdap Adolesn/Adult)(PF) 2 Lf-(2.5-5-3-5)-5 Lf/0.5 mL IM syringe Performing Provider: Heather Santiago SIZER HANDRUDIC Performing Location: [facility] Administered by: Alexandra Saucedo on 01/01/25 10:19 Dose Route Admin Location Dispensed Lot Number Expiration Date ND Tabular Typist 0.5 mL IM Left Arm (SQ) 0.5 mL [id number] 11/05/26 53638-994-03 [employer] VIS Given Date VIS Provided VIS Publication Date 01/01/25 Single Vaccine 24 Eligibility Eligibility Date Funding Source None Date _ cc: ~* Signed Intake Vital Signs 11/13/24 13:28 12/20/24 14:57 01/01/25 10:03 Height 5 ft 8 in 5 ft 8 in 5 ft 8 in Weight: 201 lb BMI 30.5 BP 123/81 H Intake Visit Reasons: 30wk ob Clerk To Justice Required: No Is patient in pain?: No Allergies No Known Allergies Allergy (Unverified 01/01/25 10:04) Medications ?Medication ?Instructions ?Recorded ?Confirmed ?Type multivitamin no.47-iron fum 27 cap PO 08/04/24 5 History mg-folate no.1 1 mg-dha 300 mg capsule (PNV-DHA) pyridoxine (vitamin B6) 10 mg 10 mg PO TID 08/04/24 History tablet Last Menstrual Period: 06/07/24 Zika: Zika virus screening: Negative : No Have you fallen in the past year?: No PFSH PFSH Medical History Seasonal allergies Family History Mother Cancer, Onset Age: 19 cervical Breast cancer, Onset Age: 35 Grandmother Diabetes Maternal Type 1 Social History adopted: No household members: spouse and children housing: house number of children: 1 current occupational status: employed 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 pets and animals: Yes pets and animals: dog(s) history of recent travel: No sexually active: Yes Smoking Status: Never smoker alcohol intake: never substance use type: does not use well-balanced diet: daily or most days caffeine: No eating out: 1-3 times/week during the past year weight has: remained stable what type of physical activity do you participate in: none cristobal/mormon: Yarsanism seatbelt use: always do you feel safe at home: Yes additional social history: Julio History 2 Elective abortions Hx Para 1 Spontaneous abortions Hx # Term Pregnancies Ectopic pregnancies Hx # Pregnancies Multiple births # of living children 1 Past Pregnancies Del. Date Name GA/Weeks Outcome Route Bth Weight Infant Gen Labor Lgth Anesthesia Del Locatn Provider FOB 12/15/20 Elise 37 live - full term 7#8oz Male epidural Mónicaerica rodgers Trace Kim HPI 30wk ob Details: RADHA DOUGLAS is a 29 year old who presents for routine OB visit. OB Visit DIANDRA Calculator Estimated Delivery Date Method Current WG Current Estimate 03/14/25 LMP (Certain) 29w 5d Other Estimates 03/20/25 Ultrasound #1 28w 6d Expected Delivery Route/Plan Labor Preferences- CB/BF classes: no labor support person: Enrique labor intervention preferences: [] pain management options preferred: limited cut cord/dad catch: yes : yes PP control planned: discussed discussed possible routes of delivery and associated risks: [] special requests: [] Specific Issue/Plans Covid status: [] Flu vaccine: [] Tdap vaccine: [] Rhogam: given 12/20/24 LARC form signed: given 01/01/25 Problem list reviewed and updated with the most current plan of care details and appropriate orders placed. Relevant counseling for the gestational age provided. Continue routine care and follow up unless otherwise noted in visit notes/problem list details Initial Weight: 195 lb Date -?-?--?-?-?-?-?-?-?-?-?-?- EGA Weight BP Urine Prot -?-?-?-?-?-?-?-?-?-?-?-?- Glucose FHR FuHt Pres Dilation -?-?-?-?-?-?-?-?-?-?-?-?- Effaced St Visit Note 08/18/24 -?-?-?-?-?-?-?-?-?-?-?-?- 10w 2d 195 lb 6 oz (+6 oz) 122/57 -?-?-?-?-?-?-?-?-?-?-?-?- 178 -?-?-?-?-?-?-?-?-?-?-?-?- KW- CRL 2.63 cm. measuring 9.3 weeks. Declines NIPT. 09/21/24 -?-?-?-?-?-?-?-?-?-?-?-?- 15w 1d 191 lb 6 oz (-3 lb 10 oz) 122/73 Negative -?-?-?-?-?-?-?-?-?-?-?-?- Negative 145 -?-?-?-?-?-?-?-?-?-?-?-?- JV- no cramping or spotting. has the complaint of shortness of breath at times. has some air hunger of complaints. 10/20/24 -?-?-?-?-?-?-?-?-?-?-?-?- 19w 2d 193 lb 8 oz (-1 lb 8 oz) 107/61 Negative -?-?-?-?-?-?-?-?-?-?-?-?- Negative 145 -?-?-?-?-?-?-?-?-?-?-?-?- Sm- no vb crampi ng 11/13/24 -?-?-?-?-?-?-?-?-?-?-?-?- 22w 5d 197 lb 2 oz (+2 lb 2 oz) 110/68 Negative -?-?-?-?-?-?-?-?-?-?-?-?- Negative 143 -?-?-?-?-?-?-?-?-?-?-?-?- MH-No VB. Good F M. Some constipation/new med list given and reviewed 12/20/24 -?-?-?-?-?-?-?-?-?-?-?-?- 28w 0d 201 lb (+6 lb) 117/7 117/74 Negative -?-?-?-?-?-?-?-?-?-?-?-?- Negative 140 28 -?-?-?-?-?-?-?-?-?-?-?-?- SM- n ovb lof go od fm no reuglar ctx cbc gct rhogam 01/01/25 -?-?-?-?-?-?-?-?-?-?-?-?- 29w 5d 201 lb (+6 lb) 123/81 Negative -?-?-?-?-?-?-?-?-?-?-?-?- Negative 142 29 -?-?-?-?-?-?-?-?-?-?-?-?- -No Vb, LOF. G ood FM. tdap. larc ACOG First Trimester First Trimester: Desire for , Alcohol, Tobacco Cessation, Illicit/Recreational Drug/Substance Use, Intimate Partner Violence, Barriers to care, Anticipated Course of Care, Use of Any medications, Sexual activity, Exercise, Dental Care, Sauna/Hot tub use, Seat Belt use, Childbirth classes/Hospital facilities, Travel, Indications for Ultrasound and Screening for Aneuploidy; Discussed Unstable Housing, Discussed Communication Barriers, Discussed Environmental/Work Hazards, Discussed Toxoplasmosis Precations and Discussed Second Trimester Second Trimester: Signs and Symptoms of Labor, Selecting a care provider, Reproductive Life Planning & Contreception, Care Planning, Depression/Anxiety and Intimate Partner Violence; Discussed Tobacco Cessation Third Trimester Third Trimester: Pain Management Plans, Labor support person(s), Immediate Larc, Signs and Symptoms of Preeclampsia, Feeding No , Education and Family Medical Leave or Disability Forms ROS Const Reports system reviewed and no additional complaints, except as documented GI Denies abdominal pain, Denies nausea and Denies vomiting Exam Const General: cooperative Nutritional Appearance: well nourished GI Palpation: soft, nontender and other (gravid) Results POC Urinalysis 2 Dip (Clinic) Office Urine Glucose Negative Last Edit by Alexandra Saucedo on 01/01/25 10:09 Office Urine Protein Negative Last Edit by Alexandra Saucedo on 01/01/25 10:09 Coding Level of Care Code Off vis,est,level 3 Diagnoses Encounter for supervision of other normal in third trimester Z34.83 Normal : other normal Trimester: third trimester Obesity affecting in second trimester, unspecified obesity type O99.212 Obesity type affecting : unspecified obesity Trimester: second trimester 29 weeks gestation of Z3A.29 Weeks of gestation: 29 weeks Hx of depression, currently O99.891; Z86.59 Rh negative state in antepartum period O26.899; Z67.91 Assessment and Plan Assessment and Plan (1) Supervision of normal : Status: Acute Qualifiers: Normal : other normal Trimester: third trimester Qualified Code(s): Z34.83 - Encounter for supervision of other normal , third trimester Comment: PRR, , DIANDRA 03/14/25, PC Elise, Julio (2) Obesity affecting : Status: Acute Qualifiers: Obesity type affecting : unspecified obesity Trimester: second trimester Qualified Code(s): O99.212 - Obesity complicating , second trimester Comment: [id number] (3) : Status: Acute Qualifiers: Weeks of gestation: 29 weeks Qualified Code(s): Z3A.29 - 29 weeks gestation of Comment: declined NIPT & Carrier testing. low normal CL-repeat US 2 weeks. (4) Hx of depression, currently : Status: Acute (5) Rh negative state in antepartum period: Status: Acute Comment: O-, Rhogam @ 28wks( is O+) given 12/20/24 Orders: Orders POC Urinalysis 2 Dip (Clinic) Today Tdap Immunization Today Z23 - Encounter for immunization Medications: New Adacel(Tdap Adolesn/Adult)(PF) (diph,pertuss(acel),tet vac(PF)) 0.5 mL IM ONCE 0.5 mL 0RF NS Z23 - Encounter for immunization Plan problem list reviewed and updated for most current plan of care and appropriate orders placed. Relevant counseling for the gestational age appropriate provided and ACOG education checklist updated. Continue routine care and follow up. Clinical Quality Measures Falls Risk Screening/Assistive Devices Have you fallen in the past year?: No 01/01/25 1016 <Electronically signed by Heather harman SIZER HAND SIZER HAND-C> Date _ Heather Santiago SIZER HAND SIZER HAND-C Cosigner Signature: Date (if applicable) CC: ~ [facility] Work Phone: Progress note Author Tiffanie Osorio [facility] Note Date/Time January 15, 2025 10 :21am [facility] [address], [address] [place] [address] OFFICE VISIT Date of Service: 01/15/25 MR#: [id number] Acct: [id number] Name: RADHA DOUGLAS Rep #: [id number] : 1995 Provider: Dr. Reggie Osorio MD Age/Sex: 29/F Location: [facility] [place] Status: Signed Intake Vital Signs 11/13/24 13:28 01/01/25 10:03 01/15/25 10:03 Height 5 ft 8 in 5 ft 8 in 5 ft 8 in Weight: 205 lb 3 oz BMI 31.1 BP 120/74 Intake Visit Reasons: 32wk ob Clerk To Justice Required: No Is patient in pain?: No Allergies No Known Allergies Allergy (Unverified 01/15/25 10:04) Medications ?Medication ?Instructions ?Recorded ?Confirmed ?Type multivitamin no.47-iron fum 27 cap PO 08/04/24 5 History mg-folate no.1 1 mg-dha 300 mg capsule (PNV-DHA) pyridoxine (vitamin B6) 10 mg 10 mg PO TID 08/04/24 History tablet Last Menstrual Period: 06/07/24 Zika: Zika virus screening: Negative : No PFSH PFSH Medical History Seasonal allergies Family History Mother Cancer, Onset Age: 19 cervical Breast cancer, Onset Age: 35 Grandmother Diabetes Maternal Type 1 Social History adopted: No household members: spouse and children housing: house number of children: 1 current occupational status: employed 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 pets and animals: Yes pets and animals: dog(s) history of recent travel: No sexually active: Yes Smoking Status: Never smoker alcohol intake: never substance use type: does not use well-balanced diet: daily or most days caffeine: No eating out: 1-3 times/week during the past year weight has: remained stable what type of physical activity do you participate in: none cristobal/mormon: Yarsanism seatbelt use: always do you feel safe at home: Yes additional social history: Julio History 2 Elective abortions Hx Para 1 Spontaneous abortions Hx # Term Pregnancies Ectopic pregnancies Hx # Pregnancies Multiple births # of living children 1 Past Pregnancies Del. Date Name GA/Weeks Outcome Route Bth Weight Gen Labor Lgth Anesthesia Del Locatn Provider FOB 12/15/20 Elise 37 live - full term 7#8oz Male epidural Mónica Kim HPI 32wk ob Details: RADHA DOUGLAS is a 29 year old who presents for routine OB visit. OB Visit DIANDRA Calculator Estimated Delivery Date Method Current WG Current Estimate 03/14/25 LMP (Certain) 31w 5d Other Estimates 03/20/25 Ultrasound #1 30w 6d Expected Delivery Route/Plan Labor Preferences- CB/BF classes: no labor support person: Enrique labor intervention preferences: [] pain management options preferred: limited cut cord/dad catch: yes : yes PP control planned: discussed discussed possible routes of delivery and associated risks: [] special requests: [] Specific Issue/Plans Covid status: [] Flu vaccine: [] Tdap vaccine: given Rhogam: given 12/20/24 LARC form signed: given 01/01/25 Problem list reviewed and updated with the most current plan of care details and appropriate orders placed. Relevant counseling for the gestational age provided. Continue routine care and follow up unless otherwise noted in visit notes/problem list details Initial Weight: 195 lb Date -?-?-?-?-?-?-?-?-?-?-?-?- EGA Weight BP Urine Prot -?-?-?-?-?-?-?-?-?-?-?-?- Glucose FHR FuHt Pres Dilation -?-?-?-?-?-?-?-?-?-?-?-?- Effaced St Visit Note 08/18/24 -?-?-?-?-?-?-?-?-?-?-?--?- 10w 2d 195 lb 6 oz (+6 oz) 122/57 -?-?-?-?-?-?-?-?-?-?-?-?- 178 -?-?-?-?-?-?-?-?-?-?-?-?- KW- CRL 2.63 cm. measuring 9.3 weeks. Declines NIPT. 09/21/24 -?-?-?-?-?-?-?-?-?-?-?-?- 15w 1d 191 lb 6 oz (-3 lb 10 oz) 122/73 Negative -?-?-?-?-?-?-?-?-?-?-?--?- Negative 145 -?-?-?-?-?-?-?-?-?-?-?-?- JV- no cramping or spotting. has the complaint of shortness of breath at times. has some air hunger of complaints. 10/20/24 -?-?-?-?-?-?-?-?-?-?-?-?- 19w 2d 193 lb 8 oz (-1 lb 8 oz) 107/61 Negative -?-?-?-?-?-?-?-?-?-?-?-?- Negative 145 -?-?-?-?-?-?-?-?-?-?-?-?- Sm- no vb crampi ng 11/13/24 -?-?-?-?-?-?-?-?-?-?-?-?- 22w 5d 197 lb 2 oz (+2 lb 2 oz) 110/68 Negative -?-?-?-?-?-?-?-?-?-?-?-?- Negative 143 -?-?-?-?-?-?-?-?-?-?-?-?- MH-No VB. Reji Whitman. Some constipation/new med list given and reviewed 12/20/24 -?-?-?-?-?-?-?-?-?-?-?-?- 28w 0d 201 lb (+6 lb) 117/7 117/74 Negative -?-?-?-?-?-?-?-?-?-?-?-?- Negative 140 28 -?-?-?-?-?-?-?-?-?-?-?-?- SM- n ovb lof go od fm no reuglar ctx cbc gct rhogam 01/01/25 -?-?-?-?-?-?-?-?-?-?-?-?- 29w 5d 201 lb (+6 lb) 123/81 Negative -?-?-?-?-?-?-?-?-?-?-?-?- Negative 142 29 -?-?-?-?-?-?-?-?-?-?-?-?- -No Vb, LOF. G ood FM. tdap. [facility] 01/15/25 -?-?-?-?-?-?-?-?-?-?-?-?- 31w 5d 205 lb 3 oz (+10 lb 3 oz) 120/74 Negative -?-?-?-?-?-?-?-?-?-?-?-?- Negative 145 32 -?-?-?-?--?-?-?-?-?-?-?-?- SM- no vb lof go od fm no regular ctx, some left sided dicomfort at times ACOG First Trimester First Trimester: Desire for , Alcohol, Tobacco Cessation, Illicit/Recreational Drug/Substance Use, Intimate Partner Violence, Barriers to care, Anticipated Course of Care, Use of Any medications, Sexual activity, Exercise, Dental Care, Sauna/Hot tub use, Seat Belt use, Childbirth classes/Hospital facilities, Travel, Indications for Ultrasound and Screening for Aneuploidy; Discussed Unstable Housing, Discussed Communication Barriers, Discussed Environmental/Work Hazards, Discussed Toxoplasmosis Precations and Discussed Second Trimester Second Trimester: Signs and Symptoms of Labor, Selecting a care provider, Reproductive Life Planning & Contreception, Care Planning, Depression/Anxiety and Intimate Partner Violence; Discussed Tobacco Cessation Third Trimester Third Trimester: Pain Management Plans, Labor support person(s), Immediate Larc, Signs and Symptoms of Preeclampsia, Feeding No , [employer] Education and Family Medical Leave or Disability Forms Results POC Urinalysis 2 Dip (Clinic) Office Urine Glucose Negative Last Edit by Heather Moy on 01/15/25 10:09 Office Urine Protein Negative Last Edit by Heather Moy on 01/15/25 10:09 Coding Level of Care Code OB Routine Diagnoses Obesity affecting in second trimester, unspecified obesity type O99.212 Obesity type affecting : unspecified obesity Trimester: second trimester FH: breast cancer in first degree relative Z80.3 Encounter for supervision of other normal in third trimester Z34.83 Normal : other normal Trimester: third trimester 31 weeks gestation of Z3A.31 Weeks of gestation: 31 weeks Hx of depression, currently O99.891; Z86.59 Rh negative state in antepartum period O26.899; Z67.91 Assessment and Plan Assessment and Plan (1) Obesity affecting : Status: Acute Qualifiers: Obesity type affecting : unspecified obesity Trimester: second trimester Qualified Code(s): O99.212 - Obesity complicating , second trimester Comment: [id number] (2) FH: breast cancer in first degree relative: Status: Acute Comment: Mother 35yo-, Unknown if genetic testing was done (3) Supervision of normal : Status: Acute Qualifiers: Normal : other normal Trimester: third trimester Qualified Code(s): Z34.83 - Encounter for supervision of other normal , third trimester Comment: PRR, , DIANDRA 03/14/25,ila Olivares, Julio (4) : Status: Acute Qualifiers: Weeks of gestation: 31 weeks Qualified Code(s): Z3A.31 - 31 weeks gestation of Comment: declined NIPT & Carrier testing. low normal CL-repeat US 2 weeks. (5) Hx of depression, currently : Status: Acute (6) Rh negative state in antepartum period: Status: Acute Comment: O-, Rhogam @ 28wks( is O+) given 12/20/24 Orders: Orders POC Urinalysis 2 Dip (Clinic) Today 01/15/25 1021 <Electronically signed by Tiffanie shepherd MD> Date _ Tiffanie Osorio MD Cosigner Signature: Date (if applicable) CC: ~ [facility] Work Phone: Progress note Author Amy Meyers [facility] Note Date/Time January 29, 2025 9: 09am [facility] [address] [place] [address], [address] [place] [address] OFFICE VISIT Date of Service: 01/29/25 MR#: [id number] Acct: [id number] Name: RADHA DOUGLAS Rep #: [id number] : 1995 Provider: LUIS Meyers Age/Sex: 29/F Location: [facility] Status: Signed Intake Vital Signs 11/13/24 13:28 01/15/25 10:03 01/29/25 08:53 Height 5 ft 8 in 5 ft 8 in 5 ft 8 in Weight: 204 lb 8 oz BMI 31.1 BP 121/72 H Intake Visit Reasons: 34wk ob Chief Complaint: 34wk ob Clerk To Justice Required: No Is patient in pain?: No Allergies No Known Allergies Allergy (Unverified 01/29/25 08:51) Medications ?Medication ?Instructions ?Recorded ?Confirmed ?Type multivitamin no.47-iron fum 27 cap PO 08/04/24 5 History mg-folate no.1 1 mg-dha 300 mg capsule (PNV-DHA) pyridoxine (vitamin B6) 10 mg 10 mg PO TID 08/04/24 History tablet Last Menstrual Period: 06/07/24 : No PFSH PFSH Medical History Seasonal allergies Family History Mother Cancer, Onset Age: 19 cervical Breast cancer, Onset Age: 35 Grandmother Diabetes Maternal Type 1 Social History adopted: No household members: spouse and children housing: house number of children: 1 current occupational status: employed 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 pets and animals: Yes pets and animals: dog(s) history of recent travel: No sexually active: Yes Smoking Status: Never smoker alcohol intake: never substance use type: does not use well-balanced diet: daily or most days caffeine: No eating out: 1-3 times/week during the past year weight has: remained stable what type of physical activity do you participate in: none cristobal/mormon: Yarsanism seatbelt use: always do you feel safe at home: Yes additional social history: Julio History 2 Elective abortions Hx Para 1 Spontaneous abortions Hx # Term Pregnancies Ectopic pregnancies Hx # Pregnancies Multiple births # of living children 1 Past Pregnancies Del. Date Name GA/Weeks Outcome Route Bth Weight Gen Labor Lgth Anesthesia Del Locatn Provider FOB 12/15/20 Elise 37 live - full term 7#8oz Male epidural Mónica Kim HPI 34wk ob Details: RADHA DOUGLAS is a 29 year old who presents for routine OB visit. OB Visit DIANDRA Calculator Estimated Delivery Date Method Current WG Current Estimate 03/14/25 LMP (Certain) 33w 5d Other Estimates 03/20/25 Ultrasound #1 32w 6d Expected Delivery Route/Plan Labor Preferences- CB/BF classes: no labor support person: Enrique labor intervention preferences: [] pain management options preferred: limited cut cord/dad catch: yes : yes PP control planned: discussed discussed possible routes of delivery and associated risks: [] special requests: [] Specific Issue/Plans Covid status: [] Flu vaccine: [] Tdap vaccine: given Rhogam: given 12/20/24 LARC form signed: given 01/01/25 Problem list reviewed and updated with the most current plan of care details and appropriate orders placed. Relevant counseling for the gestational age provided. Continue routine care and follow up unless otherwise noted in visit notes/problem list details Initial Weight: 195 lb Date -?-?-?-?-?-?-?-?-?-?-?-?- EGA Weight BP Urine Prot -?-?-?-?-?-?-?-?-?-?-?-?- Glucose FHR FuHt Pres Dilation -?-?-?-?-?-?-?-?-?-?-?-?- Effaced St Visit Note 08/18/24 -?-?-?-?-?-?-?-?-?-?-?-?- 10w 2d 195 lb 6 oz (+6 oz) 122/57 -?-?-?-?-?-?-?-?-?-?-?-?- 178 -?-?-?-?-?-?-?-?-?-?-?-?- KW- CRL 2.63 cm. measuring 9.3 weeks. Declines NIPT. 09/21/24 -?-?-?-?-?-?-?-?-?-?-?-?- 15w 1d 191 lb 6 oz (-3 lb 10 oz) 122/73 Negative -?-?-?-?-?-?-?-?-?-?-?-?- Negative 145 -?-?-?-?-?-?-?-?-?-?-?-?- JV- no cramping or spotting. has the complaint of shortness of breath at times. has some air hunger of complaints. 10/20/24 -?-?-?-?-?-?-?-?-?-?-?-?- 19w 2d 193 lb 8 oz (-1 lb 8 oz) 107/61 Negative -?-?-?-?-?-?-?-?-?-?-?-?- Negative 145 -?-?-?-?-?-?-?-?-?-?-?-?- Sm- no vb crampi ng 11/13/24 -?-?-?-?-?-?-?-?-?-?-?-?- 22w 5d 197 lb 2 oz (+2 lb 2 oz) 110/68 Negative -?-?-?-?-?-?-?-?-?-?-?-?- Negative 143 -?-?-?-?-?-?-?-?-?-?-?-?- -No VB. Reji Brewster Some constipation/new med list given and reviewed 12/20/24 -?-?-?-?-?-?-?-?-?-?-?-?- 28w 0d 201 lb (+6 lb) 117/7 117/74 Negative -?-?-?-?-?-?-?-?-?-?-?-?- Negative 140 28 -?-?-?-?-?-?-?-?-?-?--?-?- SM- n ovb lof go od fm no reuglar ctx cbc gct rhogam 01/01/25 -?-?-?-?-?-?-?-?-?-?-?-?- 29w 5d 201 lb (+6 lb) 123/81 Negative -?-?-?-?-?-?-?-?-?-?-?-?- Negative 142 29 -?-?-?-?-?-?-?-?-?-?-?-?- -No Vb, LOF. G ood FM. tdap. [facility] 01/15/25 -?-?-?-?-?-?-?-?-?-?-?-?- 31w 5d 205 lb 3 oz (+10 lb 3 oz) 120/74 Negative -?-?-?-?-?-?-?-?-?-?-?-?- Negative 145 32 -?-?-?-?-?-?-?-?-?-?-?-?- SM- no vb lof go od fm no regular ctx, some left sided dicomfort at times 01/29/25 -?-?-?-?-?-?-?-?-?-?-?-?- 33w 5d 204 lb 8 oz (+9 lb 8 oz) 121/72 Negative -?-?-?-?-?-?-?-?-?-?-?-?- Negative 140 34 -?-?-?-?-?-?-?-?-?-?-?-?- KW- no vb/lof/ct x. good fm. GBS next visit. ACOG First Trimester First Trimester: Desire for , Alcohol, Tobacco Cessation, Illicit/Recreational Drug/Substance Use, Intimate Partner Violence, Barriers to care, Anticipated Course of Care, Use of Any medications, Sexual activity, Exercise, Dental Care, Sauna/Hot tub use, Seat Belt use, Childbirth classes/Hospital facilities, Travel, Indications for Ultrasound and Screening for Aneuploidy; Discussed Unstable Housing, Discussed Communication Barriers, Discussed Environmental/Work Hazards, Discussed Toxoplasmosis Precations and Discussed Second Trimester Second Trimester: Signs and Symptoms of Labor, Selecting a care provider, Reproductive Life Planning & Contreception, Care Planning, Depression/Anxiety and Intimate Partner Violence; Discussed Tobacco Cessation Third Trimester Third Trimester: Pain Management Plans, Labor support person(s), Immediate Larc, Signs and Symptoms of Preeclampsia, Feeding No , [employer] Education and Family Medical Leave or Disability Forms ROS Const Reports system reviewed and no additional complaints, except as documented Eyes Reports system reviewed and no additional complaints, except as documented ENT Reports system reviewed and no additional complaints, except as documented Card Reports system reviewed and no additional complaints, except as documented Resp Reports system reviewed and no additional complaints, except as documented GI Reports system reviewed and no additional complaints, except as documented, Denies nausea and Denies vomiting Reports system reviewed and no additional complaints, except as documented Musc Reports system reviewed and no additional complaints, except as documented Skin/Breast Reports system reviewed and no additional complaints, except as documented Neuro Yes system reviewed and no additional complaints, except as documented Psych Reports system reviewed and no additional complaints, except as documented Endo Reports system reviewed and no additional complaints, except as documented Martín/Lymph Reports system reviewed and no additional complaints, except as documented Aller/Immun Reports system reviewed and no additional complaints, except as documented Exam Const General: cooperative, healthy appearing and no acute distress Orientation: alert, awake and oriented x3 Neck Neck: normal visual inspection and full ROM Resp Effort & Inspection: normal respiratory effort, able to speak in complete sentences and symmetric chest movement GI Inspection: normal to inspection Palpation: soft and other Other: gravid Skin General: no rashes or lesions noted Neuro General: patient alert, patient awake and patient oriented x3 Cognition: normal cognition Speech: speech normal Gait: normal gait Motor: muscle tone normal throughout Extrem General: normal to inspection and full ROM Psych Appearance: grossly normal Mental Status: mental status grossly normal Mood: congruent mood Affect: normal affect Speech and Movement: speech and movement normal Attitude: cooperative Thought Process: normal Thought Content: normal Judgment: judgment good Results POC Urinalysis 2 Dip (Clinic) Office Urine Glucose Negative Last Edit by Sofía Mijares on 01/29/25 09:03 Office Urine Protein Negative Last Edit by Sofía Mijares on 01/29/25 09:03 Coding Level of Care Code Off vis,est,level 3 Diagnoses Obesity affecting in second trimester, unspecified obesity type O99.212 Obesity type affecting : unspecified obesity Trimester: second trimester FH: breast cancer in first degree relative Z80.3 Encounter for supervision of other normal in third trimester Z34.83 Normal : other normal Trimester: third trimester 33 weeks gestation of Z3A.33 Weeks of gestation: 33 weeks Hx of depression, currently O99.891; Z86.59 Rh negative state in antepartum period O26.899; Z67.91 Assessment and Plan Assessment and Plan (1) Obesity affecting : Status: Acute Qualifiers: Obesity type affecting : unspecified obesity Trimester: second trimester Qualified Code(s): O99.212 - Obesity complicating , second trimester Comment: [id number] (2) FH: breast cancer in first degree relative: Status: Acute Comment: Mother 35yo-, Unknown if genetic testing was done (3) Supervision of normal : Status: Acute Qualifiers: Normal : other normal Trimester: third trimester Qualified Code(s): Z34.83 - Encounter for supervision of other normal , third trimester Comment: PRR, , DIANDRA 03/14/25,ila Olivares, Julio (4) : Status: Acute Qualifiers: Weeks of gestation: 33 weeks Qualified Code(s): Z3A.33 - 33 weeks gestation of Comment: declined NIPT & Carrier testing. low normal CL-repeat US 2 weeks. (5) Hx of depression, currently : Status: Acute (6) Rh negative state in antepartum period: Status: Acute Comment: O-, Rhogam @ 28wks( is O+) given 12/20/24 Orders: Orders POC Urinalysis 2 Dip (Clinic) Today Plan Details Additional Comments: ACOG trimester education reviewed and updated. see problem list details for updated plan management information and see below for orders placed at this visit. GA appropriate handout given. 01/29/25908 <Electronically signed by Amy harman CNM> Date _ Amy Meyers CNM Cosigner Signature: Date (if applicable) CC: ~ [facility] Work Phone: Progress note Author Amy Meyers [facility] Note Date/Time February 16, 2025 9:48am [facility] [address] [place] [address], [place] [address] OFFICE VISIT Date of Service: 02/16/25 MR#: [id number] Acct: [id number] Name: RADHA DOUGLAS Rep #: [id number] : 1995 Provider: LUIS Meyers Age/Sex: 29/F Location: [facility] Status: Signed Intake Vital Signs 01/15/25 10:03 01/29/25 08:53 02/16/25 09:25 Height 5 ft 8 in 5 ft 8 in 5 ft 8 in Weight: 210 lb 3 oz BMI 31.9 BP 121/80 H Intake Visit Reasons: 36 wk ob Chief Complaint: 36wk OB Clerk To Justice Required: No Is patient in pain?: No Allergies No Known Allergies Allergy (Unverified 02/16/25 09:22) Medications ?Medication ?Instructions ?Recorded ?Confirmed ?Type multivitamin no.47-iron fum 27 cap PO 08/04/24 5 History mg-folate no.1 1 mg-dha 300 mg capsule (PNV-DHA) pyridoxine (vitamin B6) 10 mg 10 mg PO TID 08/04/24 History tablet Last Menstrual Period: 06/07/24 : No PFSH PFSH Medical History Seasonal allergies Family History Mother Cancer, Onset Age: 19 cervical Breast cancer, Onset Age: 35 Grandmother Diabetes Maternal Type 1 Social History adopted: No household members: spouse and children housing: house number of children: 1 current occupational status: employed 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 pets and animals: Yes pets and animals: dog(s) history of recent travel: No sexually active: Yes Smoking Status: Never smoker alcohol intake: never substance use type: does not use well-balanced diet: daily or most days caffeine: No eating out: 1-3 times/week during the past year weight has: remained stable what type of physical activity do you participate in: none cristobal/mormon: Yarsanism seatbelt use: always do you feel safe at home: Yes additional social history: Julio History 2 Elective abortions Hx Para 1 Spontaneous abortions Hx # Term Pregnancies Ectopic pregnancies Hx # Pregnancies Multiple births # of living children 1 Past Pregnancies Del. Date Name GA/Weeks Outcome Route Bth Weight Infant Gen Labor Lgth Anesthesia Del Locatn Provider FOB 12/15/20 Elise 37 live - full term 7#8oz Male epidural Mónica Kim HPI 36 wk ob Details: RADHA DOUGLAS is a 29 year old who presents for routine OB visit. OB Visit DIANDRA Calculator Estimated Delivery Date Method Current WG Current Estimate 03/14/25 LMP (Certain) 36w 2d Other Estimates 03/20/25 Ultrasound #1 35w 3d Expected Delivery Route/Plan Labor Preferences- CB/BF classes: no labor support person: Enrique labor intervention preferences: [] pain management options preferred: limited cut cord/dad catch: yes : yes PP control planned: discussed discussed possible routes of delivery and associated risks: [] special requests: [] Specific Issue/Plans Covid status: [] Flu vaccine: [] Tdap vaccine: given Rhogam: given 12/20/24 LARC form signed: given 01/01/25 Problem list reviewed and updated with the most current plan of care details and appropriate orders placed. Relevant counseling for the gestational age provided. Continue routine care and follow up unless otherwise noted in visit notes/problem list details Initial Weight: 195 lb Date -?-?-?-?-?-?-?-?-?-?-?-?- EGA Weight BP Urine Prot -?-?-?-?-?-?-?-?-?-?-?-?- Glucose FHR FuHt Pres Dilation -?-?-?-?-?-?-?-?-?-?-?-?- Effaced St Visit Note 08/18/24 -?-?-?-?-?-?-?-?-?-?-?-?- 10w 2d 195 lb 6 oz (+6 oz) 122/57 -?-?-?-?-?-?-?-?-?-?-?-?- 178 -?-?-?-?-?-?-?-?-?-?-?-?- KW- CRL 2.63 cm. measuring 9.3 weeks. Declines NIPT. 09/21/24 -?-?-?-?-?-?-?-?-?-?-?-?- 15w 1d 191 lb 6 oz (-3 lb 10 oz) 122/73 Negative -?-?-?-?-?-?-?-?-?-?-?-?- Negative 145 -?-?-?-?-?-?-?-?-?-?-?-?- JV- no cramping or spotting. has the complaint of shortness of breath at times. has some air hunger of complaints. 10/20/24 -?-?-?-?-?-?-?-?-?-?-?-?- 19w 2d 193 lb 8 oz (-1 lb 8 oz) 107/61 Negative -?-?-?-?-?-?-?-?-?-?-?-?- Negative 145 -?-?-?-?-?-?-?-?-?-?-?-?- Sm- no vb crampi ng 11/13/24 -?-?-?-?-?-?-?-?-?-?-?-?- 22w 5d 197 lb 2 oz (+2 lb 2 oz) 110/68 Negative -?-?-?-?-?-?-?-?-?-?-?-?- Negative 143 -?-?-?-?-?-?-?-?-?-?-?-?- -No VB. Reji Whitman. Some constipation/new med list given and reviewed 12/20/24 -?-?-?-?-?-?-?-?-?-?-?-?- 28w 0d 201 lb (+6 lb) 117/7 117/74 Negative -?-?-?-?-?-?-?-?-?-?-?-?- Negative 140 28 -?-?-?-?-?-?-?--?-?-?-?-?- SM- n ovb lof go od fm no reuglar ctx cbc gct rhogam 01/01/25 -?-?-?-?-?-?-?-?-?-?-?-?- 29w 5d 201 lb (+6 lb) 123/81 Negative -?-?-?-?-?-?-?-?-?-?-?-?- Negative 142 29 -?-?-?-?-?-?-?-?-?-?-?-?- -No Vb, LOF. G ood FM. tdap. larc 01/15/25 -?-?-?-?-?-?-?-?-?-?-?-?- 31w 5d 205 lb 3 oz (+10 lb 3 oz) 120/74 Negative -?-?-?-?-?-?-?-?-?-?-?-?- Negative 145 32 -?-?-?-?-?-?-?-?-?-?-?-?- SM- no vb lof go od fm no regular ctx, some left sided dicomfort at times 01/29/25 -?-?-?-?-?-?-?-?-?-?-?-?- 33w 5d 204 lb 8 oz (+9 lb 8 oz) 121/72 Negative -?-?-?-?-?-?-?-?-?-?-?-?- Negative 140 34 -?-?-?-?-?-?-?-?-?-?-?-?- KW- no vb/lof/ct x. good fm. GBS next visit. 02/16/25 -?-?-?-?-?-?-?-?-?-?-?-?- 36w 2d 210 lb 3 oz (+15 lb 3 oz) 121/80 Negative -?-?-?-?-?-?-?-?-?-?-?-?- Negative 135 37 2 -?-?-?-?--?-?-?-?-?-?-?-?- 60 -2 KW- no vb/ lof/ctx. good fm. GBS today. ACOG First Trimester First Trimester: Desire for , Alcohol, Tobacco Cessation, Illicit/Recreational Drug/Substance Use, Intimate Partner Violence, Barriers to care, Anticipated Course of Care, Use of Any medications, Sexual activity, Exercise, Dental Care, Sauna/Hot tub use, Seat Belt use, Childbirth classes/Hospital facilities, Travel, Indications for Ultrasound and Screening for Aneuploidy; Discussed Unstable Housing, Discussed Communication Barriers, Discussed Environmental/Work Hazards, Discussed Toxoplasmosis Precations and Discussed Second Trimester Second Trimester: Signs and Symptoms of Labor, Selecting a care provider, Reproductive Life Planning & Contreception, Care Planning, Depression/Anxiety and Intimate Partner Violence; Discussed Tobacco Cessation Third Trimester Third Trimester: Pain Management Plans, Labor support person(s), Immediate Larc, Signs and Symptoms of Preeclampsia, Feeding No , [employer] Education and Family Medical Leave or Disability Forms ROS Const Reports system reviewed and no additional complaints, except as documented Eyes Reports system reviewed and no additional complaints, except as documented ENT Reports system reviewed and no additional complaints, except as documented Card Reports system reviewed and no additional complaints, except as documented Resp Reports system reviewed and no additional complaints, except as documented GI Reports system reviewed and no additional complaints, except as documented, Denies nausea and Denies vomiting Reports system reviewed and no additional complaints, except as documented Musc Reports system reviewed and no additional complaints, except as documented Skin/Breast Reports system reviewed and no additional complaints, except as documented Neuro Yes system reviewed and no additional complaints, except as documented Psych Reports system reviewed and no additional complaints, except as documented Endo Reports system reviewed and no additional complaints, except as documented Martín/Lymph Reports system reviewed and no additional complaints, except as documented Aller/Immun Reports system reviewed and no additional complaints, except as documented Exam Const General: cooperative, healthy appearing and no acute distress Orientation: alert, awake and oriented x3 Neck Neck: normal visual inspection and full ROM Resp Effort & Inspection: normal respiratory effort, able to speak in complete sentences and symmetric chest movement GI Inspection: normal to inspection Palpation: soft and other Other: gravid Skin General: no rashes or lesions noted Neuro General: patient alert, patient awake and patient oriented x3 Cognition: normal cognition Speech: speech normal Gait: normal gait Motor: muscle tone normal throughout Extrem General: normal to inspection and full ROM Psych Appearance: grossly normal Mental Status: mental status grossly normal Mood: congruent mood Affect: normal affect Speech and Movement: speech and movement normal Attitude: cooperative Thought Process: normal Thought Content: normal Judgment: judgment good Results POC Urinalysis 2 Dip (Clinic) Office Urine Glucose Negative Last Edit by Sofía Mijares on 02/16/25 09:32 Office Urine Protein Negative Last Edit by Sofía Mijares on 02/16/25 09:32 Coding Level of Care Code Off vis,est,level 3 Diagnoses Obesity affecting in second trimester, unspecified obesity type O99.212 Obesity type affecting : unspecified obesity Trimester: second trimester FH: breast cancer in first degree relative Z80.3 Encounter for supervision of other normal in third trimester Z34.83 Normal : other normal Trimester: third trimester 36 weeks gestation of Z3A.36 Weeks of gestation: 36 weeks Hx of depression, currently O99.891; Z86.59 Rh negative state in antepartum period O26.899; Z67.91 Assessment and Plan Assessment and Plan (1) Obesity affecting : Status: Acute Qualifiers: Obesity type affecting : unspecified obesity Trimester: second trimester Qualified Code(s): O99.212 - Obesity complicating , second trimester Comment: [id number] (2) FH: breast cancer in first degree relative: Status: Acute Comment: Mother 35yo-, Unknown if genetic testing was done (3) Supervision of normal : Status: Acute Qualifiers: Normal : other normal Trimester: third trimester Qualified Code(s): Z34.83 - Encounter for supervision of other normal , third trimester Comment: PRR, , DIANDRA 03/14/25,boy herve ADAM Elise, Julio (4) : Status: Acute Qualifiers: Weeks of gestation: 36 weeks Qualified Code(s): Z3A.36 - 36 weeks gestation of Comment: declined NIPT & Carrier testing. low normal CL-repeat US 2 weeks. (5) Hx of depression, currently : Status: Acute (6) Rh negative state in antepartum period: Status: Acute Comment: O-, Rhogam @ 28wks( is O+) given 12/20/24 Orders: Orders POC Urinalysis 2 Dip (Clinic) Today Culture, Group B Streptococcus Today Z34.83 - Encounter for supervision of other normal , third trimester, Z3A.36 - 36 weeks gestation of Plan Details Additional Comments: ACOG trimester education reviewed and updated. see problem list details for updated plan management information and see below for orders placed at this visit. GA appropriate handout given. 02/16/25 0265 <Electronically signed by Amy harman CNM> Date _ Amy Meyers CNM Cosigner Signature: Date (if applicable) CC: ~ [facility] Work Phone: Reason for referral (narrative)No reason for referral information availableWWexner [facility] Work Phone: Summary Purpose Family History No Family History Records Found Relationship Condition Age at Onset Recorded Date/T gianna mother Malignant neoplasm 19 Malignant neoplasm of breast 35 grandmother Diabetes mellitus Unknown Advance Directives No Advanced Directives Records FoundNo Advanced Directives Records FoundNo Advanced Directives Records FoundNo Advanced Directives Records FoundNo Advanced Directives Records Found Chief Complaint and Reason for Visit Chief Complaint Admit Date 10WK NOB LMP 06/07/24 August 18, 2024 1:3 1pm Reason for Visit Admit Date FH: breast cancer in first degree relati ve August 18, 2024 1:31pm Hx of depression, currently p regnant August 18, 2024 1:31pm Obesity affecting August 18, 2024 1:31pm August 18, 2024 1:3 1pm Rh negative state in antepartum period M arch 2024 1:31pm Supervision of normal August 182024 1:31pm Chief Complaint Admit Date 10WK NOB LMP 06/07/24 August 18, 2024 1:3 1pm 14wk OB September 21, 2024 1:5 6pm 18wk ob October 20, 2024 2:14p m Reason for Visit Admit Date FH: breast cancer in first degree relati ve August 18, 2024 1:31pm Hx of depression, currently p regnant August 18, 2024 1:31pm Obesity affecting August 18, 2024 1:31pm August 18, 2024 1:3 1pm Rh negative state in antepartum period M arch 2024 1:31pm Supervision of normal August 182024 1:31pm FH: breast cancer in first degree relati ve September 21, 2024 1:56pm Hx of depression, currently p regnant September 21, 2024 1:56pm Obesity affecting September 21, 2024 1:56pm September 21, 2024 1:5 6pm Rh negative state in antepartum period A pril 2024 1:56pm Supervision of normal September 212024 1:56pm FH: breast cancer in first degree relati ve October 20, 2024 2:14pm Hx of depression, currently p regnant October 20, 2024 2:14pm Obesity affecting October 20 2:14pm October 20, 2024 2:14p m Rh negative state in antepartum period M ay 2024 2:14pm Supervision of normal October 2:14pm Chief Complaint Admit Date 10WK NOB LMP 06/07/24 August 18, 2024 1:3 1pm 14wk OB September 21, 2024 1:5 6pm 19wk ob October 20, 2024 2:14p m 22 WK OB November 13, 2024 1:25p m Reason for Visit Admit Date FH: breast cancer in first degree relati ve August 18, 2024 1:31pm Hx of depression, currently p regnant August 18, 2024 1:31pm Obesity affecting August 18, 2024 1:31pm August 18, 2024 1:3 1pm Rh negative state in antepartum period M arch 2024 1:31pm Supervision of normal August 182024 1:31pm FH: breast cancer in first degree relati ve September 21, 2024 1:56pm Hx of depression, currently p regnant September 21, 2024 1:56pm Obesity affecting September 21, 2024 1:56pm September 21, 2024 1:5 6pm Rh negative state in antepartum period A pril 2024 1:56pm Supervision of normal September 212024 1:56pm FH: breast cancer in first degree relati ve October 20, 2024 2:14pm Hx of depression, currently p regnant October 20, 2024 2:14pm Obesity affecting October 20 2:14pm October 20, 2024 2:14p m Rh negative state in antepartum period M ay 2024 2:14pm Supervision of normal October 2:14pm FH: breast cancer in first degree relati ve November 13, 2024 1:25pm Hx of depression, currently p regnant November 13, 2024 1:25pm Obesity affecting November 13 1:25pm November 13, 2024 1:25p m Rh negative state in antepartum period J une 2024 1:25pm Supervision of normal November 1:25pm Chief Complaint Admit Date 14wk OB September 21, 2024 1:5 6pm 19wk ob October 20, 2024 2:14p m 22 WK OB November 13, 2024 1:25p m 28 WK OB GLUCOSE/RHOGAM December 20, 2024 2:55pm Reason for Visit Admit Date FH: breast cancer in first degree relati ve September 21, 2024 1:56pm Hx of depression, currently p regnant September 21, 2024 1:56pm Obesity affecting September 21, 2024 1:56pm September 21, 2024 1:5 6pm Rh negative state in antepartum period A pril 2024 1:56pm Supervision of normal September 212024 1:56pm FH: breast cancer in first degree relati ve October 20, 2024 2:14pm Hx of depression, currently p regnant October 20, 2024 2:14pm Obesity affecting October 20 2:14pm October 20, 2024 2:14p m Rh negative state in antepartum period M ay 2024 2:14pm Supervision of normal October 2:14pm FH: breast cancer in first degree relati ve November 13, 2024 1:25pm Hx of depression, currently p regnant November 13, 2024 1:25pm Obesity affecting November 13 1:25pm November 13, 2024 1:25p m Rh negative state in antepartum period J une 2024 1:25pm Supervision of normal November 1:25pm FH: breast cancer in first degree relati ve December 20, 2024 2:55pm Hx of depression, currently p regnant December 20, 2024 2:55pm Obesity affecting December 20, 025 2:55pm December 20, 2024 2:55 pm Rh negative state in antepartum period J mayra 2024 2:55pm Supervision of normal December 2:55pm Chief Complaint Admit Date 14wk OB September 21, 2024 1:5 6pm 19wk ob October 20, 2024 2:14p m 22 WK OB November 13, 2024 1:25p m 28 WK OB GLUCOSE/RHOGAM December 20, 2024 2:55pm 30wk ob January 01, 2025 10:0 2am Reason for Visit Admit Date FH: breast cancer in first degree relati ve September 21, 2024 1:56pm Hx of depression, currently p regnant September 21, 2024 1:56pm Obesity affecting September 21, 2024 1:56pm September 21, 2024 1:5 6pm Rh negative state in antepartum period A pril 2024 1:56pm Supervision of normal September 212024 1:56pm FH: breast cancer in first degree relati ve October 20, 2024 2:14pm Hx of depression, currently p regnant October 20, 2024 2:14pm Obesity affecting October 20 2:14pm October 20, 2024 2:14p m Rh negative state in antepartum period M 2024 2:14pm Supervision of normal October 2:14pm FH: breast cancer in first degree relati ve November 13, 2024 1:25pm Hx of depression, currently p regnant November 13, 2024 1:25pm Obesity affecting November 13 1:25pm November 13, 2024 1:25p m Rh negative state in antepartum period J [facility] 2024 1:25pm Supervision of normal November 1:25pm FH: breast cancer in first degree relati ve December 20, 2024 2:55pm Hx of depression, currently p regnant December 20, 2024 2:55pm Obesity affecting December 20, 2 025 2:55pm December 20, 2024 2:55 pm Rh negative state in antepartum period J [facility] 2024 2:55pm Supervision of normal December 2:55pm Hx of depression, currently p regnant January 01, 2025 10:02am Obesity affecting January 01, 2 025 10:02am January 01, 2025 10:0 2am Rh negative state in antepartum period J [facility] 2024 10:02am Supervision of normal December 10:02am Chief Complaint Admit Date 14wk OB September 21, 2024 1:5 6pm 19wk ob October 20, 2024 2:14p m 22 WK OB November 13, 2024 1:25p m 28 WK OB GLUCOSE/RHOGAM December 20, 2024 2:55pm 30wk ob January 01, 2025 10:0 2am 32wk ob January 15, 2025 10 :01am Reason for Visit Admit Date FH: breast cancer in first degree relati ve September 21, 2024 1:56pm Hx of depression, currently p regnant September 21, 2024 1:56pm Obesity affecting September 21, 2024 1:56pm September 21, 2024 1:5 6pm Rh negative state in antepartum period A pril 2024 1:56pm Supervision of normal September 212024 1:56pm FH: breast cancer in first degree relati ve October 20, 2024 2:14pm Hx of depression, currently p regnant October 20, 2024 2:14pm Obesity affecting October 20 2:14pm October 20, 2024 2:14p m Rh negative state in antepartum period M ay 2024 2:14pm Supervision of normal October 2:14pm FH: breast cancer in first degree relati ve November 13, 2024 1:25pm Hx of depression, currently p regnant November 13, 2024 1:25pm Obesity affecting November 13 1:25pm November 13, 2024 1:25p m Rh negative state in antepartum period J une 2024 1:25pm Supervision of normal November 1:25pm FH: breast cancer in first degree relati ve December 20, 2024 2:55pm Hx of depression, currently p regnant December 20, 2024 2:55pm Obesity affecting December 20, 2:55pm December 20, 2024 2:55 pm Rh negative state in antepartum period J mayra 2024 2:55pm Supervision of normal December 2:55pm Hx of depression, currently p regnant January 01, 2025 10:02am Obesity affecting January 01, 025 10:02am January 01, 2025 10:0 2am Rh negative state in antepartum period J mayra 2024 10:02am Supervision of normal December 10:02am FH: breast cancer in first degree relati ve January 15, 2025 10:01am Hx of depression, currently p regnant January 15, 2025 10:01am Obesity affecting January 15, 2025 10:01am January 15, 2025 10 :01am Rh negative state in antepartum period A ugust 2024 10:01am Supervision of normal January 052024 10:01am Chief Complaint Admit Date 19wk ob October 20, 2024 2:14p m 22 WK OB November 13, 2024 1:25p m 28 WK OB GLUCOSE/RHOGAM December 20, 2024 2:55pm 30wk ob January 01, 2025 10:0 2am 32wk ob January 15, 2025 10 :01am 34wk ob January 29, 2025 8: 48am Reason for Visit Admit Date FH: breast cancer in first degree relati ve October 20, 2024 2:14pm Hx of depression, currently p regnant October 20, 2024 2:14pm Obesity affecting October 20 2:14pm October 20, 2024 2:14p m Rh negative state in antepartum period M ay 2024 2:14pm Supervision of normal October 2:14pm FH: breast cancer in first degree relati ve November 13, 2024 1:25pm Hx of depression, currently p regnant November 13, 2024 1:25pm Obesity affecting November 13 1:25pm November 13, 2024 1:25p m Rh negative state in antepartum period J une 2024 1:25pm Supervision of normal November 1:25pm FH: breast cancer in first degree relati ve December 20, 2024 2:55pm Hx of depression, currently p regnant December 20, 2024 2:55pm Obesity affecting December 20, 025 2:55pm December 20, 2024 2:55 pm Rh negative state in antepartum period J [facility] 2024 2:55pm Supervision of normal December 2:55pm Hx of depression, currently p regnant January 01, 2025 10:02am Obesity affecting January 01, 025 10:02am January 01, 2025 10:0 2am Rh negative state in antepartum period J [facility] 2024 10:02am Supervision of normal December 10:02am FH: breast cancer in first degree relati ve January 15, 2025 10:01am Hx of depression, currently p regnant January 15, 2025 10:01am Obesity affecting January 15, 2025 10:01am January 15, 2025 10 :01am Rh negative state in antepartum period A [facility] 2024 10:01am Supervision of normal January 052024 10:01am FH: breast cancer in first degree relati ve January 29, 2025 8:48am Hx of depression, currently p regnant January 29, 2025 8:48am Obesity affecting January 29, 2025 8:48am January 29, 2025 8: 48am Rh negative state in antepartum period A [facility] 2024 8:48am Supervision of normal January 062024 8:48am Chief Complaint Admit Date 19wk ob October 20, 2024 2:14p m 22 WK OB November 13, 2024 1:25p m 28 WK OB GLUCOSE/RHOGAM December 20, 2024 2:55pm 30wk ob January 01, 2025 10:0 2am 32wk ob January 15, 2025 10 :01am 34wk ob January 29, 2025 8: 48am 36 wk ob February 16, 2025 9:21am Reason for Visit Admit Date FH: breast cancer in first degree relati ve October 20, 2024 2:14pm Hx of depression, currently p regnant October 20, 2024 2:14pm Obesity affecting May 16th, 20 25 2:14pm October 20, 2024 2:14p m Rh negative state in antepartum period M ay 2024 2:14pm Supervision of normal October 2:14pm FH: breast cancer in first degree relati ve November 13, 2024 1:25pm Hx of depression, currently p regnant November 13, 2024 1:25pm Obesity affecting November 13 1:25pm November 13, 2024 1:25p m Rh negative state in antepartum period J [facility] 2024 1:25pm Supervision of normal November 1:25pm FH: breast cancer in first degree relati ve December 20, 2024 2:55pm Hx of depression, currently p regnant December 20, 2024 2:55pm Obesity affecting December 20, 2:55pm December 20, 2024 2:55 pm Rh negative state in antepartum period J [facility] 2024 2:55pm Supervision of normal December 2:55pm Hx of depression, currently p regnant January 01, 2025 10:02am Obesity affecting January 01, 025 10:02am January 01, 2025 10:0 2am Rh negative state in antepartum period J [facility] 2024 10:02am Supervision of normal December 10:02am FH: breast cancer in first degree relati ve January 15, 2025 10:01am Hx of depression, currently p regnant January 15, 2025 10:01am Obesity affecting January 15, 2025 10:01am January 15, 2025 10 :01am Rh negative state in antepartum period A [facility] 2024 10:01am Supervision of normal January 052024 10:01am FH: breast cancer in first degree relati ve January 29, 2025 8:48am Hx of depression, currently p regnant January 29, 2025 8:48am Obesity affecting January 29, 2025 8:48am January 29, 2025 8: 48am Rh negative state in antepartum period A [facility] 2024 8:48am Supervision of normal January 062024 8:48am FH: breast cancer in first degree relati ve February 16, 2025 9:21am Hx of depression, currently p regnant February 16, 2025 9:21am Obesity affecting February 162024 9:21am February 16, 2025 9:21am Rh negative state in antepartum period S eptember 2024 9:21am Supervision of normal Septembe r 2024 9:21am Additional Source Comments INFORMATION SOURCE (unrecogn ized section and content) DATE CREATED AUTHOR 02/06/2021 [facility] DATE CREATED AUTHOR AUTHOR'S ORGANIZ ATION 06/15/2022 [facility] ([place]) DATE CREATED AUTHOR AUTHOR'S ORGANIZ ATION 11/06/2024 [facility] DATE CREATED AUTHOR AUTHOR'S ORGANIZ ATION 11/10/2024 [facility] DATE CREATED AUTHOR AUTHOR'S ORGANIZ ATION 02/23/2025 [facility] Care Teams (unrecognized sec tion and content) Team Status: Inactive Member Role Status Dates Amy Meyers CNM Attending Provider Active S tart: August 18, 2024 End: August 18, 2024 Team Status: Inactive Member Role Status Dates Halle Barker CNM Attending Provider Active Start: August 18, 2024 End: August 18, 2024 Halle Barker CNM Referring Provider Active Start: August 18, 2024 End: August 18, 2024 Team Status: Inactive Member Role Status Dates Dr. Kelsea Luz DO Attending Provider Activ e Start: September 21, 2024 End: September 21, 2024 Team Status: Inactive Member Role Status Dates Dr. Tiffanie Osorio MD Attending Provider Active Start: October 20, 2024 End: October 20, 2024 Team Status: Inactive Member Role Status Dates ESTEBAN Oglesby NP Attending Provider Active Start: November 13, 2024 End: November 13, 2024 Team Status: Inactive Member Role/Relationship Status Dates Dr. Kelsea Luz DO Attending Provider Activ e Start: September 21, 2024 End: September 21, 2024 Team Status: Inactive Member Role/Relationship Status Dates Dr. Tiffanie Osorio MD Attending Provider Active Start: October 20, 2024 End: October 20, 2024 Team Status: Inactive Member Role/Relationship Status Dates Heather Snatiago [employer]ER [employer], [employer]-C Attending Provider Active Start: November 13, 2024 End: November 13, 2024 Team Status: Inactive Member Role/Relationship Status Dates Dr. Tiffanie Osorio MD Attending Provider Active Start: December 20, 2024 End: December 20, 2024 Team Status: Active Member Role/Relationship Status Dates Dr. Tiffanie Osorio MD Attending Provider Active Start: December 20, 2024 Dr. Tiffanie Osorio MD Referring Provider Active Start: December 20, 2024 Team Status: Inactive Member Role/Relationship Status Dates Dr. Tiffanie Osorio MD Attending Provider Active Start: December 20, 2024 End: December 20, 2024 Dr. Tiffanie Osorio MD Referring Provider Active Start: December 20, 2024 End: December 20, 2024 Team Status: Inactive Member Role/Relationship Status Dates Heather Santiago [employer], [employer]-C Attending Provider Active Start: January 01, 2025 End: January 01, 2025 Team Status: Inactive Member Role/Relationship Status Dates Dr. Tiffanie Osorio MD Attending Provider Active Start: January 15, 2025 End: January 15, 2025 Team Status: Inactive Member Role/Relationship Status Dates Dr. Tiffanie Osorio MD Attending Provider Active Start: October 20, 2024 End: October 20, 2024 Team Status: Inactive Member Role/Relationship Status Dates Heather Santiago [employer], [employer]-C Attending Provider Active Start: November 13, 2024 End: November 13, 2024 Team Status: Inactive Member Role/Relationship Status Dates Dr. Tiffanie Osorio MD Attending Provider Active Start: December 20, 2024 End: December 20, 2024 Team Status: Inactive Member Role/Relationship Status Dates Dr. Tiffanie Osorio MD Attending Provider Active Start: December 20, 2024 End: December 20, 2024 Dr. Tiffanie Osorio MD Referring Provider Active Start: December 20, 2024 End: December 20, 2024 Team Status: Inactive Member Role/Relationship Status Dates Heather Santiago [employer], [employer]-C Attending Provider Active Start: January 01, 2025 End: January 01, 2025 Team Status: Inactive Member Role/Relationship Status Dates Dr. Tiffanie Osorio MD Attending Provider Active Start: January 15, 2025 End: January 15, 2025 Team Status: Inactive Member Role/Relationship Status Dates Amy Meyers CNM Attending Provider Active S tart: January 29, 2025 End: January 29, 2025 Team Status: Inactive Member Role/Relationship Status Dates Amy Meyers CNM Attending Provider Active S tart: February 16, 2025 End: February 16, 2025 Goals (unrecognized section and content) Goals may be documented in a n alternate sectionGoals may be documented in an alternate section No data available for this sectionGoals may be documented in an alternate sectionGoals may be documented in an alternate sectionGoals may be documented in an alternate sectionGoals may be documented in an alternate sectionGoals may be documented in an alternate sectionGoals may be documented in an alternate sectionGoals may be documented in an alternate section FOR RECORDS PERTAINING TO PATIENTS WHO ARE OR HAVE BEEN ENROLLED IN A CHEMICAL DEPENDENCY/SUBSTANCEABUSE PROGRAM, SOME INFORMATION MAY BE OMITTED. This clinical summary was aggregated from multiple sources. Caution should be exercised in using it in the provision of clinical care. This summary normalizes information from multiple sources, and as a consequence, information in this document may materially change the coding, format and clinical context of patient data. In addition, data may be omitted in some cases. CLINICAL DECISIONS SHOULD BE BASED ON THE PRIMARY CLINICAL RECORDS. [facility]. provides no warranty or guarantee of the accuracy or completeness of information in this document.
[2025-02-25 21:40] VITALS: BP 135/78; PULSE 93
[2025-02-25 21:41] VITALS: RESP 16; TEMP 36.7
[2025-02-25 21:42] VITALS: PULSE 94; O2SAT 97
[2025-02-25 21:46] VITALS: BMI 32.1
--- NOTE | 2025-02-26 02:26 | OB.TRI.PN_ITS ---
Progress Notes Date of Service: 02/26/25 Progress Note: Patient presents for triage evaluation secondary to back pain at 37.5 weeks FHT: Moderate variability reactive no decelerations category I tracing [place]: rare Contractions Assessment and plan: no cervical change, Reactive NST, reassuring maternal and status patient discharged to home to follow-up in office. See problem list details for additional plan information. Charges/Coding Multi Select Codes Urinary/Genital Urinary/Genital CPT Codes: 96943-00 non-stress test Interp Assessment & Plan (1) Obesity affecting : QUALIFIERS: Trimester: second trimester Obesity type affecting : unspecified obesity Qualified Code(s): O99.212 - Obesity complicating , second trimester COMMENT: [id number] (2) FH: breast cancer in first degree relative: COMMENT: Mother 35yo-, Unknown if genetic testing was done (3) Supervision of normal : QUALIFIERS: Normal : other normal Trimester: third trimester Qualified Code(s): Z34.83 - Encounter for supervisio n of other normal , third trimester COMMENT: PRR, , DIANDRA 03/14/25,ila Olivares, Julio (4) : QUALIFIERS: Weeks of gestation: 37 weeks Qualified Code(s): Z3A.37 - 37 weeks gestation of COMMENT: GBS neg, declined NIPT & Carrier testing. low normal CL-repeat US 2 weeks. (5) Hx of depression, currently : (6) Rh negative state in antepartum period: COMMENT: O-, Rhogam @ 28wks( is O+) given 12/20/24 (7) Back pain: COMMENT: no cervical change, reactive NST
== END 2025-02-26 00:16 | disposition home or self-care (01) ==
LOC: WPOUT 21:31 → WP 21:32
PROVIDERS: Visit Provider Advanced Practice Midwife
DX: O99.891 Other specified diseases and conditions complicating pregnancy (principal); M54.9 Dorsalgia, unspecified; O99.213 Obesity complicating pregnancy, third trimester; Z3A.37 37 weeks gestation of pregnancy
CPT/HCPCS: 59025; 59050; 99221; G0378

== ENCOUNTER 2025-03-14 10:45 | Inpatient (IN) | payer MEDICAID, SELFPAY ==
[2025-03-14] VITALS (23 sets, daily range): BP systolic 112–133; BP diastolic 58–73; PULSE 64–97; RESP 16–18; TEMP 36.5–37.2; O2SAT 93–100; BMI 31.6
[2025-03-14] MEDS: Lactated Ringers 1,000 ML 50 ML IV (11:10)
[2025-03-14 11:29] LABS: Hematocrit 33.8 % (37-47); Hemoglobin 11.3 g/dL (12.0-15.0); Immature Granulocytes Count 0.110 X10^3/uL (0.0-0.0); Mean Corp Hgb Conc 33.4 g/dL (32-36); Mean Corpuscular Volume 85.8 fL (81-99); Mean Platelet Vol. 11.0 fl (6.2-12.0); NRBC Flagged by Analyzer 0 % (0-5); Platelet Count 177 K/mm3 (150-450); RBC Distribution Width CV 15.3 % (11.6-14.6); RBC Distribution Width SD 47.8 fl (35.1-43.9); Red Blood Count 3.94 M/mm3 (4.2-5.4); White Blood Count 14.9 K/mm3 (4.4-11.0)
[2025-03-14 12:09] LABS: Syphilis Antibodies Nonreactive (Nonreactive)
[2025-03-14] MEDS: Oxytocin 15 Units/NS 250ml 15 UNITS/250 ML IV.SOLN 334 UNITS IV (13:40)
[2025-03-14] MEDS: Oxytocin 15 Units/NS 250ml 15 UNITS/250 ML IV.SOLN 83 UNITS IV (14:10)
[2025-03-14] MEDS: GLYCERIN/WITCH HAZEL (TUCKS) MED..PAD 1 EACH TOPICAL (19:00)
[2025-03-14] MEDS: SELF ADMINISTRATION OF MEDS 1 EACH NOTE (19:00)
[2025-03-14] MEDS: Rho(D) Immune Globulin 300 MCG (1500 Unit) Syringe IV (20:05)
[2025-03-14] MEDS: 0.9% Saline Lock 10 ML Syringe IV (20:11)
[2025-03-15] VITALS (11 sets, daily range): BP systolic 114–129; BP diastolic 57–78; PULSE 64–84; RESP 16–18; TEMP 36.4–36.7; O2SAT 96–100
--- NOTE | 2025-03-15 | HP.PCM.OB_ITS ---
HPI - General General Date of Admission: 03/14/25 HPI Narrative RADHA DOUGLAS, is a 29 F who presents IAL regular ctx doing well no vb good fm Maternal Data Information DIANDRA Calculator Estimated Delivery Date Method Current WG Current Estimate 03/14/25 LMP (Certain) 40w 1d Other Estimates 03/20/25 Ultrasound #1 39w 2d PFSH PFSH Medical History Seasonal allergies Home Medications ?Medication ?Instructions ?Recorded ?Last Taken ?Type multivitamin no.47-iron fum 27 1 cap PO DAILY 08/04/24 Unknown History mg-folate no.1 1 mg-dha 300 mg capsule (PNV-DHA) pyridoxine (vitamin B6) 10 mg 10 mg PO TID 08/04/24 Un known History tablet Allergy/AdvReac Type Severity Reaction Status Date / Time No Known Allergies Allergy Verified 03/14/25 10:10 Family History Mother Cancer, Onset Age: 19 cervical Breast cancer, Onset Age: 35 Grandmother Diabetes Maternal Type 1 Social History adopted: No household members: spouse and children housing: house number of children: 1 current occupational status: employed current occupation: [employer] pets and animals: Yes pets and animals: dog(s) history of recent travel: No sexually active: Yes Smoking Status: Never smoker alcohol intake: never substance use type: does not use well-balanced diet: daily or most days caffeine: No eating out: 1-3 times/week during the past year weight has: remained stable what type of physical activity do you participate in: none cristobal/judaism: Hoahaoism seatbelt use: always do you feel safe at home: Yes additional social history: Julio History 2 Elective abortions Hx Para 1 Spontaneous abortions Hx # Term Pregnancies Ectopic pregnancies Hx # Pregnancies Multiple births # of living children 1 Past Pregnancies Del. Date Name GA/Weeks Outcome Route Bth Weight Infant Gen Labor Lgth Anesthesia Del Locatn Provider FOB 12/15/20 [facility] 37 live - full term 7#8oz Male epidural Josh Kim Visit Details Expected Delivery Route/Plan Labor Preferences- CB/BF classes: no labor support person: Enrique labor intervention preferences: [] pain management options preferred: limited cut cord/dad catch: yes : yes PP control planned: discussed discussed possible routes of delivery and associated risks: [] special requests: [] Plans Covid status: [] Flu vaccine: [] Tdap vaccine: given Rhogam: given 12/20/24 LARC form signed: given 01/01/25 Problem list reviewed and updated with the most current plan of care details and appropriate orders placed. Relevant counseling for the gestational age provided. Continue routine care and follow up unless otherwise noted in visit notes/problem list details OB Flowsheet Initial Weight: 195 lb Date -?-?-?-?-?-?-?-?-?-?-?-?- EGA Weight BP Urine Prot -?-?-?-?-?-?-?-?-?-?-?-?- Glucose FHR FuHt Pres Dilation -?-?-?-?-?-?-?-?-?-?-?-?- Effaced St Visit Note 08/18/24 -?-?-?-?-?-?-?-?-?-?-?-?- 10w 2d 195 lb 6 oz (+6 oz) 122/57 -?-?-?-?-?-?-?-?-?-?-?-?- 178 -?-?-?-?-?-?-?-?-?-?-?-?- KW- CRL 2.63 cm. measuring 9.3 weeks. Declines NIPT. 09/21/24 -?-?-?-?-?-?-?-?-?-?-?-?- 15w 1d 191 lb 6 oz (-3 lb 10 oz) 122/73 Negative -?-?-?-?-?-?-?-?-?-?-?-?- Negative 145 -?-?-?-?-?-?-?-?-?-?-?-?- JV- no cramping or spotting. has the complaint of shortness of breath at times. has some air hunger of complaints. 10/20/24 -?-?-?-?-?-?-?-?-?-?-?-?- 19w 2d 193 lb 8 oz (-1 lb 8 oz) 107/61 Negative -?-?-?-?-?-?-?-?-?-?-?-?- Negative 145 -?-?-?-?-?-?-?-?-?-?-?-?- Sm- no vb marcusi ng 11/13/24 -?-?-?-?-?-?-?-?-?-?-?-?- 22w 5d 197 lb 2 oz (+2 lb 2 oz) 110/68 Negative -?-?-?-?-?-?-?-?-?-?-?-?- Negative 143 -?-?-?-?-?-?-?-?-?-?-?-?- -No VB. Reji Brewster Some constipation/new med list given and reviewed 12/20/24 -?-?-?-?-?-?-?-?-?-?-?-?- 28w 0d 201 lb (+6 lb) 117/7 117/74 Negative -?-?-?-?-?-?-?-?-?-?-?-?- Negative 140 28 -?-?-?-?-?-?-?-?-?-?-?-?- SM- n ovb lof go od fm no reuglar ctx cbc gct rhogam 01/01/25 -?-?-?-?-?-?-?-?-?-?-?-?- 29w 5d 201 lb (+6 lb) 123/81 Negative -?-?-?-?-?-?-?-?-?-?-?-?- Negative 142 29 -?-?-?-?-?-?-?-?-?-?-?-?- MH-No Vb, LOF. G ood FM. tdap. larc 01/15/25 -?-?-?-?-?-?-?-?-?-?-?-?- 31w 5d 205 lb 3 oz (+10 lb 3 oz) 120/74 Negative -?-?-?-?-?-?-?-?-?-?-?-?- Negative 145 32 -?-?-?-?-?-?-?-?-?-?-?-?- SM- no vb lof go od fm no regular ctx, some left sided dicomfort at times 01/29/25 -?-?-?-?-?-?-?-?-?-?-?--?- 33w 5d 204 lb 8 oz (+9 lb 8 oz) 121/72 Negative -?-?-?-?-?-?-?-?-?-?-?-?- Negative 140 34 -?-?-?-?-?-?-?-?-?-?-?-?- KW- no vb/lof/ct x. good fm. GBS next visit. 02/16/25 -?-?-?-?-?-?-?-?-?-?-?-?- 36w 2d 210 lb 3 oz (+15 lb 3 oz) 121/80 Negative -?-?-?-?-?-?-?-?-?-?-?-?- Negative 135 37 2 -?-?-?-?-?-?-?-?-?-?-?-?- 60 -2 KW- no vb/ lof/ctx. good fm. GBS today. 02/22/25 -?-?-?-?-?-?-?-?-?-?-?-?- 37w 1d 213 lb 2 oz (+18 lb 2 oz) 122/75 Negative -?-?-?-?-?-?-?-?-?-?-?-?- Negative 131 37 Cephalic -?-?-?-?-?-?-?-?-?-?-?-?- JV- no lof , vag inal bleeding, or dec fm. declines pelvic exam. 03/01/25 -?-?-?-?-?-?-?-?-?-?-?-?- 38w 1d 210 lb (+15 lb) 115/77 Negative -?-?-?-?-?-?-?-?-?-?-?-?- Negative 145 38 3 -?-?-?-?-?-?-?-?-?-?-?-?- 70 -2 KW- no vb/ lof/ctx. good fm 03/09/25 -?-?-?-?-?-?-?-?-?-?-?--?- 39w 2d 210 lb 1 oz (+15 lb 1 oz) 125/77 Negative -?-?-?-?-?-?-?-?-?-?-?-?- Negative 140 39 3 -?-?-?-?-?-?-?-?-?-?-?-?- Sm- no vb lof go od fm no regular ctx NST FHR Rate Baby A Baseline: 140 Variability:: Moderate Accelerations:: 15 x 15 Decelerations:: None NST Reactive:: Yes FHR Category:: Category I Uterine Activity:: q3-5 ROS Constitutional Constitutional: Reports systems reviewed and no addt'l complaints, except as documented ENT HEENT: Reports systems reviewed and no addt'l complaints, except as documented Cardiovascular Cardiovascular: Reports systems reviewed and no addt'l complaints, except as documented Respiratory/Chest Respiratory/Chest: Reports systems reviewed and no addt'l complaints, except as documented Gastrointestinal Gastrointestinal: Reports systems reviewed and no addt'l complaints, except as documented and nausea; Denies abdominal pain Genitourinary Genitourinary: Reports systems reviewed and no addt'l complaints, except as documented, contractions Details: present and frequency (regular ) and movement Details: present Musculoskeletal Musculoskeletal: Reports systems reviewed and no addt'l complaints, except as documented Integumentary Integumentary: Reports as per HPI Neurologic Neurologic: Reports systems reviewed and no addt'l complaints, except as documented Endocrine Endocrinology: Reports systems reviewed and no addt'l complaints, except as documented Vital Signs Vital Signs Vital Signs: 03/14/25 10:15 03/14/25 10:15 03/14/25 10:16 Temperature Temperature Source Temporal Pulse Rate 81 Respiratory Rate Blood Pressure 127/73 H Blood Pressure Mean BP Systolic 127 BP Diastolic 73 Blood Pressure Source Blood Pressure Position Blood Pressure Location Pulse Ox Oxygen Delivery Method 03/14/25 10:16 03/14/25 10:16 03/14/25 11:22 Temperature 97.8 F Temperature Source Pulse Rate Respiratory Rate 18 Blood Pressure 133/72 H Blood Pressure Mean BP Systolic 133 BP Diastolic 72 Blood Pressure Source Blood Pressure Position Blood Pressure Location Pulse Ox Oxygen Delivery Method 03/14/25 11:22 03/14/25 11:22 03/14/25 11:22 Temperature Temperature Source Temporal Pulse Rate 83 Respiratory Rate 18 Blood Pressure Blood Pressure Mean BP Systolic BP Diastolic Blood Pressure Source Blood Pressure Position Blood Pressure Location Pulse Ox Oxygen Delivery Method 03/14/25 11:22 03/14/25 12:36 03/14/25 12:36 Temperature 99.0 F Temperature Source Pulse Rate 80 Respiratory Rate Blood Pressure 131/63 H Blood Pressure Mean BP Systolic 131 BP Diastolic 63 Blood Pressure Source Blood Pressure Position Blood Pressure Location Pulse Ox Oxygen Delivery Method 03/14/25 13:22 03/14/25 13:22 03/14/25 13:23 Temperature Temperature Source Pulse Rate 83 83 Respiratory Rate Blood Pressure Blood Pressure Mean BP Systolic BP Diastolic Blood Pressure Source Blood Pressure Position Blood Pressure Location Pulse Ox 99 Oxygen Delivery Method 03/14/25 13:23 03/14/25 13:49 03/14/25 13:49 Temperature Temperature Source Temporal Pulse Rate Respiratory Rate 18 Blood Pressure Blood Pressure Mean BP Systolic BP Diastolic Blood Pressure Source Blood Pressure Position Blood Pressure Location Pulse Ox 93 Oxygen Delivery Method 03/14/25 13:49 03/14/25 13:50 03/14/25 13:50 Temperature 97.9 F Temperature Source Pulse Rate 97 Respiratory Rate Blood Pressure Blood Pressure Mean BP Systolic BP Diastolic Blood Pressure Source Blood Pressure Position Blood Pressure Location Pulse Ox 98 Oxygen Delivery Method 03/14/25 14:03 03/14/25 14:05 03/14/25 14:05 Temperature Temperature Source Pulse Rate 96 Respiratory Rate 18 Blood Pressure 120/71 Blood Pressure Mean BP Systolic 120 BP Diastolic 71 Blood Pressure Source Blood Pressure Position Blood Pressure Location Pulse Ox Oxygen Delivery Method 03/14/25 14:20 03/14/25 14:20 03/14/25 14:33 Temperature Temperature Source Pulse Rate 83 87 Respiratory Rate Blood Pressure 123/58 H Blood Pressure Mean BP Systolic 123 BP Diastolic 58 Blood Pressure Source Blood Pressure Position Blood Pressure Location Pulse Ox Oxygen Delivery Method 03/14/25 14:33 03/14/25 14:33 03/14/25 14:33 Temperature Temperature Source Temporal Pulse Rate Respiratory Rate 18 Blood Pressure Blood Pressure Mean BP Systolic BP Diastolic Blood Pressure Source Blood Pressure Position Blood Pressure Location Pulse Ox 100 Oxygen Delivery Method 03/14/25 14:33 03/14/25 14:35 03/14/25 14:50 Temperature 97.7 F L Temperature Source Pulse Rate Respiratory Rate Blood Pressure 115/59 L 119/60 Blood Pressure Mean BP Systolic 115 119 BP Diastolic 59 60 Blood Pressure Source Blood Pressure Position Blood Pressure Location Pulse Ox Oxygen Delivery Method 03/14/25 14:50 03/14/25 14:50 03/14/25 15:05 Temperature Temperature Source Pulse Rate 79 Respiratory Rate 18 Blood Pressure 112/59 L Blood Pressure Mean BP Systolic 112 BP Diastolic 59 Blood Pressure Source Blood Pressure Position Blood Pressure Location Pulse Ox Oxygen Delivery Method 03/14/25 15:05 03/14/25 15:05 03/14/25 15:20 Temperature Temperature Source Pulse Rate 81 Respiratory Rate 18 18 Blood Pressure Blood Pressure Mean BP Systolic BP Diastolic Blood Pressure Source Blood Pressure Position Blood Pressure Location Pulse Ox Oxygen Delivery Method 03/14/25 15:35 03/14/25 15:50 03/14/25 16:01 Temperature Temperature Source Pulse Rate Respiratory Rate 18 18 Blood Pressure 132/68 H Blood Pressure Mean BP Systolic 132 BP Diastolic 68 Blood Pressure Source Blood Pressure Position Blood Pressure Location Pulse Ox Oxygen Delivery Method 03/14/25 16:01 03/14/25 16:02 03/14/25 16:02 Temperature 98.7 F Temperature Source Temporal Temporal Pulse Rate 85 85 Respiratory Rate 18 Blood Pressure 132/68 H Blood Pressure Mean 89 BP Systolic BP Diastolic Blood Pressure Source Monitor Blood Pressure Position Semi-Fowlers Blood Pressure Location Right Arm Pulse Ox Oxygen Delivery Method 03/14/25 20:09 03/14/25 20:09 03/14/25 20:09 Temperature Temperature Source Pulse Rate 95 Respiratory Rate Blood Pressure 125/72 H Blood Pressure Mean BP Systolic 125 BP Diastolic 72 Blood Pressure Source Blood Pressure Position Blood Pressure Location Pulse Ox 98 Oxygen Delivery Method 03/14/25 20:09 03/14/25 20:09 03/14/25 23:31 Temperature 98.3 F Temperature Source Temporal Temporal Pulse Rate 96 72 Respiratory Rate 16 Blood Pressure 125/72 H Blood Pressure Mean 89 BP Systolic BP Diastolic Blood Pressure Source Monitor Blood Pressure Position Semi-Fowlers Blood Pressure Location Right Arm Pulse Ox 98 Oxygen Delivery Method Room Air 03/14/25 23:31 03/14/25 23:31 03/14/25 23:31 Temperature 98.1 F Temperature Source Temporal Temporal Pulse Rate 70 Respiratory Rate 16 Blood Pressure 128/64 H Blood Pressure Mean 85 BP Systolic BP Diastolic Blood Pressure Source Monitor Blood Pressure Position Semi-Fowlers Blood Pressure Location Left Arm Pulse Ox 98 98 Oxygen Delivery Method Room Air 03/14/25 23:33 03/14/25 23:33 Temperature Temperature Source Pulse Rate 64 Respiratory Rate Blood Pressure 128/64 H Blood Pressure Mean BP Systolic 128 BP Diastolic 64 Blood Pressure Source Blood Pressure Position Blood Pressure Location Pulse Ox Oxygen Delivery Method Weight Weight: 208 lb 5.389 oz Body Mass Index (BMI) 31.6 Physical Exam Const alert, oriented x3 and healthy appearing Constitutional Narrative: uncomfortable with contractions HEENT normocephalic and moist oral mucous membranes Head and Scalp: atraumatic Neck full ROM, no lymphadenopathy, supple and thyroid normal General: trachea midline Thyroid: thyroid normal Lymph Lymphatic: no lymphadenopathy noted Chest inspection of chest normal Resp normal respiratory effort Cardio regular rate GI soft to palpation and non-tender GI Narrative: gravid Inspection: gravid external exam normal Bimanual Exam - Vag & Uterus: uterus non-tender Manual OB Exam: estimated gestational size appropriate, presentation cephalic, dilated, effaced and station Extremity normal to inspection General Extremity: Negative for edema Skin no rashes or lesions noted Neuro deep tendon reflexes 2+ bilaterally Motor Exam: strength 5/5 throughout and clonus absent Psych mental status grossly normal Labs Labs Labs: Blood Type O NEGATIVE Antibody Screen NEGATIVE Hct, (37-47) 33.8 % L Hgb, (12.0-15.0) 11.3 g/dL L Syphilis Total Ab, (Nonreactive) Nonreactive Rubella IgG Antibody, (Nonreactive) REAC Hep Bs Antigen, (Nonreactive) Nonreactive Hepatitis C Antibody, (Nonreactive) Nonreactive Chlamydia DNA (SHANTE), (Negative) Negative N.gonorrhoeae DNA (SHANTE), (Negative) Negative HIV 1&2 Antibody, (Nonreactive) Nonreactive Glucose 1 Hr 50 gm, (70-140) 108 mg/dL Assessment & Plan (1) Active labor at term: (2) Obesity affecting : QUALIFIERS: Trimester: second trimester Obesity type affecting : unspecified obesity Qualified Code(s): O99.212 - Obesity complicating , second trimester COMMENT: [id number] (3) FH: breast cancer in first degree relative: COMMENT: Mother 35yo-, Unknown if genetic testing was done (4) Supervision of normal : QUALIFIERS: Normal : other normal Trimester: third trimester Qualified Code(s): Z34.83 - Encounter for supervision of other normal , third trimester COMMENT: PRR, , DIANDRA 03/14/25,boy herve ADAM Elise, Julio (5) : QUALIFIERS: Weeks of gestation: 39 weeks Qualified Code(s): Z3A.39 - 39 weeks gestation of COMMENT: GBS neg, declined NIPT & Carrier testing. low normal CL-repeat US 2 weeks. (6) Hx of depression, currently : (7) Rh negative state in antepartum period: COMMENT: O-, Rhogam @ 28wks( is O+) given 12/20/24 PLAN: Plan Patient presents IOL, plan management for with pitocin/AROM. Pain management: prefers minimal intervention GBS negative. Management of any complications: none I have reviewed the [facility] and made any clinically relevant updates.
--- NOTE | 2025-03-15 00:04 | EX.PCM.OBVAG ---
Assessment & Plan (1) Active labor at term: (2) Back pain: COMMENT: no cervical change, reactive NST (3) Obesity affecting : QUALIFIERS: Trimester: second trimester Obesity type affecting : unspecified obesity Qualified Code(s): O99.212 - Obesity complicating , second trimester COMMENT: [id number] (4) FH: breast cancer in first degree relative: COMMENT: Mother 35yo-, Unknown if genetic testing was done (5) Supervision of normal : QUALIFIERS: Normal : other normal Trimester: third trimester Qualified Code(s): Z34.83 - Encounter for supervision of other normal , third trimester COMMENT: PRR, , DIANDRA 03/14/25,ila edgar [place], Julio (6) : QUALIFIERS: Weeks of gestation: 39 weeks Qualified Code(s): Z3A.39 - 39 weeks gestation of COMMENT: GBS neg, declined NIPT & Carrier testing. low normal CL-repeat US 2 weeks. (7) Hx of depression, currently : (8) Rh negative state in antepartum period: COMMENT: O-, Rhogam @ 28wks( is O+) given 12/20/24 (9) Vaginal delivery: COMMENT: sm ial ila edgar Maternal Data Information DIANDRA Calculator Estimated Delivery Date Method Current WG Current Estimate 03/14/25 LMP (Certain) 40w 1d Other Estimates 03/20/25 Ultrasound #1 39w 2d Vaginal Delivery Maternal Presentation Maternal Presentation: see assessment and plan Vaginal Delivery Information Procedure Performed: Spontaneous Vaginal Delivery Surgeon/Practitioner: Tiffanie Osorio Date of Procedure: 03/14/25 Type of anesthesia: Epidural Findings Description of procedure: Patient began pushing and delivered the head in the JELANI presentation. The head was delivered atraumatically and a loose nuchal cord ?1 was identified and easily reduced over the infant's head. The anterior and posterior shoulders delivered without complication followed by the rest of the infant and the was placed on the maternal abdomen. Delayed cord clamping was employed for approximately 60 seconds. Cord was clamped and cut and gentle traction was applied to the cord and the placenta delivered spontaneously immediately following it was noted to be intact with three-vessel cord. The perineum and vagina were inspected and noted to have no laceration. EBL was 200. Patient and infant tolerated delivery well. 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
--- NOTE | 2025-03-15 00:06 | DCINST_ITS ---
Discharge Instructions DC O2, CPAP, BIPAP needs Home O2 Discharge instructions: No Dressing / Incision Discharge Activity: Return to Normal Activity, May Not Drive (while taking narcotic pain medications.) and May Shower May resume sexual activity in: 4-6 weeks Dressing / Incision Call your doctor if your incision/area has: Continuous Slow Oozing, Sudden Increased Bleeding, Increased Pain/ Swelling, Increased Redness and Foul Smelling Discharge Follow Up Care Please Follow Up With: Tiffanie Osorio MD When: Call [phone] to make an appointment with your doctor in 6 weeks. If you had elevated blood pressure or 4th degree laceration, you will need to be seen in 2 weeks. Test Results: Test results from this visit will be discussed in further detail at your follow- up appointment, if applicable. Discharge Plan Admission Admit Date/Time: 03/14/25 10:45 Attending Provider: Tiffanie Osorio Primary Care Provider: Care Physician,No Primary Discharge Orders/Prescriptions Prescriptions: No Action PNV-DHA 27 mg iron-1 mg -300 mg capsule 1 cap PO DAILY pyridoxine (vitamin B6) 10 mg tablet 10 mg PO TID Referrals / Follow Up: Care Physician,No Primary [Primary Care Provider, Medical]
--- NOTE | 2025-03-15 07:44 | PCM.PN.OB ---
Subjective Subjective Patient doing well without complaints. Tolerating PO. Ambulating and voiding without difficulty. Feeding well. Denies chest pain, shortness of breath, calf pain/swelling, fevers, chills, lightheadedness. Objective Data Objective Data Vital Signs: Vital Signs Temp Pulse Resp BP Pulse Ox O2 Del Method 97.9 F 80 16 123/61 H 96 Room Air 03/15/25 03:07 03/15/25 03:08 03/15/25 03:07 03/15/25 03:08 03/15/25 03:07 03/15/25 03:07 Oxygen Delivery Method Room Air Weight: 208 lb 5.389 oz Body Mass Index (BMI) 31.6 Intake & Output: Intake and Output for Last 24 Hours 03/13/25 03/14/25 03/15/25 23:59 23:59 23:59 Intake Total 471.83 / 471.83 Output Total 1300 / 1300 Balance -828.17 / -828.17 Lab / Micro Data 03/14/25 11:10 Labs: Laboratory Results - last 24 hr 03/14/25 11:10: WBC 14.9 H, RBC 3.94 L, Hgb 11.3 L, Hct 33.8 L, MCV 85.8, MCH 28.7, MCHC 33.4, RDW Std Deviation 47.8 H, RDW Coeff of Staci 15.3 H, Plt Count 177, MPV 11.0, Immature Gran % (Auto) 0.700, Neut % (Auto) 77.8 H, Lymph % (Auto) 14.1 L, Schleicher % (Auto) 6.9, Eos % (Auto) 0.3, Baso % (Auto) 0.2, Absolute Neuts (auto) 11.6 H, Absolute Lymphs (auto) 2.10, Nucleated RBC % 0, Syphilis Total Ab Nonreactive, Blood Type O NEGATIVE, Antibody Screen NEGATIVE 03/14/25 15:10: Screen NEGATIVE, Baby's Blood Type A POSITIVE, Baby's DARLIN NEGATIVE ROS Constitutional Constitutional: Denies chills, fatigue, fever(s), poor appetite or weakness Eyes Eyes: Denies blurry vision, change in vision, seeing flashes or spots in vision ENT HEENT: Denies dizziness, headache(s), loss taste/smell or sore throat Cardiovascular Cardiovascular: Denies chest pain, dizziness, dyspnea, irregular heart rhythm, palpitations or rapid heart rate Respiratory/Chest Respiratory/Chest: Denies chest tightness, cough, dyspnea or breast pain Gastrointestinal Gastrointestinal: Denies abdominal pain, constipation or vomiting Genitourinary Genitourinary: Denies dysuria or flank pain Musculoskeletal Musculoskeletal: Denies difficulty walking, joint pain, limited range of motion or numbness Neurologic Neurologic: Denies abnormal movements, abnormal speech, dizziness, numbness, seizure-like activity or syncope Psychiatric Psychiatric: Denies anxiety, behavioral changes, change in appetite, confusion, depression or suicidal thoughts Physical Exam Const alert, oriented x3 and no apparent distress General Appearance: cooperative and comfortable Resp normal respiratory effort Cardio regular rate GI normal to inspection, nondistended, normoactive bowel sounds GI Narrative: uterus is firm below umbilicus Palpation: soft Back/Spine no CVA tenderness and thoraco-lumbar ROM normal Extremity normal to inspection, no clubbing, cyanosis or edema, no calf tenderness and no pedal edema Psych mental status grossly normal, thought process normal, cooperative, affect normal, speech normal, activity/motor behavior normal, denies homicidal ideation and denies suicidal ideation Assessment & Plan (1) Vaginal delivery: COMMENT: sm ial ila edgar (2) Obesity affecting : QUALIFIERS: Trimester: second trimester Obesity type affecting : unspecified obesity Qualified Code(s): O99.212 - Obesity complicating , second trimester COMMENT: [id number] (3) FH: breast cancer in first degree relative: COMMENT: Mother 35yo-, Unknown if genetic testing was done (4) Supervision of normal : QUALIFIERS: Normal : other normal Trimester: third trimester Qualified Code(s): Z34.83 - Encounter for supervision of other normal , third trimester COMMENT: PRR, , DIANDRA 03/14/25,ila Olivares, Julio (5) : QUALIFIERS: Weeks of gestation: 39 weeks Qualified Code(s): Z3A.39 - 39 weeks gestation of COMMENT: GBS neg, declined NIPT & Carrier testing. low normal CL-repeat US 2 weeks. (6) Hx of depression, currently : (7) Rh negative state in antepartum period: COMMENT: O-, Rhogam @ 28wks( is O+) given 12/20/24 PLAN: Plan s/p PPD # 1 1. routine post delivery care 2. breast feeding- support given 3. rh neg work up performed 4. rubella immune 5. patient wants to stay one more night.
[2025-03-15] MEDS: GLYCERIN/WITCH HAZEL (TUCKS) MED..PAD 1 EACH TOPICAL ×2 (09:50→12:47)
[2025-03-15] MEDS: SELF ADMINISTRATION OF MEDS 1 EACH NOTE (12:47)
--- NOTE | 2025-03-15 13:23 | CASEMGMT ---
Social Work Assessment Labor and Delivery Unit Patient Address:[id number] [place] [id number] Phone number: [phone] Date of Referral: 03/15/25 Time of Referral:? 1010 Referred By: Dr. Osorio Date of Intervention: ??03/15/25 Time of Intervention:? 1200 Reason for Referral:? hx of depression Sw completed chart review and acknowledges social work consult. Sw presented to bedside and introduced self to mother of baby (MOB), Alda and father of baby (FOB), Julio. Sw explained reason for sw involvement and completed psychosocial assessment. History obtained from: medical records, MOB and FOB Household composition: Currently residing in the family home is BRIAN, BLAS, their 4 year old son, Elise and baby when ready for discharge. PRADEEPB states that they have a hole in their basement that he is working on fixing, but other than that parents report their home is safe and secure. Patient's parent/guardian status:? ?Parents have been together for 5 years after being introduced to each other by BRIAN's sister. They have been together for 5 years, and baby is second baby together. No concerns reported of domestic violence or intimate partner violence. Medical History: ?BRIAN is 29 year old female who is 2, para 1- now 2 following labor and delivery of . BRIAN received routine care during with [facility]. BRIAN presented to hospital in active labor and delivered baby via vaginal delivery at 40 weeks gestation. Baby boy, named Jr Rahman, was born weighing 8lb 9oz and had apgars of 7 and 9 at one and five minutes of life, respectfully. BRIAN is breast feeding and states that baby will be followed by Dr. Orta for pediatric care. Educational Status:? Both parents graduated from high school, BRIAN has some college but no degree and BLAS obtained his associates degree. Parents deny any problems with reading, learning or comprehension. 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 Supplies:??All necessary baby supplies obtained, including: car seat, safe sleep space, clothes, diapers and wipes. Childcare/Caregiver(s):? BRIAN will be the primary caregiver to baby along with BLAS when he is not working. Transportation:?? Both parents have their drivers license and have one vehicle that they share between the two of them. MOB states that she prefers that BLAS drives when they go anywhere. FOB states that his place of employment is close enough for him to walk and that way MOB has access to the vehicle if she needs it. Programs/Agencies Involved: ?MOB and children have Medicaid insurance, SNAP benefits and WIC. BLAS expresses desire to get connected to mental health supports for himself and also potentially for MOB. Sw provided parents with community mental health agencies and offered to assist in getting parents scheduled appointments. FOB states he and MOB will look through the options and will hold each other accountable to get scheduled. ?? Children Services/Legal Issues:??No prior children services involvement, no issues or concerns warranting referral to be made at this time. ? Behavioral Health Issues: ??Mental Health History:??BLAS states that he has always had anxiety and depression at baseline, however did not ever have significant difficulties that warranted attention until their first baby was born. BLAS states that he had a night terror the first night they were home from the hospital?and this really impacted him. BLAS states that there were a lot of struggles that MOB and baby experienced with breast feeding and he did his best to help her, which he took on a lot of that stress. BLAS states that later on in that first week at home, he started to have thoughts of wanted to be , and was hospitalized at an inpatient psychiatric facility. BLAS states that when he was discharged from the inpatient psychiatric facility after seven days he was scheduled with a psychiatrist for follow up, but felt that they only wanted to medicate him, and he did not like how he felt medicated when trying to care for his son. BLAS states that slowly his mental health improved, and he has not had any thoughts of self harm since then. MOB states that she also experienced anxiety after her first baby was born. MOB states that it all stemmed from struggles with breast feeding. MOB states that the solution to that was exclusively pumping. Substance Use History:??Parents deny substance use prior to and during . Family History:?Parents deny family history of substance use or significant mental health history. ? Drug Screens: ??No drug screens observed while completing chart review. Family/Social Stressors:? BLAS reports that his biggest stressors at this time are the family's financial concerns. BLAS states that they had a lot of debt that he was working on paying off, and was doing well with it, until he got laid off last May. BLAS states that their home needs some home repairs and he got behind with their mortgage payment. BLAS states that he got a Foreclosure notice last week that he is still working through with his mortgage company. Sw discussed resources that are available to parents at [facility], and also provided parents with a 2-1-1 brochure that provides list of all [facility] resources. Sw also provided parents with brochure of mental health resources. Support Systems: BRIAN states that her aunt and uncle are her biggest supports along with BLAS's mom. Depression/Shaken Baby/Safe Sleeping:? Sw educated parents on signs and symptoms of baby blues and depression and anxiety. MOB and FOB express understanding. BLAS states that if MOB were to struggle he would be able to recognize what that looks like and would know how to help her. Since having baby BRIAN reports that she feels good, denies having anxiety, feeling down, tearful or depressed. Sw asked BLAS how he is feeling due to his mental health history following the last experience that he experienced. BLAS states that he is doing okay, and reports that mentally he feels good, is not in distress as he was the last time they had a baby, and reports that he is hopeful that the financial things will work themselves out, and is looking forward to getting connected to a mental health professional to help him with his mental health status. Sw educated parents on shaken baby prevention and ABCs of safe sleep, parents express understanding. ASSESSMENT:?MOB and baby admitted following labor and delivery. Both parents report to experiencing symptoms following the delivery of their first baby. BLAS has required inpatient psychiatric hospitalization due to thoughts to hurt himself following the of their first baby. BLAS denies thoughts, intent or plan since that time four years ago. FOB and MOB express that biggest areas of concern at this time are financial, and not in relation to having baby. MOB and FOB state that they are excited for baby and looking forward to having both boys grow up together. MOB was observed laying in bed comfortably and was holding baby and feeding him, reported okay to complete assessment. FOB sitting comfortably on couch. Parents answered questions asked. FOB more talkative and answering questions, however would look at MOB and ask her to answer questions too, if she felt as though he was misspeaking at any time. Parents are looking to get connected to mental health resources and supports- open to resources provided by sw. FOB states that he is going to look through information provided, and MOB will assist in getting appointments connected. Parents report to having all necessary baby supplies and have natural supports in place. PLAN:? No other services requested or indicated. MOB and baby to be discharged when medically ready. Parents were provided literature regarding: signs and symptoms of baby blues and mood and anxiety disorders, Help Me Grow, shaken baby prevention, ABCs of safe sleep and a list of county resources that are available for them should any needs present themselves. Rosita Waggoner, GL[employer] SELECTOR, [employer]
--- NOTE | 2025-03-15 20:55 | NURSING ---
RN asked karen if she wanted her flu vaccine while in the hospital since her order fell off the work list and wasn't ordered in the MAR but patient marked Y during admission questions. Patient refused at this time, states she would just like to wait now. RN verbalized understanding
[2025-03-16 03:07] VITALS: BP 113/56; PULSE 64
[2025-03-16 03:08] VITALS: BP 113/56; PULSE 71; PULSE 72; RESP 16; TEMP 36.5; O2SAT 97
[2025-03-16 07:51] VITALS: BP 122/65; PULSE 75
[2025-03-16 07:52] VITALS: BP 122/65; PULSE 72; PULSE 78; RESP 18; TEMP 36.8; O2SAT 97; O2SAT 98
--- NOTE | 2025-03-16 08:01 | PCM.PN.OB ---
Subjective Subjective Patient doing well without complaints. Tolerating PO. Ambulating and voiding without difficulty. Feeding well. Denies chest pain, shortness of breath, calf pain/swelling, fevers, chills, lightheadedness. Objective Data Objective Data Vital Signs: Vital Signs Temp Pulse Resp BP Pulse Ox O2 Del Method 98.2 F 72 18 122/65 H 98 Room Air 03/16/25 07:52 03/16/25 07:52 03/16/25 07:52 03/16/25 07:52 03/16/25 07:52 03/16/25 07:52 Oxygen Delivery Method Room Air Weight: 208 lb 5.389 oz Body Mass Index (BMI) 31.6 Intake & Output: Intake and Output for Last 24 Hours 03/14/25 03/15/25 03/16/25 23:59 23:59 23:59 Intake Total 471.83 / 471.83 Output Total 1300 / 1300 Balance -828.17 / -828.17 Lab / Micro Data 03/14/25 11:10 ROS Constitutional Constitutional: Reports systems reviewed and no addt'l complaints, except as documented; Denies anorexia or headache(s) Cardiovascular Cardiovascular: Reports systems reviewed and no addt'l complaints, except as documented; Denies dizziness, dyspnea, nausea or tachypnea Respiratory/Chest Respiratory/Chest: Reports systems reviewed and no addt'l complaints, except as documented; Denies cough, dyspnea, shortness of breath at rest or tachypnea Gastrointestinal Gastrointestinal: Reports systems reviewed and no addt'l complaints, except as documented; Denies abdominal pain, constipation or nausea Genitourinary Genitourinary: Reports systems reviewed and no addt'l complaints, except as documented; Denies burning urination, difficulty urinating, dysuria, urinary frequency or urinary incontinence Musculoskeletal Musculoskeletal: Reports systems reviewed and no addt'l complaints, except as documented Integumentary Integumentary: Reports systems reviewed and no addt'l complaints, except as documented Neurologic Neurologic: Reports systems reviewed and no addt'l complaints, except as documented; Denies abnormal speech, dizziness or headache(s) Psychiatric Psychiatric: Reports systems reviewed and no addt'l complaints, except as documented Endocrine Endocrinology: Reports systems reviewed and no addt'l complaints, except as documented Hematologic/Lymphatic Hematologic/Lymphatic: Reports systems reviewed and no addt'l complaints, except as documented Physical Exam Const alert, oriented x3 and no apparent distress Neck full ROM Resp normal respiratory effort, normal air movement and no retractions Effort and Inspection: able to speak in complete sentences and symmetric chest movement GI soft to palpation Bladder / Kidney Exam: bladder normal to palpation Uterus Palpation: uterus fundus firm Extremity normal to inspection and full ROM Psych mental status grossly normal, thought process normal and cooperative Assessment & Plan (1) Vaginal delivery: COMMENT: sm ial ila edgar PLAN: s/p PPD # 2 1. routine post delivery care 2. breast feeding- support given 3. rh positive 4. rubella immune 5. discharge home (2) Obesity affecting : QUALIFIERS: Trimester: second trimester Obesity type affecting : unspecified obesity Qualified Code(s): O99.212 - Obesity complicating , second trimester COMMENT: [id number] (3) FH: breast cancer in first degree relative: COMMENT: Mother 35yo-, Unknown if genetic testing was done (4) Supervision of normal : QUALIFIERS: Normal : other normal Trimester: third trimester Qualified Code(s): Z34.83 - Encounter for supervision of other normal , third trimester COMMENT: PRR, , DIANDRA 03/14/25,ila Marroquinham, Julio (5) : QUALIFIERS: Weeks of gestation: 39 weeks Qualified Code(s): Z3A.39 - 39 weeks gestation of COMMENT: GBS neg, declined NIPT & Carrier testing. low normal CL-repeat US 2 weeks. (6) Hx of depression, currently : (7) Rh negative state in antepartum period: COMMENT: O-, Rhogam @ 28wks( is O+) given 12/20/24 Charges/Coding Multi Select Codes Urinary/Genital Urinary/Genital CPT Codes: No Charge
== END 2025-03-16 12:15 | disposition home or self-care (01) | DRG 560 ==
LOC: WPOUT 10:48 → WP 10:48
PROVIDERS: Admitting Provider Obstetrics & Gynecology; Referring Provider Obstetrics & Gynecology; Visit Provider Obstetrics & Gynecology
DX: O99.214 Obesity complicating childbirth (principal); Z37.0 Single live birth; O69.81X0 Labor and delivery complicated by cord around neck, without compression, not applicable or unspecified; Z3A.39 39 weeks gestation of pregnancy; Z80.3 Family history of malignant neoplasm of breast; Z86.59 Personal history of other mental and behavioral disorders; Z67.91 Unspecified blood type, Rh negative
CPT/HCPCS: 59025; 59050; 85025; 85461; 86780; 86850; 86900; 86901; 90384; 99221; A4216; G0378; J2790; J2791